=== PATIENT | female | born 1935 | race Caucasian/White ===

== ENCOUNTER 2019-09-19 09:11 | Outpatient (CLI) | payer MEDICARE, SELFPAY ==
--- NOTE | 2019-09-19 09:30 | USCV_ITS ---
Jaylin Clemens Age: 84 Gender: F : 1935 Exam Date: 09/19/2019 09:23 Ordering Phys: Lane Kennedy MD Technologist: Jackie Sharma [place] [facility] [place]: [place] BP: / HR: 43 Rhythm: Sinus Technical Quality: MEASUREMENTS (Male / Female) Normal Values 2D ECHO LV Diastolic Diameter PLAX 2.8 cm 4.2 - 5.9 / 3.9 - 5.3 cm LV Systolic Diameter PLAX 1.7 cm IVS Diastolic Thickness 1.5 cm 0.6 - 1.0 / 0.6 - 0.9 cm IVS Systolic Thickness 1.4 cm LVPW Diastolic Thickness 1.8 cm 0.6 - 1.0 / 0.6 - 0.9 cm LVPW Systolic Thickness 1.4 cm LVOT Diameter 2.0 cm LV Ejection Fraction 2D Teich 72.0 % LV Ejection Fraction MOD 2C 66.1 % LV Ejection Fraction 2C AL 66.4 % LA Diameter 3.5 cm LA Width 3.2 cm LA Height 3.8 cm RA Width 2.8 cm RA Height 3.8 cm Aorta at Sinotubular Diameter 2.6 cm M-MODE LV Diastolic Diameter MM 4.9 cm 4.2 - 5.9 / 3.9 - 5.3 cm LV Systolic Diameter MM 2.9 cm LV Ejection Fraction MM Teich 70.9 % IVS Diastolic Thickness MM 0.9 cm 0.6 - 1.0 / 0.6 - 0.9 cm IVS Systolic Thickness MM 1.3 cm LVPW Diastolic Thickness MM 1.2 cm 0.6 - 1.0 / 0.6 - 0.9 cm LVPW Systolic Thickness MM 1.5 cm RV Diastolic Diameter MM 1.1 cm Aortic Annulus Diameter 2.8 cm LA Ao Ratio MM 1.2 MV E Point Septal Separation 0.1 cm DOPPLER AV Peak Velocity 135.0 cm/s LVOT Peak Velocity 104.0 cm/s AV Area Cont Eq vti 2.5 cm squared AV Area Cont Eq pk 2.5 cm squared MV Area PHT 5.0 cm squared Mitral E to A Ratio 2.8 MV E' Velocity 140.0 cm/s TR Peak Velocity 338.0 cm/s TR Peak Gradient 45.7 mmHg TV Peak E Velocity 105.0 cm/s Right Atrial Pressure 3.0 mmHg Pulmonary Artery Systolic Pressu 48.7 mmHg PV Peak Velocity 72.0 cm/s FINDINGS Left Ventricle Normal left ventricular size and systolic function, EF 66 %. No regional wall motion abnormalities. Right Ventricle Normal right ventricular size and systolic function. Right Atrium Mildly increased right atrial size. Left Atrium Mildly increased left atrial size. Mitral Valve Thickened mitral valve. Moderate mitral annular calcification. Minimal prolapse of the anterior mitral leaflet.moderate mitral valve regurgitation. Aortic Valve Thickened aortic valve. Tricuspid Valve Moderate tricuspid valve regurgitation. Estimated pulmonary artery peak systolic pressure of 49 mmHg Pulmonic Valve Structurally normal pulmonic valve without significant stenosis. There is no pulmonic regurgitation. Pericardium Normal pericardium without effusion. Aorta Normal ascending aorta dimension. CONCLUSIONS Normal left ventricular size and systolic function, EF 66 %. No regional wall motion abnormalities. Mild biatrial enlargement. Thickened mitral valve. Moderate mitral annular calcification. prolapse of the anterior mitral leaflet. Moderate mitral valve regurgitation. Moderate tricuspid valve regurgitation. Estimated pulmonary artery peak systolic pressure of 49 mmHg. There is no pericardial effusion. There are no intracardiac masses. No previous study is available for comparison. Dr Patt Zapata MD FACC (Electronically Signed) Final Date: 19 September 2019 12:51 S
== END 2019-09-19 09:12 | disposition home or self-care (01) ==
PROVIDERS: Family Provider Internal Medicine; PCP Internal Medicine; Visit Provider Internal Medicine
DX: I48.91 Unspecified atrial fibrillation (principal); I08.1 Rheumatic disorders of both mitral and tricuspid valves
CPT/HCPCS: 93306

== ENCOUNTER → 2020-02-27 15:11 | Outpatient (BNVA) | payer MEDICARE, SELFPAY | PROVIDERS: Family Provider Internal Medicine; PCP Internal Medicine; Visit Provider Internal Medicine | DX: I48.91 Unspecified atrial fibrillation (principal); E11.9 Type 2 diabetes mellitus without complications | CPT/HCPCS: 80053; 84443; 85025 ==

== ENCOUNTER 2020-04-11 13:39 | Outpatient (CLI) | payer MEDICARE, SELFPAY ==
--- NOTE | 2020-04-11 13:49 | MM_ITS ---
WS: [id number] BILATERAL SCREENING DIGITAL MAMMOGRAM WITH CAD HISTORY: SCREENING COMPARISON: 09/21/2018, 09/10/2017 Bilateral CC and MLO views submitted. Computer aided detection analyzed. Breast composition: There are scattered areas of fibroglandular density. No suspicious masses, microc alcifications or architectural distortion. There are numerous benign-appearing and stable calcificati ons throughout each breast. No significant change or abnormal calcifications developing. MM/[id number] IMPRESSION: BI-RADS: 2-Benign FOLLOW UP: 1 Year Follow-up
== END 2020-04-11 13:40 | disposition home or self-care (01) ==
LOC: RADSHAW 13:43
PROVIDERS: PCP Internal Medicine; Visit Provider Internal Medicine
DX: Z12.31 Encounter for screening mammogram for malignant neoplasm of breast (principal)
CPT/HCPCS: 77067

== ENCOUNTER 2020-09-07 13:05 | Observation (INO) | payer MEDICARE, SELFPAY ==
[2020-09-07] VITALS (14 sets, daily range): BP systolic 133–164; BP diastolic 58–86; PULSE 70–94; RESP 16–25; TEMP 36.6–37.1; O2SAT 19–100
--- NOTE | 2020-09-07 14:09 | PC.NURSE ---
Direct admit for cardioversion Received pt from Dr. Airta's clinic. Pt is alert, oriented, reports of shortness of breath upon exertion. Cool, mottled skin on feet and hands. Pt denies any pain at this time. Telemetry shows Afib on controlled rate between 80s to 100s. Call light within reach. Oriented pt to staff. Confirmed with Pt that she last took her Xarelto yesterday around noon.
--- NOTE | 2020-09-07 14:55 | ANES.PREANE2 ---
Pre-Anesthetic Assessment Pre-Anesthetic Assessment: Height/Weight: Height 1.65 m Weight 63.503 kg Preop Diagnosis: atrial fibrillation. Proposed Procedure: cardioversion Familial anesthetic complications: none Was Beta Laura taken within 24 hours: N/A (no taken on 1200 09/07/20) Last intake: meal 0630 liquids 0630 Social: Social History: No alcohol and No tobacco Exam: Pre-Anes Outpt Exam: alert, oriented x 3 and clear to auscultation bilaterally Airway: Submandibular: WNL Cervical ROM: WNL MP: 2 Dentition: Partials Additional comments: permenant bridge. 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 Mitral valve regurgitation New onset a-fib Palpitation Recurrent depressive disorder Tricuspid regurgitation Surgical History History of colonoscopy History of hemiarthroplasty of left hip History of hemorrhoidectomy History of hysterectomy History of oophorectomy History of tonsillectomy and adenoidectomy Status post hip hemiarthroplasty Family History Other CAD (coronary artery disease) Diabetes Heart disease Hypertension Denies family history of Chronic kidney disease (CKD) Anesthesia complication Bleeding disorder Family history of premature coronary artery disease Lung disease Cancer Social History Smoking and tobacco status: never smoked Alcohol intake: current Alcohol intake frequency: few times a month Alcohol type: wine Household members: spouse Marital status: History of recent travel: No Data Anesthesia Cardiac Studies: Cardiac Event Monitor 07/06/20
--- NOTE | 2020-09-07 15:15 | PC.NURSE ---
Synchronized cardioversion Pt signed the consent. Time-out checked with Dr. Arita at bedside. Anesthesiologist at bedside. synchronized cardioversion x1. Pt converted to Sinus Rhythm. EKG taken post cardioversion. SR w/occasional PAC's. Pt is awake, alert, oriented. Denies any pain post moderate sedation. VS taken. Received verbal order from Dr. Arita read back to give IVP 20 mg Lasix one time now.
--- NOTE | 2020-09-07 15:29 | ECG_ITS ---
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 Measurements Intervals [place] Rate: 68 P: 71 TX: 185 QRS: 1 QRSD: 84 T: 66 QT: 418 QTc: 446 Interpretive Statements SINUS RHYTHM WITH MARKED SINUS ARRHYTHMIA Compared to ECG 10/11/2016 04:10:31 Sinus bradycardia no longer present Myocardial infarct finding no longer present Electronically Signed On 09-08-2020 19:32:29 INDUSTRIAL TRUCK MECHANIC by Patt Zapata M.D. [id number] f
--- NOTE | 2020-09-07 15:36 | ANE.PACU2 ---
Inpatient post-anesthesia follow up: Airway intact: Yes Vital signs: Temperature Pulse Rate Respiratory Rate Blood Pressure Pulse Oximetry Oxygen Delivery Me thod Room Air Oxygen Flow Rate Fraction of Inspir ed Oxygen Hydration adequate: Yes Nausea and vomiting: No Pain level: 1 Additional Comments: Sedated
[2020-09-07] MEDS: FUROsemide 10 mg/mL SDV 2mL 20 MG IVP (16:02)
--- NOTE | 2020-09-07 16:37 | P.HP_ITS ---
Providers/Chief Complaint Admitting Physician: Wisam Arita MD Primary Care Provider: Lane Kennedy MD Chief Complaint: electro cardio version History of Present Illness Jaylin Clemens is a 85 year old female past medical history significant for difficulty controlled new onset of atrial fibrillation on anticoagulation saw me in the clinic. She was scheduled to undergo DC cardioversion in the near future however she continues to feel weak jittery and short of breath. It is the reason she was brought in today in our clinic. When I saw her in the clinic she appeared to be pale and anemic at the same time her heart was racing and she was in A. fib not tolerating it. She was admitted to the hospital under observation for 24-hour, after explaining risk benefit and alternative for the procedure, she underwent electrical cardioversion with biphasic 120 J shock converted to sinus rhythm under anesthesia administered by anesthesiologist. Patient tolerated procedure well and felt better. CBC was consistent with anemia with hemoglobin of 6.5. Patient admits to black tar-like stool in the last few days. Review of Systems Psych: Denies: sleeping more Medications/Allergies Home Medications Medication Instructions Recorded Confirmed Last Taken Type Fish Oil 1 cap PO QAM 09/07/20 09/07/20 09/07/20 History Garlique 1,000 mg PO DAILY 09/07/20 09/07/20 Unknown History Triple-Stre Glucosamine Chondr See Rx Instructions .ROUTE .COMPLEX 09/07/20 09/07/20 Unknown History acetaminophen [Tylenol Extra 1,000 mg PO BID 09/07/20 09/07/20 Unknown History Strength] calcium 1 tab PO BID 09/07/20 09/07/20 Unknown History dronedarone [Multaq] 400 mg PO BID 09/07/20 09/07/20 09/07/20 05:15 History eplerenone [Inspra] 25 mg PO DAILY@09/07/20 09/07/20 Unknown History felodipine 5 mg PO DAILY 09/07/20 09/07/20 Unknown History levothyroxine 50 mcg PO DAILY@09/07/20 09/07/20 09/07/20 05:15 History lisinopril 10 mg PO DAILY@09/07/20 09/07/20 09/07/20 History rivaroxaban [Xarelto] 20 mg PO DAILY 09/07/20 09/07/20 09/07/20 History simvastatin 10 mg PO DAILY@12 09/07/20 09/07/20 09/07/20 05:15 History venlafaxine 112.5 mg PO DAILY@06 09/07/20 09/07/20 09/07/20 History vit C,R-Rq-vwakn-lutein-zeaxan 1 tab PO BID 09/07/20 09/07/20 Unknown History [PreserVision AREDS-2] Allergies Allergy/AdvReac Type Severity Reaction Status Date / Time nifedipine Allergy ADR-Dizzine Verified 09/07/20 16:39 ss PFSH Acute PFSH: Medical History Essential (primary) hypertension Essential hypertension Hyperlipidemia 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 Mitral valve regurgitation New onset a-fib Palpitation Recurrent depressive disorder Tricuspid regurgitation Surgical History History of colonoscopy History of hemiarthroplasty of left hip History of hemorrhoidectomy History of hysterectomy History of oophorectomy History of tonsillectomy and adenoidectomy Status post hip hemiarthroplasty Family History Other CAD (coronary artery disease) Diabetes Heart disease Hypertension Denies family history of Chronic kidney disease (CKD) Anesthesia complication Bleeding disorder Family history of premature coronary artery disease Lung disease Cancer Social History Smoking and tobacco status: never smoked Alcohol intake: current Alcohol intake frequency: few times a month Alcohol type: wine Household members: spouse Marital status: History of recent travel: No Vitals/I&O/Wt Weight last 48 hrs Weight 140 lb Physical Exam Narrative: EXAM NARRATIVE: GENERAL: Patient is alert, awake and oriented x3. NECK: No jugular vein distension. HEENT: No cyanosis. No icterus. No pallor. HEART: Regular S1 and S2. No murmur, rub or gallop. LUNGS: Clear to auscultate bilaterally. ABDOMEN: Soft, nontender and nondistended. Positive bowel sounds. No guarding, rebound or tenderness. CENTRAL NERVOUS SYSTEM: Grossly nonfocal. EXTREMITIES: Lower extremities without edema bilaterally. A&P Assessment and plan (1) Chronic a-fib: Patient underwent electrical cardioversion. She is in sinus rhythm now continue Multaq 40 mg twice a day. Xarelto has been discontinued due to severe anemia and GI bleed Status: Chronic (2) GI bleed: Admits to melena hemoglobin is 6.5 I will recheck hemoglobin if still 6.5 I will transfuse her with 2 packed red blood cells. Will check occult blood in the stool. I will add Protonix twice a day. As an outpatient we may will ask for endoscopy and colonoscopy. Status: Acute Qualifiers: GI bleed type/associated pathology: unspecified gastrointestinal hemorrhage type Qualified Code(s): K92.2 - Gastrointestinal hemorrhage, unspecified (3) Mitral valve regurgitation: Continue diuretics continue rate control Status: Acute Qualifiers: Cardiac valve disease etiology: nonrheumatic Qualified Code(s): I34.0 - Nonrheumatic mitral (valve) insufficiency (4) Essential hypertension: Well-controlled continue medicine Status: Acute Attestations Medical Necessity Statement*: Patient require continuation hospitalization for above defined care. Coding Level of Care Code New Pt Acute Managed Care Liaison for g Fwd Patient Type New History Comprehensive Exam Comprehensive Medical Decision Making Moderate Complexity Diagnoses Chronic a-fib I48.20 GI bleed K92.2 GI bleed type/associated pathology: unspecified gastrointestinal hemorrhage type Mitral valve regurgitation I34.0 Cardiac valve disease etiology: nonrheumatic Essential hypertension I10
--- NOTE | 2020-09-07 16:43 | PC.PHAR ---
pt states her metoprolol tartrate 25mg was used prn and dced a few days ago- rx filled on 08/15/20 90d/s multaq 400mg daily pt states was increased to 400mg bid a week ago-pt states she takes tylenol 1000mg bid everyday not just prn
[2020-09-07 17:19] LABS: Hematocrit 18.6 % (37.0-47.0); Hemoglobin 5.4 g/dL (11.5-15.3)
--- NOTE | 2020-09-07 17:43 | PC.NURSE ---
medication Called James to bring pt's Multaq medicine from home since we do not carry it. Med will be a non-formulary.
[2020-09-07] MEDS: acetaminophen 325 mg Tablet 650 MG PO (18:25)
[2020-09-07] MEDS: pantoprazole DR 40 mg Tablet PO (18:25)
[2020-09-07] MEDS: diphenhydrAMINE 25 mg Capsule PO (18:26)
[2020-09-07] MEDS: sodium chloride 0.9% 100 mL Bag 50 ML IV (18:26)
--- NOTE | 2020-09-07 18:48 | PC.NURSE ---
Blood transfusion started Informed consent signed for blood transfusion. Pre-medicated with tylenol and benadryl as ordered by physician. Verified with 2 nurses at bedside. Monitored pt at bedside for 15 mins during blood transfusion. No reaction noted. VS within normal.
--- NOTE | 2020-09-07 19:38 | PC.NURSE ---
Received report from YULISSA Al. Patient resting in bed. Patient has first of 2 units of PRBCs running at this time. Patient denies any symptoms of blood reaction presently. No distress observed. Assessment completed as documented.
--- NOTE | 2020-09-07 21:47 | PC.NURSE ---
Second unit PRBCs started at 2144. Remaining with patient. Patient denies any discomforts No s/s of reaction at this time.
[2020-09-07] MEDS: sodium chloride 0.9% (100 ml) 100 ML 10 ML (22:21)
[2020-09-08] VITALS (13 sets, daily range): BP systolic 131–168; BP diastolic 67–86; PULSE 69–92; RESP 12–23; TEMP 36.2–37.3; O2SAT 97–99
[2020-09-08] MEDS: lisinopril 10 mg Tablet PO (06:11)
[2020-09-08] MEDS: venlafaxine ER (24HR) 37.5 mg Capsule 112.5 MG PO (06:11)
[2020-09-08] MEDS: levothyroxine 50 mcg Tablet PO (06:11)
--- NOTE | 2020-09-08 06:13 | PC.NURSE ---
0500 medications few minutes late to [facility] care. Assisted patient up to bathroom at this time. Patient reports feeling well this morning.
--- NOTE | 2020-09-08 07:11 | PC.NURSE ---
patient resting in bed at this time. Visitor at bedside. assessment performed. patient denied any needs at this time. call light within reach.
--- NOTE | 2020-09-08 07:52 | PC.NURSE ---
patient sitting up in bed eating breakfast at this time. patient denies any needs at this time. call light within reach.
[2020-09-08 07:57] LABS: Basophils % 0.3 %; Eosinophils # 0.3 10^3/uL (0.0-0.8); Eosinophils % 4.4 %; Hematocrit 23.6 % (37.0-47.0); Lymphocytes # 1.7 10^3/uL (0.8-4.8); Lymphocytes % 22.1 %; Mean Corpuscular Volume 78.9 fL (81-99); Mean Platelet Volume 9.7 fL (7.4-10.4); Monocytes # 0.8 10^3/uL (0.2-0.9); Monocytes % 10.1 %; Neutrophils # 4.83 10^3/uL (1.8-7.7); Nucleated Red Blood Cells % 0 %; Platelet Count 316 10^3/cmm (130-400); Red Blood Count 2.99 10^6/uL (4.1-5.3); Red Cell Distribution Width 16.2 % (12.1-15.1); White Blood Count 7.7 10^3/uL (4.0-10.0)
[2020-09-08 08:10] LABS: Hemoglobin 7.5 g/dL (11.5-15.3); Mean Corpuscular HGB Conc 31.8 g/dL (30.0-36.0); Mean Corpuscular Hemoglobin 25.1 pg (28.0-34.0)
[2020-09-08] MEDS: pantoprazole DR 40 mg Tablet PO (08:29)
[2020-09-08 08:45] LABS: Anion Gap 13.4 (5-19); Blood Urea Nitrogen 25 mg/dL (8-23); Calcium 8.9 mg/dL (8.5-10.5); Carbon Dioxide 22 mmol/L (22-29); Chloride 104 mmol/L (98-107); Glucose 79 mg/dL (65-115); Osmolality Calculated 283 mOsm/kg (285-295); Potassium 4.4 mmol/L (3.5-5.1); Sodium 135 mmol/L (136-145)
[2020-09-08 11:32] LABS: Ferritin 11 ng/mL (15-150)
[2020-09-08] MEDS: diphenhydrAMINE 50 mg Capsule PO (11:33)
[2020-09-08] MEDS: acetaminophen 325 mg Tablet 650 MG PO (11:33)
--- NOTE | 2020-09-08 11:40 | PC.NURSE ---
Dr. Arita gave verbal order to pre-medicate patient before blood transfusion. orders put in and medications administered.
--- NOTE | 2020-09-08 12:27 | PC.CHAP ---
Pastoral Care Encounter/Spiritual Assessment Type of Contact [] Declined director agricultural services visit [] Patient/Family/Request visit [] Outpatient visit [] Follow-up visit [] Physician referral [] Code/Alert [XX] Routine visit [] Staff referral [] Actively dying [] Patient sleeping [] Family support [] [] Out of room [] Palliative care [] [] Receiving care in room [] Pre-surgical visit [] Trauma [] Long length of stay [] ICU visit [] Other: Relational/Emotional Strength [XX] Patient feels connected with others/family/visitors/staff [] Distress [] Loneliness/isolation [] Abandonment Spirituality of Patient [XX] Person of Meghana [XX] Attends Mormon of their Meghana [XX] Believes in Prayer [] Reads Bible or Islam materials [] There are Spiritual issues to be addressed Decal Applier Interventions [XX] Prayer [XX] Active listening [XX] Non-anxious presence [] Spiritual/emotional support [] Crisis/trauma care [] Spiritual counseling [] Bereavement support [] Provided bereavement packet [] Provided Bible/devotional materials [] Provided toy/stuffed animal, coloring book to patient or family member [] Provided Communion [] Anointing/[place] [] Salvation [XX] Completed spiritual assessment [] Other: Impact on Illness or Injury [] Angry [] Fearful [] Anxious [] Often cries [] Exhaustion [] Unable to work [] Unable to attend methodist [] Unable to walk/stand [] Unable to read [] Unable to drive [] Unable to eat/drink [] Unable to sleep [] Unable to be with family [] Patient intubated [] Other: Summary: Pt in good spirits and in peace provided by the UTILICASE. was present. Adult children are involved, as well. Brief visit focused on her health status. In addition to prayer for her health and family, she asked director agricultural services to include prayer for the country. Joined with her and her in prayer. Time spent with patient: 10 mins
--- NOTE | 2020-09-08 13:19 | PC.NURSE ---
red blood cell transfusion started. vitals documented. patient educated on reaction symptoms and to notify nurse of any of these. patient verbalized an understanding.
--- NOTE | 2020-09-08 15:28 | P.DS_ITS ---
Discharge Providers Date of Admission: 09/07/20 13:05 Date of Discharge: September 08, 2020 Attending Provider at Admission: Wisam Arita MD Attending Provider at Discharge: Wisam Arita MD Primary Care Provider: Lane Kennedy MD Diagnoses at Discharge Discharge Diagnosis (1) Chronic a-fib: Status: Resolved Permanent problem details: Paroxysmal. Symptomatic in afib. Feels well in SR. Symptoms despite good rate control. (2) GI bleed: Status: Resolved Qualifiers: GI bleed type/associated pathology: unspecified gastrointestinal hemorrhage type Qualified Code(s): K92.2 - Gastrointestinal hemorrhage, unspecified (3) Mitral valve regurgitation: Status: Acute Qualifiers: Cardiac valve disease etiology: nonrheumatic Qualified Code(s): I34.0 - Nonrheumatic mitral (valve) insufficiency (4) Essential hypertension: Status: Acute Reason for Visit Reason for Visit: electro cardio version Hospital Course Hospital Course 85-year-old female was admitted with GI bleed atrial fibrillation with rapid ventricle response and critically low hemoglobin underwent electrical cardioversion yesterday. She received 3 units of packed red blood cells. Black tarry stool improved representing cessation of the melena. She remained stable vital owens. She was started on Protonix. We will be discharging her today since she is in sinus rhythm and hemoglobin is in optimal range of >8.0. I will refer her back to Dr. Kennedy who is her primary care physician for endoscopic/colonoscope. We will see her back in cardiology clinic in 7 days at that time we will check CBC BMP and EKG. Physical Exam Narrative: EXAM NARRATIVE: GENERAL: Patient is alert, awake and oriented x3. NECK: No jugular vein distension. HEENT: No cyanosis. No icterus. No pallor. HEART: Regular S1 and S2. No murmur, rub or gallop. LUNGS: Clear to auscultate bilaterally. ABDOMEN: Soft, nontender and nondistended. Positive bowel sounds. No guarding, rebound or tenderness. CENTRAL NERVOUS SYSTEM: Grossly nonfocal. EXTREMITIES: Lower extremities without edema bilaterally. Discharge Data Data Completed and Pending: Pending at discharge Category Date Time Status Complete Blood Co unt w/Auto Routine Lab 09/08/20 11:01 Ordered Immunochemical Fe gerson OCB Routine Lab 09/07/20 16:48 Uncollected Leukocyte Reduced RBC Routine Lab 09/07/20 16:48 Results Type and Screen R outine Lab 09/07/20 16:48 Results Labs from last 24 hours 09/08/20 09/08/20 09/08/20 07:34 07:12 07:12 WBC 7.7 RBC 2.99 L Hgb 7.5 L D Hct 23.6 L MCV 78.9 L MCH 25.1 L D MCHC 31.8 D RDW 16.2 H Plt Count 316 MPV 9.7 Neut % (Auto) 63.0 Lymph % (Auto) 22.1 [place] % (Auto) 10.1 Eos % (Auto) 4.4 Baso % (Auto) 0.3 Neut # (Auto) 4.83 Lymph # (Auto) 1.7 [place] # (Auto) 0.8 Eos # (Auto) 0.3 Baso # (Auto) 0.0 Nucleated RBC % (a uto) 0 Nucleated RBCs # 0.0 Sodium 135 L Potassium 4.4 Chloride 104 Carbon Dioxide 22 Anion Gap 13.4 BUN 25 H Creatinine 1.0 H GFR Calculation Not Reportable Glucose 79 Calculated Osmolal ity 283 L Calcium 8.9 Ferritin 11 L Blood Type Rho(D) Type Antibody Screen Crossmatch 09/07/20 09/07/20 16:48 16:48 WBC RBC Hgb 5.4 L* Hct 18.6 L* MCV MCH MCHC RDW Plt Count MPV Neut % (Auto) Lymph % (Auto) [place] % (Auto) Eos % (Auto) Baso % (Auto) Neut # (Auto) Lymph # (Auto) [place] # (Auto) Eos # (Auto) Baso # (Auto) Nucleated RBC % (a uto) Nucleated RBCs # Sodium Potassium Chloride Carbon Dioxide Anion Gap BUN Creatinine GFR Calculation Glucose Calculated Osmolal ity Calcium Ferritin Blood Type A Negative Rho(D) Type Negative Antibody Screen Negative Crossmatch See Detail Vitals: Last Vital Signs Temp 98.3 F 09/08/20 14:41 Pulse 75 09/08/20 14:41 Resp 21 H 09/08/20 14:41 BP 131/73 09/08/20 14:41 Pulse Ox 98 09/08/20 14:41 Discharge Plan Discharge Patient Disposition: Home Condition: Stable Prescriptions: New pantoprazole 40 mg Tablet,Delayed Release (Dr/Ec) 40 mg PO BID Qty: 60 RF: 1 Continued venlafaxine 37.5 mg capsule,extended release 24hr 112.5 mg PO DAILY@06 RF: 0 simvastatin 10 mg tablet 10 mg PO DAILY@12 RF: 0 Multaq 400 mg tablet 400 mg PO BID RF: 0 levothyroxine 50 mcg tablet 50 mcg PO DAILY@05 RF: 0 felodipine 5 mg tablet extended release 24 hr 5 mg PO DAILY RF: 0 Inspra 25 mg tablet 25 mg PO DAILY@12 RF: 0 PreserVision AREDS-2 [id number] Capsule 1 tab PO BID RF: 0 Tylenol Extra Strength 500 mg Tablet 1,000 mg PO BID RF: 0 Garlique 1,000 mg PO DAILY RF: 0 Triple-Stre Glucosamine Chondr See Rx Instructions .ROUTE .COMPLEX RF: 0 calcium 1 tab PO BID RF: 0 Changed lisinopril 10 mg tablet 15 mg PO DAILY@05 Qty: 30 RF: 3 Discontinued Xarelto 20 mg tablet 20 mg PO DAILY RF: 0 Fish Oil 1 cap PO QAM RF: 0 Discharge Orders: Discharge Order (Routine); Ordered 09/08/20 Ordered By: Wisam Arita Referrals: Wisam Arita MD [Physician] - 1 week ([facility] will be calling you to schedule a cardiology followup to be seen by Dr. Arita in approx. 1 week and have CBC &BMP Bloodwork done. If you do not hear from them by Thursday afternoon, Please give them a call. Thank You) Discharge Diet: Cardiac and Low Salt Discharge Activity: Increase activity as tolerated Patient Instructions: Anemia, Pantoprazole (By mouth), GI Bleeding Activity Restrictions/Additional Instructions: Follow-up with Dr. 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
[2020-09-08 17:10] LABS: Basophils % 0.2 %; Eosinophils # 0.5 10^3/uL (0.0-0.8); Eosinophils % 5.4 %; Hematocrit 27.3 % (37.0-47.0); Hemoglobin 8.6 g/dL (11.5-15.3); Lymphocytes # 1.8 10^3/uL (0.8-4.8); Lymphocytes % 20.8 %; Mean Corpuscular HGB Conc 31.5 g/dL (30.0-36.0); Mean Corpuscular Hemoglobin 25.6 pg (28.0-34.0); Mean Corpuscular Volume 81.3 fL (81-99); Mean Platelet Volume 9.7 fL (7.4-10.4); Monocytes % 11.4 %; Neutrophils # 5.39 10^3/uL (1.8-7.7); Neutrophils % 61.9 %; Nucleated Red Blood Cells % 0 %; Platelet Count 315 10^3/cmm (130-400); Red Blood Count 3.36 10^6/uL (4.1-5.3); Red Cell Distribution Width 16.1 % (12.1-15.1); White Blood Count 8.7 10^3/uL (4.0-10.0)
--- NOTE | 2020-09-22 18:25 | P.PCN_ITS ---
Procedure Note: Date of procedure: 09/07/20 Pre-procedure diagnosis: Atrial fibrillation with rapid ventricle response Other Information: After carefully explaining all risk and benefit and confirming that patient was taking anticoagulation apixaban for the last 6 to 8 weeks regularly we decided to proceed with electrical cardioversion. Patient was consented by anesthesia as well. Patient was explained by myself the risk for stroke arrhythmia including ventricular tachycardia ventricular fibrillation. Patient was given IV propofol by anesthesia colleagues. After confirming deep sedation biphasic defibrillator anterior and posterior cardioversion pads were attached to the patient. 120 J sync defibrillation was delivered through biphasic defibrillator. Patient converted into sinus rhythm. EKG was performed which also confirmed presence of sinus rhythm. Procedure was termed successful. Patient tolerated procedure well without any complication. 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
== END 2020-09-08 17:00 | disposition home or self-care (01) ==
PROVIDERS: Admitting Provider Internal Medicine Cardiovascular Disease; PCP Internal Medicine; Visit Provider Internal Medicine Cardiovascular Disease
DX: I48.20 Chronic atrial fibrillation, unspecified (principal); K92.2 Gastrointestinal hemorrhage, unspecified; I34.0 Nonrheumatic mitral (valve) insufficiency; I10 Essential (primary) hypertension; E78.5 Hyperlipidemia, unspecified; E03.9 Hypothyroidism, unspecified; Z82.49 Family history of ischemic heart disease and other diseases of the circulatory system; Z83.3 Family history of diabetes mellitus
CPT/HCPCS: 36415; 36430; 80048; 82274; 82728; 85014; 85018; 85025; 86850; 86900; 86920; 93005; G0378; G0379; J1940; P9016; Q0163

== ENCOUNTER → 2020-09-13 09:14 | Outpatient (BNVA) | payer MEDICARE, SELFPAY | PROVIDERS: PCP Internal Medicine; Visit Provider Internal Medicine | DX: D50.0 Iron deficiency anemia secondary to blood loss (chronic) (principal); E78.00 Pure hypercholesterolemia, unspecified | CPT/HCPCS: 87635 ==

== ENCOUNTER 2020-09-17 07:55 | Day surgery (SDC) | payer MEDICARE, SELFPAY ==
[2020-09-17 08:49] VITALS: BP 205/83; PULSE 75; RESP 18; TEMP 36.5; O2SAT 100
--- NOTE | 2020-09-17 08:57 | W.PM.OPSFHP ---
Same Day Surgery H&P Indication for Procedure/HPI DATE OF PROCEDURE: September 17, 2020 CHIEF COMPLAINT/INDICATIONFOR SURGICAL PROCEDURE: Anemia due to GI blood loss PREOP DIAGNOSIS: DBL PLANNED PROCEDRUE: Operation Date: 09/17/20 09:15 Proposed Procedures p EGD 27728 12708 K92.2 D64.9(Not Applicable) - Lane Kennedy MD s Colonoscopy(Not Applicable) - Lane Kennedy MD Medications/Allergies* Home Medications Medication Instructions Recorded Confirmed Type Garlique 1,000 mg PO DAILY 09/07/20 09/17/20 History Multaq 400 mg PO BID 09/07/20 09/17/20 History PreserVision AREDS-2 1 tab PO BID 09/07/20 09/17/20 History Triple-Stre Glucosamine Chondr See Rx Instructions .ROUTE .COMPLEX 09/07/20 09/17/20 History acetaminophen [Tylenol Extra 1,000 mg PO BID 09/07/20 09/17/20 History Strength] calcium 1 tab PO BID 09/07/20 09/17/20 History eplerenone [Inspra] 25 mg PO DAILY@12 09/07/20 09/17/20 History felodipine 5 mg PO DAILY 09/07/20 09/17/20 History levothyroxine 50 mcg PO DAILY@05 09/07/20 09/17/20 History simvastatin 10 mg PO DAILY@12 09/07/20 09/17/20 History venlafaxine 112.5 mg PO DAILY@06 09/07/20 09/17/20 History Allergies/Adverse Reactions Allergy/AdvReac Type Severity Reaction Status Date / Time nifedipine Allergy ADR-Dizzine Verified 09/17/20 08:44 ss Pertinent History/Comorbid Conditions* Medical History (Updated 09/14/20 @ 00:00 by ) Essential hypertension Hyperlipidemia 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 Mitral valve regurgitation New onset a-fib Palpitation Recurrent depressive disorder Tricuspid regurgitation Surgical History (Updated 11/17/19 @ 10:[address] MD) History of colonoscopy History of hemiarthroplasty of left hip History of hemorrhoidectomy History of hysterectomy History of oophorectomy History of tonsillectomy and adenoidectomy Status post hip hemiarthroplasty Family History (Updated 07/04/20 @ 16:16 by Sandy Pryor RN) Diabetes CAD (coronary artery disease) Heart disease Hypertension Denies family history of Chronic kidney disease (CKD) Anesthesia complication Bleeding disorder Family history of premature coronary artery disease Lung disease Cancer Social History Smoking and tobacco status: never smoked Alcohol intake: current Alcohol intake frequency: few times a month Alcohol type: wine Household members: spouse Marital status: History of recent travel: No Pertinent Exam Findings alert, oriented x 3, clear to auscultation bilaterally, regular rate & rhythm, operative site marked and procedure specific exam findings Recommendations Surgery/Procedure today Coding Level of Care Code Acute 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
[2020-09-17] MEDS: sodium chloride 0.9% 1,000 ML 30 ML IV (09:00)
[2020-09-17 09:05] VITALS: BP 190/105
--- NOTE | 2020-09-17 09:25 | ANES.PREANE2 ---
Pre-Anesthetic Assessment Pre-Anesthetic Assessment: Height/Weight: Height 1.65 m Weight 63.503 kg Temp Pulse Resp BP Pulse Ox 97.7 F 75 18 205/83 100 09/17/20 08:49 09/17/20 08:49 09/17/20 08:49 09/17/20 08:49 09/17/20 08:49 Preop Diagnosis: DBL Proposed Procedure: Operation Date: 09/17/20 09:15 Proposed Procedures p EGD [id number] K92.2 D64.9(Not Applicable) - Lane Kennedy MD s Colonoscopy(Not Applicable) - Lane Kennedy MD Was Beta Laura taken within 24 hours: N/A Last intake: Intake Last Liquid Date 09/16/20 Last Solid Date 09/15/20 Social: Social History: No alcohol and No tobacco Exam: Pre-Anes Outpt Exam: alert, oriented x 3, clear to auscultation bilaterally and regular rate & rhythm Airway: Submandibular: WNL Cervical ROM: WNL MP: 2 Dentition: Full CV/HEM: CV/HEM: Anemia, HTN and Murmur GI: GI: GERD Metabolic: Metabolic: Thyroid Anesthetic Plan: ASA status: 3 Anesthesia: MAC Risk of > 500 ml blood loss (7ml/kg in children): No Meds/Allergies Current Medications: Current Medications Generic Name Dose Route Start Last Admin Trade Name Freq PRN Reason Stop Dose Admin Sodium Chloride 1,000 mls @ 30 ml s/hr 09/17/20 08:45 09/17/20 09:00 Sodium Chloride 0.9% IV 30 mls/hr .Q24H ERIKA Administration PFSH Anesthesia PFSH: Medical History Essential (primary) hypertension Essential hypertension Hyperlipidemia 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 Mitral valve regurgitation New onset a-fib Palpitation Recurrent depressive disorder Tricuspid regurgitation Surgical History History of colonoscopy History of hemiarthroplasty of left hip History of hemorrhoidectomy History of hysterectomy History of oophorectomy History of tonsillectomy and adenoidectomy Status post hip hemiarthroplasty Family History Other CAD (coronary artery disease) Diabetes Heart disease Hypertension Denies family history of Chronic kidney disease (CKD) Anesthesia complication Bleeding disorder Family history of premature coronary artery disease Lung disease Cancer Social History Smoking and tobacco status: never smoked Alcohol intake: current Alcohol intake frequency: few times a month Alcohol type: wine Household members: spouse Marital status: History of recent travel: No Data Anesthesia Cardiac Studies: Cardiac Event Monitor 07/06/20
--- NOTE | 2020-09-17 09:32 | PC.NURSE ---
Anesthesia notified of high BP, no new orders at this time.
[2020-09-17 10:04] VITALS: BP 181/95; PULSE 68; RESP 16; TEMP 36.6; O2SAT 96
--- NOTE | 2020-09-17 10:08 | ANE.PACU2 ---
Inpatient post-anesthesia follow up: Airway intact: Yes Vital signs: Temperature 97.9 F Pulse Rate 68 Respiratory Rate 16 Blood Pressure 181/95 Pulse Oximetry 96 Oxygen Delivery Me thod Room Air Oxygen Flow Rate Fraction of Inspir ed Oxygen Hydration adequate: Yes Nausea and vomiting: No Pain level: 1 Mental status: Baseline
[2020-09-17 10:17] VITALS: BP 190/88; PULSE 69; RESP 18; O2SAT 100
--- NOTE | 2020-09-17 10:26 | PC.NURSE ---
DR. GARAY NOTIFIED. PT INSTRUCTED TO GO HOME AND TAKE BP MED. PT DENIES ANY SYMPTOMS.
--- NOTE | 2020-09-17 11:59 | ANE.PACU2 ---
Inpatient post-anesthesia follow up: Airway intact: Yes Vital signs: Temperature 97.9 F Pulse Rate 69 Respiratory Rate 18 Blood Pressure 190/88 Pulse Oximetry 100 Oxygen Delivery Me thod Room Air Oxygen Flow Rate Fraction of Inspir ed Oxygen Hydration adequate: Yes Nausea and vomiting: No Pain level: 1 Mental status: Baseline Additional Comments: Hypertension
== END 2020-09-17 10:33 | disposition home or self-care (01) ==
PROVIDERS: PCP Internal Medicine; Visit Provider Internal Medicine
PROC: 0DJ08ZZ Inspection of Upper Intestinal Tract, Via Natural or Artificial Opening Endoscopic (ICD-10-PCS; CPT 43235; principal; 2020-09-17 09:15)
PROC: 0DJD8ZZ Inspection of Lower Intestinal Tract, Via Natural or Artificial Opening Endoscopic (ICD-10-PCS; CPT 45378; 2020-09-17 09:15)
DX: D64.9 Anemia, unspecified (principal); K57.30 Diverticulosis of large intestine without perforation or abscess without bleeding; I10 Essential (primary) hypertension; K21.9 Gastro-esophageal reflux disease without esophagitis; E78.5 Hyperlipidemia, unspecified; E03.9 Hypothyroidism, unspecified
CPT/HCPCS: 43235; 45378; J2704; J7030

== ENCOUNTER → 2020-09-26 10:42 | Outpatient (BNVA) | payer MEDICARE, SELFPAY | PROVIDERS: PCP Internal Medicine; Visit Provider Internal Medicine | DX: D50.0 Iron deficiency anemia secondary to blood loss (chronic) (principal); I10 Essential (primary) hypertension; E78.00 Pure hypercholesterolemia, unspecified; E03.8 Other specified hypothyroidism; E06.3 Autoimmune thyroiditis | CPT/HCPCS: 85025 ==

== ENCOUNTER → 2020-11-01 15:21 | Outpatient (BNVA) | payer MEDICARE, SELFPAY | PROVIDERS: PCP Internal Medicine; Visit Provider Internal Medicine | DX: D50.0 Iron deficiency anemia secondary to blood loss (chronic) (principal) | CPT/HCPCS: 83550; 85025 ==

== ENCOUNTER → 2020-11-07 09:14 | Outpatient (BNVA) | payer MEDICARE, SELFPAY | PROVIDERS: PCP Internal Medicine; Visit Provider Internal Medicine | DX: D50.0 Iron deficiency anemia secondary to blood loss (chronic) (principal) | CPT/HCPCS: 82270 ==

== ENCOUNTER → 2020-11-08 13:01 | Day surgery (SDC) | payer MEDICARE, SELFPAY ==
[2020-11-08] MEDS: ferric carboxy (IVPB) 750 MG in sodium chloride 0.9% (100 ml) 100 ML 300 MG IV (13:20)
[2020-11-08 13:25] VITALS: BP 180/77; PULSE 71; RESP 18; TEMP 36.3; O2SAT 100; BMI 22.4
== END ==
PROVIDERS: PCP Internal Medicine; Visit Provider Internal Medicine
DX: D50.9 Iron deficiency anemia, unspecified (principal); K90.9 Intestinal malabsorption, unspecified
CPT/HCPCS: 96365; J1439

== ENCOUNTER → 2020-11-15 12:56 | Day surgery (SDC) | payer MEDICARE, SELFPAY ==
[2020-11-15 13:25] VITALS: BP 190/92; PULSE 90; RESP 18; TEMP 36.7; O2SAT 99; BMI 21.9
[2020-11-15] MEDS: ferric carboxy (IVPB) 750 MG in sodium chloride 0.9% (100 ml) 100 ML 345 MG IV (13:25)
== END ==
PROVIDERS: PCP Internal Medicine; Visit Provider Internal Medicine
DX: D50.9 Iron deficiency anemia, unspecified (principal); K90.9 Intestinal malabsorption, unspecified
CPT/HCPCS: 96365; J1439

== ENCOUNTER → 2020-11-29 09:48 | Outpatient (BNVA) | payer MEDICARE, SELFPAY | PROVIDERS: PCP Internal Medicine; Visit Provider Internal Medicine | DX: D50.0 Iron deficiency anemia secondary to blood loss (chronic) (principal); K90.9 Intestinal malabsorption, unspecified | CPT/HCPCS: 83550; 85025 ==

== ENCOUNTER → 2020-12-13 10:46 | Outpatient (BNVA) | payer MEDICARE, SELFPAY | PROVIDERS: PCP Internal Medicine; Visit Provider Internal Medicine | DX: K90.9 Intestinal malabsorption, unspecified (principal); D50.0 Iron deficiency anemia secondary to blood loss (chronic) | CPT/HCPCS: 85025 ==

== ENCOUNTER 2021-04-18 13:42 | Outpatient (CLI) | payer MEDICARE, SELFPAY ==
--- NOTE | 2021-04-18 14:07 | MM_ITS ---
WS: [id number] BILATERAL DIGITAL SCREENING MAMMOGRAPHY WITH CAD CLINICAL INFORMATION: SCREENING HISTORY: Screening mammogram. No current complaints. COMPARISON: April 11, 2020 TECHNIQUE: Bilateral CC and MLO views. FINDINGS: Scattered fibroglandular densities bilaterally. No suspicious focal mass, asymmetry, calcifications, or architectural distortion. No evidence of malignancy. Punctate and lucent centered calcifications. Stable diffuse parenchymal calcifications. Vascular calcification. MM/[place] [id number] IMPRESSION: BI-RADS: 2-Benign FOLLOW UP: 1 Year Follow-up Recommend return to annual screening mammography.
== END 2021-04-18 13:43 | disposition home or self-care (01) ==
PROVIDERS: PCP Internal Medicine; Visit Provider Internal Medicine
DX: Z12.31 Encounter for screening mammogram for malignant neoplasm of breast (principal)
CPT/HCPCS: 77067

== ENCOUNTER 2021-08-13 08:24 | Outpatient (CLI) | payer MEDICARE, SELFPAY ==
--- NOTE | 2021-08-13 08:45 | US_ITS ---
WS: [id number] ULTRASOUND BREAST RIGHT TECHNIQUE: Ultrasound right breast focused area of concern. CLINICAL INFORMATION: Painful right breast COMPARISON: Ultrasound and mammogram April 18, 2021 FINDINGS: Ultrasound right breast in the area of patient concern. Ultrasound at the 6-12 o'clock position right breast. Normal underlying breast parenchymal tissue. No cystic or solid lesions. No suspicious abnor malities. No lesions to target for biopsy. US/US breast RT complete [id number] IMPRESSION: Normal right breast ultrasound in the area of patient concern. No suspicious ab normalities. RECOMMEND RETURN TO ANNUAL SCREENING MAMMOGRAPHY.
== END 2021-08-13 08:25 | disposition home or self-care (01) ==
LOC: RAD 08:29
PROVIDERS: PCP Internal Medicine; Visit Provider Internal Medicine
DX: N64.4 Mastodynia (principal)
CPT/HCPCS: 76641

== ENCOUNTER → 2021-11-12 13:58 | Outpatient (BNVA) | payer MEDICARE, SELFPAY | PROVIDERS: PCP Internal Medicine; Visit Provider Internal Medicine | DX: K90.9 Intestinal malabsorption, unspecified (principal); E78.00 Pure hypercholesterolemia, unspecified; N39.3 Stress incontinence (female) (male); I48.20 Chronic atrial fibrillation, unspecified; I10 Essential (primary) hypertension | CPT/HCPCS: 80053; 80061; 83550; 84443 ==

== ENCOUNTER → 2021-12-16 15:43 | Outpatient (BNVA) | payer MEDICARE, SELFPAY | PROVIDERS: PCP Internal Medicine; Visit Provider Internal Medicine Cardiovascular Disease | DX: I48.20 Chronic atrial fibrillation, unspecified (principal); I10 Essential (primary) hypertension; I34.0 Nonrheumatic mitral (valve) insufficiency; I36.1 Nonrheumatic tricuspid (valve) insufficiency; E78.00 Pure hypercholesterolemia, unspecified; Z87.891 Personal history of nicotine dependence; Z79.01 Long term (current) use of anticoagulants | CPT/HCPCS: 93005; 99214 ==

== ENCOUNTER → 2021-12-26 12:22 | Day surgery (SDC) | payer MEDICARE, SELFPAY ==
[2021-12-26 12:32] VITALS: BP 175/100; PULSE 92; RESP 18; TEMP 36.9; O2SAT 97
[2021-12-26] MEDS: ferric carboxy (IVPB) 750 MG in sodium chloride 0.9% (100 ml) 100 ML 345 MG IV (12:46)
== END ==
PROVIDERS: PCP Internal Medicine; Visit Provider Internal Medicine
DX: K90.9 Intestinal malabsorption, unspecified (principal)
CPT/HCPCS: 96365; J1439

== ENCOUNTER → 2022-01-02 12:20 | Day surgery (SDC) | payer MEDICARE, SELFPAY ==
[2022-01-02] MEDS: ferric carboxy (IVPB) 750 MG in sodium chloride 0.9% (100 ml) 100 ML 345 MG IV (12:27)
[2022-01-02 12:33] VITALS: BP 141/95; PULSE 70; RESP 18; TEMP 36.6; O2SAT 97
== END ==
PROVIDERS: PCP Internal Medicine; Visit Provider Internal Medicine
DX: K90.9 Intestinal malabsorption, unspecified (principal)
CPT/HCPCS: 80053; 84439; 84443; 84481; 93005; 96365; J1439

== ENCOUNTER → 2022-01-20 12:26 | Outpatient (BNVA) | payer MEDICARE, SELFPAY | PROVIDERS: PCP Internal Medicine; Visit Provider Internal Medicine Cardiovascular Disease | DX: R00.0 Tachycardia, unspecified (principal); I48.92 Unspecified atrial flutter; I25.2 Old myocardial infarction; R94.31 Abnormal electrocardiogram [ECG] [EKG]; I48.20 Chronic atrial fibrillation, unspecified | CPT/HCPCS: 93005 ==

== ENCOUNTER → 2022-01-23 15:26 | Outpatient (BNVA) | payer MEDICARE, SELFPAY | PROVIDERS: PCP Internal Medicine; Visit Provider Internal Medicine Cardiovascular Disease | DX: R00.1 Bradycardia, unspecified (principal); R94.31 Abnormal electrocardiogram [ECG] [EKG]; I25.2 Old myocardial infarction; I48.20 Chronic atrial fibrillation, unspecified | CPT/HCPCS: 93005 ==

== ENCOUNTER → 2022-01-29 08:11 | Outpatient (BNVA) | payer MEDICARE, SELFPAY | PROVIDERS: PCP Internal Medicine; Referring Provider Dermatology; Visit Provider Podiatrist Foot & Ankle Surgery | DX: Q82.8 Other specified congenital malformations of skin (principal); M79.671 Pain in right foot; M79.672 Pain in left foot | CPT/HCPCS: 17110; 99203 ==

== ENCOUNTER 2022-03-25 06:45 | Outpatient (CLI) | payer MEDICARE, SELFPAY ==
--- NOTE | 2022-03-25 07:15 | USCV_ITS ---
Jaylin Clemens Age: 86 Gender: F : 1935 Exam Date: 03/25/2022 07:04 Ordering Phys: Jenny Gutiérrez MD ([email or web address]) Technologist: Exam [place] [facility] [place]ication: MURMUR BP: 130 / 75 HR: 90 Rhythm: Sinus Technical Quality: Adequate MEASUREMENTS (Male / Female) Normal Values 2D ECHO LVOT Diameter 2.0 cm LV Ejection Fraction MOD 2C 67.3 % LV Ejection Fraction 2C AL 68.8 % LA Diameter 3.6 cm Aorta at Sinotubular Diameter 1.9 cm IVC Diameter 1.0 cm M-MODE LV Diastolic Diameter MM 3.8 cm 4.2 - 5.9 / 3.9 - 5.3 cm LV Systolic Diameter MM 2.9 cm LV Ejection Fraction MM Teich 50.2 % IVS Diastolic Thickness MM 1.1 cm 0.6 - 1.0 / 0.6 - 0.9 cm IVS Systolic Thickness MM 1.3 cm LVPW Diastolic Thickness MM 1.0 cm 0.6 - 1.0 / 0.6 - 0.9 cm LVPW Systolic Thickness MM 1.4 cm RV Diastolic Diameter MM 0.8 cm Aortic Annulus Diameter 2.8 cm LA Ao Ratio MM 1.2 MV E Point Septal Separation 1.3 cm DOPPLER AV Peak Velocity 127.0 cm/s LVOT Peak Velocity 86.0 cm/s AV Area Cont Eq vti 2.3 cm squared AV Area Cont Eq pk 2.1 cm squared MV Area PHT 5.0 cm squared Mitral E to A Ratio 4.0 MV E' Velocity 68.5 cm/s Mitral E to MV E' Ratio 8.0 Mitral E to LV E' Lateral Ratio 8.3 Mitral E to LV E' Septal Ratio 7.8 TR Peak Velocity 333.0 cm/s TR Peak Gradient 44.4 mmHg TV Peak E Velocity 88.0 cm/s Right Atrial Pressure 3.0 mmHg Pulmonary Artery Systolic Pressu 47.4 mmHg PV Peak Velocity 89.0 cm/s FINDINGS Left Ventricle Normal left ventricular size, systolic function and wall thickness, with no regional wall motion abnormalities. Left ventricular ejection fraction is estimated at 65-70 %. Right Ventricle Normal right ventricular size and systolic function. RVSP could not be calculated due to incomplete tricuspid regurgitation velocity profile. Right Atrium Normal right atrial size. Right atrial pressure at 8 mmHg. Left Atrium Mildly increased left atrial size. Mitral Valve Moderate mitral annular calcification. No mitral valve stenosis. Mild mitral valve regurgitation. Aortic Valve Mildly thickened and calcified probably trileaflet aortic valve. No aortic stenosis. No aortic valve regurgitation. Tricuspid Valve Structurally normal tricuspid valve. Trace tricuspid valve regurgitation. Pulmonic Valve Pulmonic valve not well visualized. No pulmonary valve stenosis. Pericardium No pericardial effusion. Aorta Normal size aortic root and proximal ascending aorta. IVC Normal sized inferior vena cava with less than 50% respiratory variation. CONCLUSIONS 1. Normal left ventricular size, systolic function and wall thickness, with no regional wall motion abnormalities. Left ventricular ejection fraction is estimated at 65-70 %. 2. Normal right ventricular size and systolic function. 3. Mild mitral valve regurgitation. 4. Mildly thickened and calcified aortic valve without stenosis or regurgitation. 5. When compared to previous echocardiogram dated 08/28/2019, tricuspid valve regurgitation seems to be trace now. Jenny Gutiérrez MD (Electronically Signed) Final Date: 27 March 2022 18:24 S
== END 2022-03-25 06:46 | disposition home or self-care (01) ==
LOC: RAD 06:46
PROVIDERS: PCP Internal Medicine; Visit Provider Internal Medicine Cardiovascular Disease
DX: I48.91 Unspecified atrial fibrillation (principal); R01.1 Cardiac murmur, unspecified; I08.0 Rheumatic disorders of both mitral and aortic valves
CPT/HCPCS: 93306

== ENCOUNTER → 2022-04-16 08:01 | Outpatient (BNVA) | payer MEDICARE, SELFPAY | PROVIDERS: PCP Internal Medicine; Visit Provider Podiatrist Foot & Ankle Surgery | DX: Q82.8 Other specified congenital malformations of skin (principal); I73.00 Raynaud's syndrome without gangrene | CPT/HCPCS: 17110 ==

== ENCOUNTER → 2022-04-16 14:31 | Outpatient (BNVA) | payer MEDICARE, SELFPAY | PROVIDERS: PCP Internal Medicine; Visit Provider Internal Medicine Cardiovascular Disease | DX: I48.20 Chronic atrial fibrillation, unspecified (principal); Z79.01 Long term (current) use of anticoagulants; I10 Essential (primary) hypertension; I34.0 Nonrheumatic mitral (valve) insufficiency; I36.1 Nonrheumatic tricuspid (valve) insufficiency; E78.00 Pure hypercholesterolemia, unspecified; Z87.891 Personal history of nicotine dependence | CPT/HCPCS: 99214 ==

== ENCOUNTER 2022-04-21 14:18 | Outpatient (CLI) | payer MEDICARE, SELFPAY ==
[2022-04-21 14:46] LABS: Basophils % 0.4 %; Eosinophils # 0.1 10^3/uL (0.0-0.8); Hematocrit 32.1 % (37.0-47.0); Lymphocytes # 2.3 10^3/uL (0.8-4.8); Lymphocytes % 32.1 %; Mean Corpuscular HGB Conc 31.2 g/dL (30.0-36.0); Mean Corpuscular Hemoglobin 31.4 pg (28.0-34.0); Mean Corpuscular Volume 100.9 fl (81-99); Mean Platelet Volume 9.8 fL (7.4-10.4); Monocytes # 0.6 10^3/uL (0.2-0.9); Monocytes % 7.8 %; Neutrophils # 4.11 10^3/uL (1.8-7.7); Neutrophils % 57.3 %; Nucleated Red Blood Cells % 0 %; Platelet Count 260 10^3/cmm (130-400); Red Blood Count 3.18 10^6/uL (4.1-5.3); Red Cell Distribution Width 13.1 % (12.1-15.1); White Blood Count 7.2 10^3/uL (4.0-10.0)
[2022-04-21 14:58] LABS: Erythrocyte Sedimentation Rate 4 mm/hr (0-15)
[2022-04-21 15:17] LABS: Alanine Aminotransferase 17 U/L (0-33); Albumin Level 4.6 g/dL (3.5-5.2); Alkaline Phosphatase 105 U/L (35-105); Anion Gap 14.4 (5-19); Aspartate Amino Transferase 24 U/L (0-32); Blood Urea Nitrogen 31 mg/dL (8-23); Calcium 9.7 mg/dL (8.5-10.5); Carbon Dioxide 25 mmol/L (22-29); Chloride 103 mmol/L (98-107); Globulin 2.4 g/dL (1.3-4.6); Glucose 125 mg/dL (65-115); Iron 58 ug/dL (37-145); Osmolality Calculated 294 mOsm/kg (285-295); Percent Saturation 24.4 % (20-50); Potassium 4.4 mmol/L (3.5-5.1); Sodium 138 mmol/L (136-145); Thyroid Stimulating Hormone 10.75 uIU/mL (0.27-4.20); Total Bilirubin 0.2 mg/dL (0.15-1.2); Total Iron Binding Capacity 237 mcg/dl; Unsaturated Iron Binding 179 ug/dL (112-347)
== END 2022-04-21 14:19 | disposition home or self-care (01) ==
PROVIDERS: PCP Internal Medicine; Visit Provider Internal Medicine
DX: R53.83 Other fatigue (principal)
CPT/HCPCS: 36415; 80053; 83540; 83550; 84443; 85025; 85651

== ENCOUNTER 2022-04-29 15:58 | Observation (INO) | payer MEDICARE, SELFPAY ==
[2022-04-29 16:00] VITALS: BP 192/66; PULSE 62; RESP 16; TEMP 36.8; O2SAT 96
--- NOTE | 2022-04-29 16:06 | ECG_ITS ---
[facility] Test Date: 2022-04-29 Pat Name: Jaylin Clemens Department: Room: Gender: Female Court Orderly: : 1935 Requested By: Denilson Swain Order Number: [id number] Rebeka MD: Jenny Gutiérrez M.D. Measurements Intervals [place] Rate: 62 P: 56 NH: 168 QRS: 5 QRSD: 80 T: 82 QT: 400 QTc: 409 Interpretive Statements SINUS RHYTHM WITH MARKED SINUS ARRHYTHMIA SEPTAL MYOCARDIAL INFARCTION , PROBABLY OLD [40+ ms Q WAVE IN V1/V2] Compared to ECG 09/07/2020 15:21:49 Myocardial infarct finding now present Electronically Signed On 04-29-2022 20:28:10 CDT by Jenny Gutiérrez M.D. [id number] f
[2022-04-29 16:35] LABS: Basophils % 0.6 %; Eosinophils # 0.2 10^3/uL (0.0-0.8); Eosinophils % 3.2 %; Hematocrit 27.7 % (37.0-47.0); Hemoglobin 8.6 g/dL (11.5-15.3); Lymphocytes # 2.2 10^3/uL (0.8-4.8); Lymphocytes % 32.5 %; Mean Corpuscular Hemoglobin 32.1 pg (28.0-34.0); Mean Corpuscular Volume 103.4 fl (81-99); Mean Platelet Volume 9.5 fL (7.4-10.4); Monocytes # 0.5 10^3/uL (0.2-0.9); Monocytes % 7.5 %; Neutrophils # 3.87 10^3/uL (1.8-7.7); Neutrophils % 56.1 %; Nucleated Red Blood Cells % 0 %; Platelet Count 237 10^3/cmm (130-400); Red Blood Count 2.68 10^6/uL (4.1-5.3); Red Cell Distribution Width 13.6 % (12.1-15.1); White Blood Count 6.9 10^3/uL (4.0-10.0)
[2022-04-29 17:06] LABS: INR 0.99 (0.8-1.2)
[2022-04-29 17:07] LABS: Partial Thromboplastin Time 31.4 SECONDS (23.9-36.7)
[2022-04-29 17:13] VITALS: BP 189/77; BP 189/79; BP 196/72; PULSE 61; PULSE 64
[2022-04-29 17:44] LABS: Alanine Aminotransferase 14 U/L (0-33); Albumin Level 3.8 g/dL (3.5-5.2); Alkaline Phosphatase 87 U/L (35-105); Anion Gap 12.8 (5-19); Aspartate Amino Transferase 19 U/L (0-32); Blood Urea Nitrogen 24 mg/dL (8-23); Calcium 9.3 mg/dL (8.5-10.5); Carbon Dioxide 26 mmol/L (22-29); Chloride 105 mmol/L (98-107); Globulin 2.4 g/dL (1.3-4.6); Glucose 95 mg/dL (65-115); Osmolality Calculated 292 mOsm/kg (285-295); Potassium 4.8 mmol/L (3.5-5.1); Sodium 139 mmol/L (136-145); Total Bilirubin 0.2 mg/dL (0.15-1.2); Total Protein 6.2 g/dL (6.6-8.7)
--- NOTE | 2022-04-29 17:50 | W.ED.DIZZY ---
HPI - Dizziness General: Chief Complaint: Dizziness Stated Complaint: dizzy Time Seen by Provider: 04/29/22 17:45 Source: patient Mode of arrival: ambulatory Limitations: no limitations History of Present Illness: HPI Narrative: 86-year-old female has had a history of GI bleeds in the past she states that today she has had some dizziness when she stands and is felt lightheaded she states over the last 2 to 3 days she has been having dark tarry stools. She states she was on Eliquis her PCP stopped it 4 days ago. She denies any pain denies any vomiting denies any worsening proving factors. Associated symptoms: Denies chest pain, chills or headache(s) Review of Systems Const: Denies: fever(s), chills, body aches or change in appetite Eyes: Denies: blurry vision or eye discomfort ENMT: Denies: throat pain or dental pain Card: Denies: chest pain Resp: Denies: dyspnea GI: Reports: melena : Denies: dysuria Musc: Denies: neck pain or back pain Skin/Breast: Denies: rash Neuro: Denies: headache(s) Psych: Denies: depression Kam/Lymph: Denies: easy bruising All/Imm: Denies: urticaria PFSH ED PFSH: Medical History Atrial fibrillation, chronic Chronic nasal congestion Essential hypertension Hyperlipidemia 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 Mitral valve regurgitation New onset a-fib Palpitation Recurrent depressive disorder Tricuspid regurgitation Surgical History History of colonoscopy History of hemiarthroplasty of left hip History of hemorrhoidectomy History of hysterectomy History of oophorectomy History of tonsillectomy and adenoidectomy Status post hip hemiarthroplasty Family History Other CAD (coronary artery disease) Diabetes Heart disease Hypertension Social History Smoking and tobacco status: never smoked Alcohol intake: current Alcohol intake frequency: few times a month Alcohol type: wine Household members: spouse Marital status: History of recent travel: No Physical Exam Const: COMMON NORMALS: no acute distress, patient oriented x3 and healthy appearing HENMT: COMMON NORMALS: normocephalic and atraumatic HEAD & SCALP: normocephalic and atraumatic Eye: COMMON NORMALS: Equal, round and reactive pupils present and EOMs intact bilaterally PUPIL: Yes Equal, round and reactive pupils present Neck/C-Spine: COMMON NORMALS: full ROM and supple Chest: COMMONS NORMALS: normal inspection of the chest and normal palpation of entire chest wall Resp: COMMON NORMALS: normal respiratory effort, No retractions, No use of accessory muscles and clear to auscultation bilaterally AUSCULTATION: clear to auscultation bilaterally Cardio: COMMON NORMALS: regular rate, regular rhythm and No murmurs present (Cardio) RATE: regular rate RHYTHM: regular rhythm GI: COMMON NORMALS: Normal to inspection, nondistended, normoactive bowel sounds present, Soft to palpation, non-tender and no masses PALPATION: Yes Soft to palpation : OTHER: hemoccult positive stool Extremity: COMMON NORMALS: normal to inspection and full ROM Neuro: COMMON NORMALS: patient oriented x3, moves all extremities and no focal motor deficits Psych: COMMON NORMALS: mental status grossly normal, Normal thought process present and cooperative THOUGHT PROCESS: Normal thought process present Skin: COMMON NORMALS: no rashes or lesions noted and no wounds GENERAL SKIN EXAM: no rashes or lesions noted Course Vital Signs: Vital signs: Vital Signs Temperature 98.2 F 04/29/22 16:00 Pulse Rate 61 04/29/22 17:13 Respiratory Rate 16 04/29/22 16:00 Blood Pressure 189/77 04/29/22 17:13 Pulse Oximetry 96 04/29/22 16:00 Oxygen Delivery Me thod 04/29/22 16:00 MDM - Dizziness Medical Decision Making Patient presents here with likely upper GI bleed has slight drop in her hemoglobin her Hemoccult here was positive did start her on Protonix spoke to hospitalist along with Dr. Kennedy and will admit. Lab Data : 04/29/22 16:28 04/29/22 16:28 Laboratory Results WBC 6.9 10^3/uL (4.0-10.0) 04/29/22 16:28 RBC 2.68 10^6/uL (4.1-5.3) L 04/29/22 16:28 Hgb 8.6 g/dL (11.5-15.3) L 04/29/22: Hct 27.7 % (37.0-47.0) L 04/29/22: MCV 103.4 fl (81-99) H 04/29/22: MCH 32.1 pg (28.0-34.0) 04/29/22: MCHC 31.0 g/dL (30.0-36.0) 04/29/22: RDW 13.6 % (12.1-15.1) 04/29/22: Plt Count 237 10^3/cmm (130-400) 04/29/22: MPV 9.5 fL (7.4-10.4) 04/29/22 Neut % (Auto) 56.1 % 04/29/22 Lymph % (Auto) 32.5 % 04/29/22 [place] % (Auto) 7.5 % 04/29/22: Eos % (Auto) 3.2 % 04/29/22 Baso % (Auto) 0.6 % 04/29/22 Neut # (Auto) 3.87 10^3/uL (1.8-7.7) 04/29/22 Lymph # (Auto) 2.2 10^3/uL (0.8-4.8) 04/29/22: [place] # (Auto) 0.5 10^3/uL (0.2-0.9) 04/29/22 Eos # (Auto) 0.2 10^3/uL (0.0-0.8) 04/29/22 Baso # (Auto) 0.0 10^3/uL (0.0-0.1) 04/29/22 Nucleated RBC % (auto) 0 % 04/29/22 Nucleated RBCs # 0.0 /100WBC 04/29/22 PT 13.40 SECONDS (12.1-14.9) 04/29/22: INR 0.99 (0.8-1.2) 04/29/22: APTT 31.4 SECONDS (23.9-36.7) 04/29/22 16:28 Sodium 139 mmol/L (136-145) 04/29/22 16:28 Potassium 4.8 mmol/L (3.5-5.1) 04/29/22 16:28 Chloride 105 mmol/L (98-107) 04/29/22 16:28 Carbon Dioxide 26 mmol/L (22-29) 04/29/22 16:28 Anion Gap 12.8 (5-19) 04/29/22 16:28 BUN 24 mg/dL (8-23) H 04/29/22 16:28 Creatinine 1.0 mg/dL (0.5-0.9) H 04/29/22 16:28 GFR Calculation Not Reportable 04/29/22 16:28 Glucose 95 mg/dL (65-115) 04/29/22 16:28 Calculated Osmolality 292 mOsm/kg (285-295) 04/29/22 16:28 Calcium 9.3 mg/dL (8.5-10.5) 04/29/22 16:28 Total Bilirubin 0.2 mg/dL (0.15-1.2) 04/29/22 16:28 AST 19 U/L (0-32) 04/29/22 16:28 ALT 14 U/L (0-33) 04/29/22 16:28 Alkaline Phosphatase 87 U/L (35-105) 04/29/22 16:28 Total Protein 6.2 g/dL (6.6-8.7) L 04/29/22 16:28 Albumin 3.8 g/dL (3.5-5.2) 04/29/22 16:28 Globulin 2.4 g/dL (1.3-4.6) 04/29/22 16:28 Discharge Plan Discharge Patient Disposition: Admitted As Inpatient Admit Provider: Edil Cornejo Clinical Impression: GI bleed Condition: Stable Coding Level of Care Code ED 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
[2022-04-29] MEDS: pantoprazole 40 mg SDV IVP ×2 (18:00→20:02)
--- NOTE | 2022-04-29 18:25 | XRR_ITS ---
PROCEDURE INFORMATION: Exam: XR Chest Exam date and time: 04/29/2022 6:31 PM Age: 86 years old Clinical indication: Condition or disease; Other: Dizziness; Additional info: Lightheadedness TECHNIQUE: Imaging protocol: Radiologic exam of the chest. Views: 1 view. COMPARISON: CR XR chest 1V [id number] 10/11/2016 4:33 AM FINDINGS: Lungs: Unremarkable. No consolidation. Pleural spaces: Unremarkable. No pleural effusion. No pneumothorax. Heart/Mediastinum: Unremarkable. No cardiomegaly. Bones/joints: Unremarkable. XR/XR chest 1V portable [id number] IMPRESSION: No acute findings.
--- NOTE | 2022-04-29 18:25 | ECG_ITS ---
[facility] Test Date: 2022-04-29 Pat Name: Jaylin Clemens Department: Room: 279 Gender: Female Insole Buffer: : 1935 Requested By: Edil Cornejo Order Number: [id number] Rebeka MD: Patt Zapata M.D. Measurements Intervals [place] Rate: 68 P: 80 SD: 207 QRS: 9 QRSD: 88 T: 68 QT: 386 QTc: 412 Interpretive Statements SINUS RHYTHM NONSPECIFIC T-WAVE ABNORMALITY Compared to ECG 04/29/2022 16:06:22 T-wave abnormality now present Sinus arrhythmia no longer present Myocardial infarct finding no longer present Electronically Signed On 04-30-2022 20:53:27 CDT by Patt Zapata M.D. [id number]
--- NOTE | 2022-04-29 18:26 | PM.HP ---
Providers/Chief Complaint Primary Care Provider: Lane Kennedy MD Chief Complaint: dizzy History of Present Illness Jaylin Clemens is a 86 year old female with a past medical history of hypothyroidism, hyperlipidemia, atrial fibrillation recently on Eliquis stopped due to concerns for black stools and anemia. Who presents [facility] due to lightheadedness and dizziness, and concerns for dark tarry stools. Patient tells me that she has had a history of GI bleed in the past, requiring 2 units PRBC, she had a EGD at that time without any significant findings. This is roughly 2 years ago when she was diagnosed with atrial fibrillation. She tells me that recently she has been feeling lightheaded and dizzy, and she saw Dr. Kennedy they checked her hemoglobin was 10, and as she was complaining of dark tarry stools, her Eliquis was stopped. She has not taken it in a few days, but continues to feel lightheaded and dizzy today her hemoglobin is 8 thus hospitalist was called for admission. Hemoccult was positive for stool in the emergency room. She denies bloody vomit, denies any liver abnormalities or any liver issues, denies any history of NSAID use, denies a history of H. pylori, denies a history of polyps Review of Systems Const: Denies: fever(s) Card: Denies: chest pain Resp: Denies: dyspnea GI: Denies: abdominal pain Neuro: Reports: dizziness; Denies: headache(s) Medications/Allergies Home Medications Medication Instructions Recorded Confirmed Last Taken Type acetaminophen 500 mg tablet 1,000 mg PO BID 09/07/20 04/21/22 01/02/22 History (Tylenol Extra Strength) vit C 250 mg-vit E 90 mg-zinc 40 1 tab PO BID 09/07/20 04/21/22 01/02/22 History mg-copper 1 [id number] capsule (PreserVision AREDS-2) calcium 1 tab PO DAILY 02/19/21 04/21/22 01/02/22 History apixaban 2.5 mg tablet (Eliquis) 2.5 mg PO BID #180 tabs 08/22/21 04/21/22 01/02/22 Rx simvastatin 10 mg tablet 10 mg PO DAILY #90 tabs 08/22/21 04/21/22 01/02/22 Rx nitroglycerin 0.4 mg sublingual 0.4 mg sublingual Q5M PRN chest 08/28/21 04/21/22 01/02/22 Rx tablet (Nitrostat) pain #25 tabs lisinopril 40 mg tablet 40 mg PO DAILY #90 tabs 11/12/21 04/21/22 01/02/22 Rx tolterodine 4 mg capsule,extended 4 mg PO Q24H #90 caps 12/11/21 04/21/22 01/02/22 Rx release 24 hr (Detrol LA) amiodarone 200 mg tablet 200 mg PO DAILY #138 tabs 12/31/21 04/21/22 01/02/22 Rx diltiazem HCl 180 mg capsule,24 180 mg PO DAILY #90 caps 01/07/22 04/21/22 Unknown Rx hr,extended release venlafaxine 37.5 mg See Rx Instructions .Route 02/10/22 04/21/22 Unknown Rx capsule,extended release 24 hr .COMPLEX #270 caps eplerenone 25 mg tablet (Inspra) 25 mg PO DAILY@12 #30 tabs 03/05/22 04/21/22 Unknown Rx pantoprazole 40 mg tablet,delayed 40 mg PO BID #60 tabs 04/01/22 04/21/22 Unknown Rx release fluticasone propionate 50 1 spray intranasal BID PRN 04/16/22 04/21/22 Unknown History mcg/actuation nasal spray,suspension levothyroxine 88 mcg tablet 88 mcg PO DAILY #90 tabs 04/21/22 04/21/22 Unknown Rx Allergies Allergy/AdvReac Type Severity Reaction Status Date / Time nifedipine Allergy ADR-Dizzine Verified 04/21/22 13:11 ss PFSH Acute PFSH: Medical History Atrial fibrillation, chronic Chronic nasal congestion Essential hypertension Hyperlipidemia 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 Mitral valve regurgitation New onset a-fib Palpitation Recurrent depressive disorder Tricuspid regurgitation Surgical History History of colonoscopy History of hemiarthroplasty of left hip History of hemorrhoidectomy History of hysterectomy History of oophorectomy History of tonsillectomy and adenoidectomy Status post hip hemiarthroplasty Family History Other CAD (coronary artery disease) Diabetes Heart disease Hypertension Social History Smoking and tobacco status: never smoked Alcohol intake: current Alcohol intake frequency: few times a month Alcohol type: wine Household members: spouse Marital status: History of recent travel: No Vitals/I&O/Wt Last Vital Signs Temp 98.2 F 04/29/22 16:00 Pulse 61 04/29/22 17:13 Resp 16 04/29/22 16:00 BP 189/77 04/29/22 17:13 Pulse Ox 96 04/29/22 16:00 O2 Del Method 04/29/22 16:00 Weight last 48 hrs Weight 58.967 kg Physical Exam Const: COMMON NORMALS: no acute distress and patient oriented x3 HENMT: COMMON NORMALS: normocephalic HEAD & SCALP: normocephalic Neck/C-Spine: COMMON NORMALS: no JVD Resp: COMMON NORMALS: normal respiratory effort, No retractions, No use of accessory muscles and clear to auscultation bilaterally AUSCULTATION: clear to auscultation bilaterally Cardio: COMMON NORMALS: no JVD, regular rate, regular rhythm, S1 normal heart sound present and S2 normal heart sound present RATE: regular rate RHYTHM: abnormal rhythm irregularly irregular HEART SOUNDS: S1 normal heart sound present and S2 normal heart sound present GI: COMMON NORMALS: Normal to inspection, nondistended, normoactive bowel sounds present, Soft to palpation, non-tender, No hepatosplenomegaly present, no masses and no bruits PALPATION: Yes Soft to palpation and Yes No hepatosplenomegaly present Extremity: COMMON NORMALS: capillary refill normal, no clubbing, cyanosis or edema, no calf tenderness and no pedal edema Neuro: COMMON NORMALS: patient oriented x3 Psych: COMMON NORMALS: mental status grossly normal Data : 04/29/22 16:28 04/29/22 16:28 A&P Assessment and plan (1) GI bleed: Plan GI bleed, likely slow GI bleed, likely upper GI bleed -Monitor hemodynamics closely -Monitor for bloody or black stools -Can move to [facility] bed with telemetry, as hemodynamics are stable, hemoglobin 8.6, no active bleeding -Protonix, Carafate -Gentle IV hydration -Clear liquids for now, n.p.o. midnight for EGD tomorrow morning by Dr. Kennedy -Avoid NSAIDs, -Continue to hold Eliquis, discussed risk and benefits to boisterously all questions answered agreed to proceed -Full code -SCDs for DVT prophylaxis For atrial fibrillation, currently in A. fib, rates well controlled, continue home medication Is a bit hypertensive, monitor blood pressures for now avoid over aggressive management with blood pressure due to concerns for volume depletion with GI bleed Attestations Medical Necessity Statement*: Patient requires hospitalization, inpatient, greater than 2 midnights, for GI bleed Coding Level of Care Code Acute Patient Relations Manager for [facility] Diagnoses GI bleed K92.2
--- NOTE | 2022-04-29 18:56 | PC.NURSE ---
report called to YULISSA Bob on Med Surg
--- NOTE | 2022-04-29 18:57 | PC.NURSE ---
Report given to YULISSA Barnhart
[2022-04-29 19:04] LABS: Troponin(5th) Baseline 19 ng/L (0-10)
[2022-04-29 19:07] LABS: Ferritin 364 ng/mL (15-150); Iron 46 ug/dL (37-145); Percent Saturation 20.3 % (20-50); Total Iron Binding Capacity 226 mcg/dl; Unsaturated Iron Binding 180 ug/dL (112-347)
[2022-04-29 19:14] VITALS: BP 190/80; PULSE 65; RESP 18; TEMP 36.2; O2SAT 98
[2022-04-29 19:15] LABS: Add Urine Microscopic? NO; Charge for UA Resulting for Rev
[2022-04-29 19:23] LABS: Vitamin B12 355 pg/mL (232-1245)
[2022-04-29 19:24] LABS: Folate Level 8.7 ng/mL (4.8-37.3)
[2022-04-29 19:32] LABS: Bilirubin Urine Neg (Negative); Blood Urine Neg (Negative); Glucose Urine UA Norm (Normal); Ketones Urine Negative (Negative); Leukocyte Esterase Urine Negative (Negative); Nitrate Urine Negative (Negative); Protein Urine Neg (Negative); Urine Appearance Clear (CLEAR); Urine Color Yellow (Yellow); Urobilinogen Urine Norm (Negative); pH Urine 6 (5-7)
[2022-04-29] MEDS: sodium chloride 0.9% 1,000 ML 75 ML IV (19:57)
[2022-04-29 20:00] VITALS: BP 190/80; PULSE 65; RESP 18; TEMP 36.2; O2SAT 98
[2022-04-29] MEDS: sucralfate 1 gm Tablet PO (20:01)
[2022-04-29 20:03] VITALS: O2SAT 96
[2022-04-29 20:24] LABS: Lipase 46 U/L (13-60)
[2022-04-29 21:26] LABS: Basophils % 0.3 %; Eosinophils # 0.2 10^3/uL (0.0-0.8); Eosinophils % 2.8 %; Hemoglobin 7.8 g/dL (11.5-15.3); Lymphocytes # 1.8 10^3/uL (0.8-4.8); Lymphocytes % 27.3 %; Mean Corpuscular HGB Conc 31.2 g/dL (30.0-36.0); Mean Corpuscular Volume 102.5 fl (81-99); Mean Platelet Volume 9.5 fL (7.4-10.4); Monocytes # 0.6 10^3/uL (0.2-0.9); Monocytes % 8.5 %; Neutrophils # 3.91 10^3/uL (1.8-7.7); Neutrophils % 60.8 %; Nucleated Red Blood Cells % 0 %; Platelet Count 206 10^3/cmm (130-400); Red Blood Count 2.44 10^6/uL (4.1-5.3); Red Cell Distribution Width 13.5 % (12.1-15.1); White Blood Count 6.4 10^3/uL (4.0-10.0)
[2022-04-29 21:42] LABS: Lactic Sepsis W/Reflex 1.1 mmol/L (0.5-2.2)
[2022-04-29 21:44] LABS: Troponin 5 2HR 17.99 ng/L (0-10)
[2022-04-29 21:51] LABS: Troponin 5 2HR Delta -1.01 ABS# (0-10)
[2022-04-29 22:00] VITALS: PULSE 60
[2022-04-30] VITALS (9 sets, daily range): BP systolic 157–193; BP diastolic 69–84; PULSE 57–96; RESP 16–22; TEMP 36.2–36.8; O2SAT 93–100
[2022-04-30 03:00] LABS: Basophils % 0.3 %; Eosinophils # 0.2 10^3/uL (0.0-0.8); Eosinophils % 3.3 %; Hemoglobin 7.9 g/dL (11.5-15.3); Lymphocytes # 1.6 10^3/uL (0.8-4.8); Lymphocytes % 23.4 %; Mean Corpuscular HGB Conc 30.4 g/dL (30.0-36.0); Mean Corpuscular Hemoglobin 31.3 pg (28.0-34.0); Mean Corpuscular Volume 103.2 fl (81-99); Mean Platelet Volume 9.7 fL (7.4-10.4); Monocytes # 0.6 10^3/uL (0.2-0.9); Monocytes % 8.4 %; Neutrophils # 4.43 10^3/uL (1.8-7.7); Neutrophils % 64.3 %; Nucleated Red Blood Cells % 0 %; Platelet Count 217 10^3/cmm (130-400); Red Blood Count 2.52 10^6/uL (4.1-5.3); Red Cell Distribution Width 13.5 % (12.1-15.1); White Blood Count 6.9 10^3/uL (4.0-10.0)
--- NOTE | 2022-04-30 03:01 | ECG_ITS ---
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 Measurements Intervals [place] Rate: 62 P: 67 OK: 178 QRS: 72 QRSD: 98 T: 68 QT: 428 QTc: 437 Interpretive Statements SINUS RHYTHM Nonspecific T wave changes SEPTAL MYOCARDIAL INFARCTION , OF INDETERMINATE AGE [40+ ms Q WAVE IN V1/V2] Compared to ECG 04/29/2022 20:38:43 Myocardial infarct finding now present T-wave abnormality no longer present Electronically Signed On 04-30-2022 20:58:05 CDT by Patt Zapata M.D. [id number]
[2022-04-30 03:17] LABS: Troponin 5 6HR 19.59 ng/L (0-10)
[2022-04-30 03:18] LABS: Anion Gap 13.2 (5-19); Blood Urea Nitrogen 21 mg/dL (8-23); Calcium 8.9 mg/dL (8.5-10.5); Carbon Dioxide 26 mmol/L (22-29); Chloride 104 mmol/L (98-107); Glucose 86 mg/dL (65-115); Magnesium 2.1 mg/dL (1.7-2.3); Osmolality Calculated 290 mOsm/kg (285-295); Phosphorus 3.2 mg/dL (2.5-4.5); Potassium 4.2 mmol/L (3.5-5.1); Sodium 139 mmol/L (136-145)
[2022-04-30 03:26] LABS: Troponin 5 6HR Delta 0.59 ng/L (0-12)
[2022-04-30] MEDS: venlafaxine ER (24HR) 37.5 mg Capsule 112.5 MG PO (05:46)
[2022-04-30] MEDS: pantoprazole 40 mg SDV IVP (06:17)
[2022-04-30] MEDS: dilTIAZem ER (24HR) 180 mg Capsule PO (09:42)
[2022-04-30] MEDS: lisinopril 20 mg Tablet 40 MG PO (09:42)
[2022-04-30] MEDS: sucralfate 1 gm Tablet PO (09:43)
[2022-04-30] MEDS: amiodarone 200 mg Tablet PO (09:43)
[2022-04-30] MEDS: levothyroxine 88 mcg Tablet PO (09:43)
--- NOTE | 2022-04-30 09:48 | PC.CHAP ---
Pastoral Care Encounter/Spiritual Assessment Type of Contact [] Declined visual supervisor visit [] Patient/Family/Request visit [] Outpatient visit [] Follow-up visit [] Physician referral [] Code/Alert [x] Routine visit [] Staff referral [] Actively dying [] Patient sleeping [] Family support [] [] Out of room [] Palliative care [] [x] Receiving care in room [] Pre-surgical visit [] Trauma [] Long length of stay [] ICU visit [] Other: Relational/Emotional Strength [] Patient feels connected with others/family/visitors/staff [] Distress [] Loneliness/isolation [] Abandonment Spirituality of Patient [] Person of Meghana [] Attends Mormonism of their Meghana [] Believes in Prayer [] Reads Bible or Voodoo materials [] There are Spiritual issues to be addressed Triage Rn Interventions [] Prayer [] Active listening [] Non-anxious presence [] Spiritual/emotional support [] Crisis/trauma care [] Spiritual counseling [] Bereavement support [] Provided bereavement packet [] Provided Bible/devotional materials [] Provided toy/stuffed animal, coloring book to patient or family member [] Provided Communion [] Anointing/Ward [] Salvation [] Completed spiritual assessment [] Other: Impact on Illness or Injury [] Angry [] Fearful [] Anxious [] Often cries [] Exhaustion [] Unable to work [] Unable to attend sikhism [] Unable to walk/stand [] Unable to read [] Unable to drive [] Unable to eat/drink [] Unable to sleep [] Unable to be with family [] Patient intubated [] Other: Summary Time spent with patient
[2022-04-30 11:00] LABS: Basophils % 0.3 %; Eosinophils # 0.1 10^3/uL (0.0-0.8); Eosinophils % 2.3 %; Hematocrit 26.2 % (37.0-47.0); Hemoglobin 8.2 g/dL (11.5-15.3); Lymphocytes # 1.4 10^3/uL (0.8-4.8); Lymphocytes % 22.3 %; Mean Corpuscular HGB Conc 31.3 g/dL (30.0-36.0); Mean Corpuscular Hemoglobin 31.8 pg (28.0-34.0); Mean Corpuscular Volume 101.6 fl (81-99); Mean Platelet Volume 9.4 fL (7.4-10.4); Monocytes # 0.5 10^3/uL (0.2-0.9); Monocytes % 7.8 %; Neutrophils # 4.12 10^3/uL (1.8-7.7); Neutrophils % 67.1 %; Nucleated Red Blood Cells % 0 %; Platelet Count 214 10^3/cmm (130-400); Red Blood Count 2.58 10^6/uL (4.1-5.3); Red Cell Distribution Width 13.6 % (12.1-15.1); White Blood Count 6.1 10^3/uL (4.0-10.0)
--- NOTE | 2022-04-30 12:09 | P.HP_ITS ---
Same Day Surgery H&P Indication for Procedure/HPI DATE OF PROCEDURE: April 30, 2022 CHIEF COMPLAINT/INDICATIONFOR SURGICAL PROCEDURE: UGI bleed PREOP DIAGNOSIS: DBL PLANNED PROCEDURE: Operation Date: 04/30/22 12:00 Proposed Procedures p EGD(Not Applicable) - Lane Kennedy MD Medications/Allergies* Home Medications Medication Instructions Recorded Confirmed Type acetaminophen 500 mg tablet 1,000 mg PO BID 09/07/20 04/29/22 History (Tylenol Extra Strength) vit C 250 mg-vit E 90 mg-zinc 40 1 tab PO BID 09/07/20 04/29/22 History mg-copper 1 [id number] capsule (PreserVision AREDS-2) fluticasone propionate 50 1 spray intranasal BID PRN Nasal 04/16/22 04/29/22 History mcg/actuation nasal Congestion spray,suspension calcium carbonate 500 mg calcium 500 mg PO DAILY 04/29/22 04/29/22 History (1,250 mg) tablet eplerenone 25 mg tablet (Inspra) 25 mg PO QPM 04/29/22 04/29/22 History tolterodine 4 mg capsule,extended 4 mg PO QPM 04/29/22 04/29/22 History release 24 hr (Detrol LA) Allergies/Adverse Reactions Allergy/AdvReac Type Severity Reaction Status Date / Time nifedipine Allergy ADR-Dizzine Verified 04/21/22 13:11 ss Current Medications: Generic Name Dose Route Start Last Admin Trade Name Freq PRN Reason Stop Dose Admin Amiodarone HCl 200 mg 04/30/22 09:00 04/30/22 09:43 Amiodarone 200 Mg Tablet PO 200 mg DAILY ERIKA Administration Atorvastatin Calcium 20 mg 04/30/22 09:00 04/30/22 10:39 Atorvastatin 40 Mg Tablet PO Not Given DAILY ERIKA Diltiazem HCl 180 mg 04/30/22 09:00 04/30/22 09:42 Diltiazem Er (24hr) 180 Mg Capsule PO 180 mg DAILY ERIKA Administration Sodium Chloride 1,000 mls @ 75 mls/hr 04/29/22 19:14 04/29/22 19:57 Sodium Chloride 0.9% IV 75 mls/hr .[id number] ERIKA Administration Levothyroxine Sodium 88 mcg 04/30/22 09:00 04/30/22 09:43 Levothyroxine 88 Mcg Tablet PO 88 mcg DAILY ERIKA Administration Lisinopril 40 mg 04/30/22 09:00 04/30/22 09:42 Lisinopril 20 Mg Tablet PO 40 mg DAILY ERIKA Administration Pantoprazole Sodium 40 mg 04/29/22 19:14 04/30/22 06:17 Pantoprazole 40 Mg Sdv IVP 40 mg Q12H ERIKA Administration Sucralfate 1 gm 04/29/22 20:00 04/30/22 09:43 Sucralfate 1 Gm Tablet PO 1 gm Q12H ERIKA Administration Venlafaxine HCl 112.5 mg 04/30/22 06:00 04/30/22 05:46 Venlafaxine Er (24hr) 37.5 Mg Capsule PO 112.5 mg QAM ERIKA Administration Pertinent History/Comorbid Conditions* Medical History (Updated 04/29/22 @ 18:46 by Naila Lowery MD) Atrial fibrillation, chronic Chronic nasal congestion Essential hypertension Hyperlipidemia 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 Mitral valve regurgitation New onset a-fib Palpitation Recurrent depressive disorder Tricuspid regurgitation Surgical History (Updated 11/17/19 @ 10:[address] MD) History of colonoscopy History of hemiarthroplasty of left hip History of hemorrhoidectomy History of hysterectomy History of oophorectomy History of tonsillectomy and adenoidectomy Status post hip hemiarthroplasty Family History (Updated 07/04/20 @ 16:15 by Sandy Pryor RN) Diabetes CAD (coronary artery disease) Heart disease Hypertension Social History Smoking and tobacco status: never smoked Alcohol intake: current Alcohol intake frequency: few times a month Alcohol type: wine Household members: spouse Marital status: History of recent travel: No Pertinent Exam Findings alert, oriented x 3, clear to auscultation bilaterally, regular rate & rhythm, operative site marked and procedure specific exam findings Recommendations Surgery/Procedure today Coding Level of Care Code Acute Business Systems Consultant for [facility]
--- NOTE | 2022-04-30 12:16 | ANES.PREANE2 ---
Pre-Anesthetic Assessment Height/Weight: Height 1.65 m Weight 58.967 kg Temp Pulse Resp BP Pulse Ox O2 Del Method 98.1 F 68 20 H 178/79 93 04/30/22 11:34 04/30/22 11:34 04/30/22 11:34 04/30/22 11:34 04/30/22 11:34 04/30/22 11:34 Preop Diagnosis: DBL Operation Date: 04/30/22 12:00 Proposed Procedures p EGD(Not Applicable) - Lane Kennedy MD Was Beta Laura taken within 24 hours: N/A Was Clonidine taken within 24 hours: N/A Social No alcohol and No tobacco Airway Submandibular: within normal limits Cervical ROM: within normal limits Mallampati: Class II Dentition: full History/ROS No significant history except as noted and No significant complaints CV/HEM Atrial Fibrillation and Murmur None reported Hepatic None reported GI Gastroesophageal Reflux Disease Metabolic Thyroid Disease Musc/skel None reported Neuropsych None reported Anesthetic Plan ASA status: 2 Anesthesia: MAC Risk of > 500 ml blood loss (7ml/kg in children): No Medications/Allergies Home Medications Medication Instructions Recorded Confirmed Last Taken Type acetaminophen 500 mg tablet 1,000 mg PO BID 09/07/20 04/29/22 04/29/22 History (Tylenol Extra Strength) vit C 250 mg-vit E 90 mg-zinc 40 1 tab PO BID 09/07/20 04/29/22 04/29/22 History mg-copper 1 [id number]-[id number] capsule (PreserVision AREDS-2) apixaban 2.5 mg tablet (Eliquis) 2.5 mg PO BID #180 tabs 08/22/21 04/29/22 04/26/22 Rx simvastatin 10 mg tablet 10 mg PO DAILY #90 tabs 08/22/21 04/29/22 04/28/22 Rx nitroglycerin 0.4 mg sublingual 0.4 mg sublingual Q5M PRN chest 08/28/21 04/29/22 01/02/22 Rx tablet (Nitrostat) pain #25 tabs lisinopril 40 mg tablet 40 mg PO DAILY #90 tabs 11/12/21 04/29/22 04/29/22 Rx amiodarone 200 mg tablet 200 mg PO DAILY #138 tabs 06/02/1404/29/22 04/29/22 Rx diltiazem HCl 180 mg capsule,24 180 mg PO DAILY #90 caps 01/07/22 04/29/22 04/29/22 Rx hr,extended release venlafaxine 37.5 mg See Rx Instructions .Route 02/10/22 04/29/22 04/29/22 Rx capsule,extended release 24 hr .COMPLEX #270 caps pantoprazole 40 mg tablet,delayed 40 mg PO BID #60 tabs 04/01/22 04/29/22 04/29/22 Rx release fluticasone propionate 50 1 spray intranasal BID PRN Nasal 04/16/22 04/29/22 Unknown History mcg/actuation nasal Congestion spray,suspension levothyroxine 88 mcg tablet 88 mcg PO DAILY #90 tabs 04/21/22 04/29/22 04/29/22 Rx calcium carbonate 500 mg calcium 500 mg PO DAILY 04/29/22 04/29/22 04/29/22 History (1,250 mg) tablet eplerenone 25 mg tablet (Inspra) 25 mg PO QPM 04/29/22 04/29/22 04/28/22 History tolterodine 4 mg capsule,extended 4 mg PO QPM 04/29/22 04/29/22 04/28/22 History release 24 hr (Detrol LA) Allergies Allergy/AdvReac Type Severity Reaction Status Date / Time nifedipine Allergy ADR-Dizzine Verified 04/21/22 13:11 ss Current Medications Generic Name Dose Route Start Last Admin Trade Name Freq PRN Reason Stop Dose Admin Amiodarone HCl 200 mg 04/30/22 09:00 04/30/22 09:43 Amiodarone 200 Mg Tablet PO 200 mg DAILY ERIKA Administration Atorvastatin Calcium 20 mg 04/30/22 09:00 04/30/22 10:39 Atorvastatin 40 Mg Tablet PO Not Given DAILY ERIKA Diltiazem HCl 180 mg 04/30/22 09:00 04/30/22 09:42 Diltiazem Er (24hr) 180 Mg Capsule PO 180 mg DAILY ERIKA Administration Sodium Chloride 1,000 mls @ 75 mls/hr 04/29/22 19:14 04/29/22 19:57 Sodium Chloride 0.9% IV 75 mls/hr .[id number] ERIKA Administration Levothyroxine Sodium 88 mcg 04/30/22 09:00 04/30/22 09:43 Levothyroxine 88 Mcg Tablet PO 88 mcg DAILY ERIKA Administration Lisinopril 40 mg 04/30/22 09:00 04/30/22 09:42 Lisinopril 20 Mg Tablet PO 40 mg DAILY ERIKA Administration Pantoprazole Sodium 40 mg 04/29/22 19:14 04/30/22 06:17 Pantoprazole 40 Mg Sdv IVP 40 mg Q12H ERIKA Administration Sucralfate 1 gm 04/29/22 20:00 04/30/22 09:43 Sucralfate 1 Gm Tablet PO 1 gm Q12H ERIKA Administration Venlafaxine HCl 112.5 mg 04/30/22 06:00 04/30/22 05:46 Venlafaxine Er (24hr) 37.5 Mg Capsule PO 112.5 mg QAM ERIKA Administration PFSH Anesthesia Medical History Atrial fibrillation, chronic Chronic nasal congestion Essential hypertension Hyperlipidemia 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 Mitral valve regurgitation New onset a-fib Palpitation Recurrent depressive disorder Tricuspid regurgitation Surgical History History of colonoscopy History of hemiarthroplasty of left hip History of hemorrhoidectomy History of hysterectomy History of oophorectomy History of tonsillectomy and adenoidectomy Status post hip hemiarthroplasty Family History Other CAD (coronary artery disease) Diabetes Heart disease Hypertension Social History Smoking and tobacco status: never smoked Alcohol intake: current Alcohol intake frequency: few times a month Alcohol type: wine Household members: spouse Marital status: History of recent travel: No Data Anesthesia : 04/30/22 10:50 04/30/22 01:37 Short CBC 04/29/22 04/29/22 04/30/22 Range/Units 16:28 21:13 01:37 WBC 6.9 6.4 6.9 (4.0-10.0) 10^3/uL Hgb 8.6 L 7.8 L 7.9 L (11.5-15.3) g/dL Hct 27.7 L 25.0 L 26.0 L (37.0-47.0) % MCV 103.4 H 102.5 H 103.2 H (81-99) fl Plt Count 237 206 217 (130-400) 10^3/cmm Neut % (Auto) 56.1 60.8 64.3 % Neut # (Auto) 3.87 3.91 4.43 (1.8-7.7) 10^3/uL 04/30/22 Range/Units 10:50 WBC 6.1 (4.0-10.0) 10^3/uL Hgb 8.2 L (11.5-15.3) g/dL Hct 26.2 L (37.0-47.0) % MCV 101.6 H (81-99) fl Plt Count 214 (130-400) 10^3/cmm Neut % (Auto) 67.1 % Neut # (Auto) 4.12 (1.8-7.7) 10^3/uL BMP 04/29/22 04/30/22 16:28 01:37 Sodium 139 139 Potassium 4.8 4.2 Chloride 105 104 Carbon Dioxide 26 26 BUN 24 H 21 Creatinine 1.0 H 0.9 Glucose 95 86 Calcium 9.3 8.9 Cardiac Enzymes 04/29/22 04/29/22 04/30/22 Range/Units 16:28 21:13 01:37 Troponin T Baseline 19 H (0-10) ng/L Troponin T 120 Minute 17.99 H (0-10) ng/L Delta Troponin T -1.01 L (0-10) ABS# Troponin T Hi Sens 6Hr 19.59 H (0-10) ng/L Troponin T Hi Sens 6Hr Delta 0.59 (0-12) ng/L Liver Function 04/29/22 Range/Units 16:28 Total Bilirubin 0.2 (0.15-1.2) mg/dL AST 19 (0-32) U/L ALT 14 (0-33) U/L Alkaline Phosphatase 87 (35-105) U/L Albumin 3.8 (3.5-5.2) g/dL Urine 04/29/22 Range/Units 18:52 Urine Color Yellow (Yellow) Urine Appearance Clear (CLEAR) Urine pH 6 (5-7) Ur Specific [place] 1.010 (1.005-1.030) Urine Protein Neg (Negative) Urine Glucose (UA) Norm (Normal) Urine Ketones Negative (Negative) Urine Nitrate Negative (Negative) Urine Bilirubin Neg (Negative) Ur Leukocyte Esterase Negative (Negative) Coags 04/29/22 16:28 PT 13.40 INR 0.99 APTT 31.4 Cardiac Studies: Echocardiogram 03/25/22 Echocardiogram Ultrasound 09/19/19 Cardiac Event Monitor 07/08/21
--- NOTE | 2022-04-30 13:37 | ANE.PACU2 ---
Inpatient post-anesthesia follow up: Airway intact: Yes Vital signs: Temperature 97.2 F Pulse Rate 59 Respiratory Rate 18 Blood Pressure 171/75 Pulse Oximetry 98 Oxygen Delivery Me thod Room Air Fraction of Inspir ed Oxygen Hydration adequate: Yes Nausea and vomiting: No Pain level: 1 Mental status: Baseline
--- NOTE | 2022-04-30 14:26 | PM.DCS ---
Discharge Providers Date of Admission: 04/29/22 19:14 Date of Discharge: April 30, 2022 Attending Provider at Admission: Edil Cornejo MD Attending Provider at Discharge: Edil Cornejo MD Primary Care Provider: Lane Kennedy MD Diagnoses at Discharge Discharge Diagnosis (1) GI bleed: Status: Acute Reason for Visit Reason for Visit: dizzy Hospital Course Hospital Course Jaylin Clemens is a 86 year old female with a past medical history of hypothyroidism, hyperlipidemia, atrial fibrillation recently on Eliquis stopped due to concerns for black stools and anemia.? Who presents [facility] due to lightheadedness and dizziness, and concerns for dark tarry stools. Patient presented to [facility] for concerns for GI bleed, with anemia, hemoglobin is low at 7.8, no hemodynamic compromise, no active bleeding during hospitalization, underwent EGD by Dr. Kennedy, no significant findings, no significant evidence of iron deficiency anemia or macrocytic anemia. I had a detailed discussion with patient, and family at bedside, she takes Eliquis for atrial fibrillation, to decrease her risk of strokes. I in detail discussed with her that currently we are between a rock and a hard place and is a really difficult decision on the one has she has an increased risk of strokes, but currently she is suffering one of the consequences of anticoagulation and that anemia and dark tarry stools. Currently I feel that her risk of GI bleed and anemia and complications associated is higher than her risk of a stroke. However she does have a risk of stroke nonetheless. Thus, for now I would advise holding anticoagulation, and monitoring her hemoglobin, but we would have to accept her risk of a stroke. What I would advise for this time is to stop anticoagulation indefinitely and to reassess after further studies are done. Dr. Kennedy will refer her to GI in [place] for a capsule endoscopy. However it is certainly her decision in their shared decision making. She tells me that she is 86 and she is turning 87 in a month, she is let a good life, and she does not want to suffer the consequences of anemia, she tells me that her tiredness has her have left energy to garden which she loves, and she wants to emphasize her quality of life. Thus after discussing the risks and benefits of anticoagulation, she and her family voiced understanding, all questions answered, for now we will discontinue anticoagulation. She will be referred to [facility] for a capsule endoscopy. We will have to monitor hemoglobin as outpatient, patient was advised that if she were to have any strokelike symptoms call 911 immediately Physical Exam Const: COMMON NORMALS: no acute distress and patient oriented x3 Resp: COMMON NORMALS: normal respiratory effort, No retractions, No use of accessory muscles and clear to auscultation bilaterally AUSCULTATION: clear to auscultation bilaterally Cardio: COMMON NORMALS: regular rate, regular rhythm, S1 normal heart sound present and S2 normal heart sound present RATE: regular rate RHYTHM: regular rhythm HEART SOUNDS: S1 normal heart sound present and S2 normal heart sound present GI: COMMON NORMALS: Normal to inspection, nondistended, normoactive bowel sounds present and non-tender Extremity: COMMON NORMALS: no pedal edema Neuro: COMMON NORMALS: patient oriented x3 Psych: COMMON NORMALS: mental status grossly normal Discharge Data Studies Completed and Pending Completed Studies During Hospitalization Category Date Time Status XR chest 1V portable [id number] Stat Exams 04/29/22 18:25 Completed Pending at discharge Category Date Time Status CBC Auto Diff [Complete Blood Count w/Auto] Stat Lab 04/30/22 16:00 Ordered Radiology Impressions Chest X-Ray 04/29/22 18:25 IMPRESSION: No acute findings. Laboratory Results WBC 6.1 10^3/uL (4.0-10.0) 04/30/22 10:50 RBC 2.58 10^6/uL (4.1-5.3) L 04/30/22 10:50 Hgb 8.2 g/dL (11.5-15.3) L 04/30/22 10:50 Hct 26.2 % (37.0-47.0) L 04/30/22 10:50 MCV 101.6 fl (81-99) H 04/30/22 10:50 MCH 31.8 pg (28.0-34.0) 04/30/22 10:50 MCHC 31.3 g/dL (30.0-36.0) 04/30/22 10:50 RDW 13.6 % (12.1-15.1) 04/30/22 10:50 Plt Count 214 10^3/cmm (130-400) 04/30/22 10:50 MPV 9.4 fL (7.4-10.4) 04/30/22 10:50 Neut % (Auto) 67.1 % 04/30/22 10:50 Lymph % (Auto) 22.3 % 04/30/22 10:50 Mobile % (Auto) 7.8 % 04/30/22 10:50 Eos % (Auto) 2.3 % 04/30/22 10:50 Baso % (Auto) 0.3 % 04/30/22 10:50 Neut # (Auto) 4.12 10^3/uL (1.8-7.7) 04/30/22 10:50 Lymph # (Auto) 1.4 10^3/uL (0.8-4.8) 04/30/22 10:50 Mobile # (Auto) 0.5 10^3/uL (0.2-0.9) 04/30/22 10:50 Eos # (Auto) 0.1 10^3/uL (0.0-0.8) 04/30/22 10:50 Baso # (Auto) 0.0 10^3/uL (0.0-0.1) 04/30/22 10:50 Nucleated RBC % (auto) 0 % 04/30/22 10:50 Nucleated RBCs # 0.0 /100WBC 04/30/22 10:50 PT 13.40 SECONDS (12.1-14.9) 04/29/22 16:28 INR 0.99 (0.8-1.2) 04/29/22 16:28 APTT 31.4 SECONDS (23.9-36.7) 04/29/22 16:28 Sodium 139 mmol/L (136-145) 04/30/22 01:37 Potassium 4.2 mmol/L (3.5-5.1) 04/30/22 01:37 Chloride 104 mmol/L (98-107) 04/30/22 01:37 Carbon Dioxide 26 mmol/L (22-29) 04/30/22 01:37 Anion Gap 13.2 (5-19) 04/30/22 01:37 BUN 21 mg/dL (8-23) 04/30/22 01:37 Creatinine 0.9 mg/dL (0.5-0.9) 04/30/22 01:37 GFR Calculation Not Reportable 04/30/22 01:37 Glucose 86 mg/dL (65-115) 04/30/22 01:37 Calculated Osmolality 290 mOsm/kg (285-295) 04/30/22 01:37 Lactic Acid 1.1 mmol/L (0.5-2.2) 04/29/22 16:28 Calcium 8.9 mg/dL (8.5-10.5) 04/30/22 01:37 Phosphorus 3.2 mg/dL (2.5-4.5) 04/30/22 01:37 Magnesium 2.1 mg/dL (1.7-2.3) 04/30/22 01:37 Iron 46 ug/dL (37-145) 04/29/22 16:28 TIBC 226 mcg/dl 04/29/22 16:28 % Saturation 20.3 % (20-50) 04/29/22 16:28 Unsat Iron Binding 180 ug/dL (112-347) 04/29/22 16:28 Ferritin 364 ng/mL (15-150) H 04/29/22 16:28 Total Bilirubin 0.2 mg/dL (0.15-1.2) 04/29/22 16:28 AST 19 U/L (0-32) 04/29/22 16:28 ALT 14 U/L (0-33) 04/29/22 16:28 Alkaline Phosphatase 87 U/L (35-105) 04/29/22 16:28 Troponin T Baseline 19 ng/L (0-10) H 04/29/22 16:28 Troponin T 120 Minute 17.99 ng/L (0-10) H 04/29/22 21:13 Delta Troponin T -1.01 ABS# (0-10) L 04/29/22 21:13 Troponin T Hi Sens 6Hr 19.59 ng/L (0-10) H 04/30/22 01:37 Troponin T Hi Sens 6Hr Delta 0.59 ng/L (0-12) 04/30/22 01:37 Total Protein 6.2 g/dL (6.6-8.7) L 04/29/22 16:28 Albumin 3.8 g/dL (3.5-5.2) 04/29/22 16:28 Globulin 2.4 g/dL (1.3-4.6) 04/29/22 16:28 Lipase 46 U/L (13-60) 04/29/22 18:31 Vitamin B12 355 pg/mL (232-1245) 04/29/22 16:28 Folate 8.7 ng/mL (4.8-37.3) 04/29/22 16:28 Urine Color Yellow (Yellow) 04/29/22 18:52 Urine Appearance Clear (CLEAR) 04/29/22 18:52 Urine pH 6 (5-7) 04/29/22 18:52 Ur Specific [place] 1.010 (1.005-1.030) 04/29/22 18:52 Urine Protein Neg (Negative) 04/29/22 18:52 Urine Glucose (UA) Norm (Normal) 04/29/22 18:52 Urine Ketones Negative (Negative) 04/29/22 18:52 Urine Blood Neg (Negative) 04/29/22 18:52 Urine Nitrate Negative (Negative) 04/29/22 18:52 Urine Bilirubin Neg (Negative) 04/29/22 18:52 Urine Urobilinogen Norm mg/dL (Negative) 04/29/22 18:52 Ur Leukocyte Esterase Negative (Negative) 04/29/22 18:52 Vitals Last Vital Signs Temp 97.2 F L 04/30/22 12:41 Pulse 59 L 04/30/22 12:55 Resp 18 04/30/22 12:55 BP 171/75 04/30/22 12:55 Pulse Ox 98 04/30/22 12:55 O2 Del Method 04/30/22 12:55 O2 Flow Rate 2 04/30/22 12:41 Discharge Plan Discharge Patient Disposition: Home Condition: Stable Prescriptions: Continued lisinopril 40 mg tablet 40 mg PO DAILY Qty: 90 3RF simvastatin 10 mg tablet 10 mg PO DAILY Qty: 90 3RF fluticasone propionate 50 mcg/actuation spray,suspension 1 spray intranasal BID PRN (Reason: Nasal Congestion) Rx Instructions: administer into each nostril levothyroxine 88 mcg tablet 88 mcg PO DAILY Qty: 90 1RF nitroglycerin [Nitrostat] 0.4 mg tablet, sublingual 0.4 mg sublingual Q5M PRN (Reason: chest pain) Qty: 25 3RF Rx Instructions: do not exceed 3 doses per episode amiodarone 200 mg tablet 200 mg PO DAILY Qty: 138 3RF diltiazem HCl 180 mg capsule,extended release 24 hr 180 mg PO DAILY Qty: 90 3RF venlafaxine 37.5 mg capsule,extended release 24hr See Rx Instructions .ROUTE .COMPLEX Qty: 270 1RF Dose Instruction: TAKE 3 CAPSULES BY MOUTH DAILY AT 6AM Rx Instructions: TAKE 3 CAPSULES BY MOUTH DAILY AT 6AM pantoprazole 40 mg tablet,delayed release (DR/EC) 40 mg PO BID Qty: 60 3RF PreserVision AREDS-2 [id number] ng-nbmd-vs-mg Capsule 1 tab PO BID acetaminophen [Tylenol Extra Strength] 500 mg Tablet 1,000 mg PO BID Detrol LA 4 mg capsule,extended release 24hr 4 mg PO QPM Calcium 500 500 mg calcium (1,250 mg) Tablet 500 mg PO DAILY Inspra 25 mg tablet 25 mg PO QPM Discontinued Eliquis 2.5 mg tablet 2.5 mg PO BID Qty: 180 3RF Discharge Orders: Discharge Order (Routine); Ordered 04/30/22 Ordered By: Edil Cornejo Referrals: Lane Kennedy MD [Primary Care Provider] - 05/08/22 9:30 am Discharge Diet: Cardiac Discharge Activity: Resume usual activity Patient Instructions: Gastrointestinal Bleeding (GEN), GI Discharge Instructions, Opioid Safety Activity Restrictions/Additional Instructions: - If you develop bloody or black stools please go to the emergency room Discharge Attestations Time Spent in Discharge Care*: less than 30 min Quality Metrics Clinical Quality Measures [ No reported AMI, CVA or VTE this stay] Coding Level of Care Code Acute [facility] note Diagnoses GI bleed K92.2
[2022-04-30 16:22] LABS: Basophils % 0.3 %; Eosinophils # 0.1 10^3/uL (0.0-0.8); Eosinophils % 1.2 %; Hematocrit 26.2 % (37.0-47.0); Hemoglobin 8.1 g/dL (11.5-15.3); Lymphocytes # 1.5 10^3/uL (0.8-4.8); Lymphocytes % 14.6 %; Mean Corpuscular HGB Conc 30.9 g/dL (30.0-36.0); Mean Corpuscular Hemoglobin 31.4 pg (28.0-34.0); Mean Corpuscular Volume 101.6 fl (81-99); Mean Platelet Volume 9.5 fL (7.4-10.4); Monocytes # 0.9 10^3/uL (0.2-0.9); Monocytes % 8.2 %; Neutrophils # 7.85 10^3/uL (1.8-7.7); Neutrophils % 75.4 %; Nucleated Red Blood Cells % 0 %; Platelet Count 239 10^3/cmm (130-400); Red Blood Count 2.58 10^6/uL (4.1-5.3); Red Cell Distribution Width 13.6 % (12.1-15.1); White Blood Count 10.4 10^3/uL (4.0-10.0)
== END 2022-04-30 16:59 | disposition home or self-care (01) ==
LOC: ER 17:53 → MEDSURG 18:46
PROVIDERS: Family Medicine; Admitting Provider Family Medicine; Emergency Provider Emergency Medicine; PCP Internal Medicine; Visit Provider Family Medicine
PROC: 0DJ08ZZ Inspection of Upper Intestinal Tract, Via Natural or Artificial Opening Endoscopic (ICD-10-PCS; CPT 43235; principal; 2022-04-30 12:00)
DX: K92.2 Gastrointestinal hemorrhage, unspecified (principal); E03.9 Hypothyroidism, unspecified; E78.5 Hyperlipidemia, unspecified; I48.91 Unspecified atrial fibrillation; Z79.01 Long term (current) use of anticoagulants; K21.9 Gastro-esophageal reflux disease without esophagitis; I48.20 Chronic atrial fibrillation, unspecified
CPT/HCPCS: 36415; 43235; 71045; 80048; 80053; 81003; 82607; 82728; 82746; 83540; 83550; 83605; 83690; 83735; 84100; 84484; 85025; 85610; 85730; 93005; 94664; 96374; 99285; C9113; G0378; J2704; J7030

== ENCOUNTER → 2022-05-22 15:51 | Outpatient (BNVA) | payer MEDICARE, SELFPAY | PROVIDERS: PCP Internal Medicine; Visit Provider Internal Medicine | DX: Z09 Encounter for follow-up examination after completed treatment for conditions other than malignant neoplasm (principal); D50.0 Iron deficiency anemia secondary to blood loss (chronic); K90.9 Intestinal malabsorption, unspecified; I10 Essential (primary) hypertension; R53.83 Other fatigue; I48.20 Chronic atrial fibrillation, unspecified; E03.8 Other specified hypothyroidism; E06.3 Autoimmune thyroiditis; E78.00 Pure hypercholesterolemia, unspecified; I34.0 Nonrheumatic mitral (valve) insufficiency; I36.1 Nonrheumatic tricuspid (valve) insufficiency | CPT/HCPCS: 80053; 82270; 83550; 84439; 84443; 84481; 85025 ==

== ENCOUNTER → 2022-08-14 13:44 | Outpatient (BNVA) | payer MEDICARE, SELFPAY | PROVIDERS: PCP Internal Medicine; Visit Provider Internal Medicine Cardiovascular Disease | DX: R06.02 Shortness of breath (principal); I48.20 Chronic atrial fibrillation, unspecified; E78.00 Pure hypercholesterolemia, unspecified; I10 Essential (primary) hypertension; I34.0 Nonrheumatic mitral (valve) insufficiency | CPT/HCPCS: 93005; 99214; Q3014 ==

== ENCOUNTER 2022-09-24 06:37 | Outpatient (CLI) | payer MEDICARE, SELFPAY ==
--- NOTE | 2022-09-24 | ECG_ITS ---
[facility] Test Date: 2022-09-24 Pat Name: Jaylin Clemens Department: Room: Gender: Female Crossing Guard: : 1935 Requested By: Jenny Gutiérrez Order Number: [id number] Rebeka MD: Patt Zapata M.D. Interpretive Statements NAME OF STUDY: LEXISCAN SESTAMIBI STRESS TEST INDICATION: Shortness of Breath, PROCEDURE: At the baseline, the EKG revealed sinus bradycardia with a rate of 59 bpm. Poor R wave progression. Diffuse nonspecific T wave changes. Features of possible old septal NM. The baseline heart was 59 bpm with a blood pressue of 162/105 mm of Hg Lexiscan was infused over a period of 20 seconds. A total of 0.4 milligrams of Lexiscan was infused. The stress phase was continued for a total of 5 minutes. Heart rate at the end of the stress phase was 66 bpm with a blood pressure 189/90 mm of Hg. The EKG at the peak infusion revealed no significant changes. Sestamibi was injected 20 seconds after the Lexiscan infusion. Heart rate at the end of the recovery phase was 65 bpm with a blood pressure of 193/75 mm of Hg. CONCLUSION: 1. No significant EKG changes with the LexiScan infusion 2. No LexiScan induced chest pain or cardiac arrhythmia 3. Normal blood pressure and heart rate response 4. Sestamibi/sestamibi perfusion scan pending; see separate report. Electronically Signed On 09-27-2022 16:18:13 [employer]ITER [employer]ASH[employer] by Patt Zapata M.D. [email or web address]
[2022-09-24 07:18] VITALS: BMI 20.7
--- NOTE | 2022-09-24 07:21 | NMCV_ITS ---
NM michael perf SPECT r/s* [id number] Jaylin Clemens Age: 87 Gender: F : 1935 Exam Date: 09/24/2022 07:47 Ordering Phys: Jenny Gutiérrez MD ([email or web address]) Technologist: KENDALL Lucas Exam Location: [facility] Indications: SHORTNESS OF BREATH STRESS TEST [facility] IMAGE PROTOCOL Rest/Stress 1 Lexiscan Day Radiopharmaceutical Dose (mCi) Administration Site Administered by Rest: Tc-99m 10.7 IV KENDALL Nunez Sestamibi Stress:Tc-99m 32.6 IV KENDALL Nunez Sestamibi Rest: 24-Sep-2022 60 Discovery 630 Stress: 24-Sep-2022 30 Discovery 630 0.4mg Lexiscan. Images obtained in supine and prone position. SPECT RESULTS Technical Quality: Excellent Raw Data Analysis: Normal Image Corrections: No attenuation or motion correction applied Summed Stress Score: 0 Summed Rest Score: 0 Summed Difference Score: 0 PERFUSION FINDINGS Fairly uniform myocardial tracer uptake. No significant perfusion normalities were noted FUNCTIONAL RESULTS (calculated via Gated SPECT) Stress Image LV EF (%): 84 Stress EDV (mL):69 TID: 1.13 Stress ESV (mL):11 FUNCTIONAL FINDINGS: Segmental wall motion analysis revealing no gross wall motion abnormalities IMPRESSIONS 1. Unremarkable Myocardial perfusion imaging 2. Normal LV ejection fraction of 84% 3. LV wall motion analysis revealing no gross wall motion abnormalities. 4. Normal LV volume Low probability for coronary ischemia, based on the above findings Dr Patt Zapata MD [facility] (Electronically Signed) Final Date: 26 September 2022 08:32 S
[2022-09-24 08:00] VITALS: BP 193/75; PULSE 63
[2022-09-24] MEDS: regadenoson 0.4 Mg/5 ml Syringe IVP (08:33)
== END 2022-09-24 06:38 | disposition home or self-care (01) ==
PROVIDERS: PCP Internal Medicine; Visit Provider Internal Medicine Cardiovascular Disease
DX: R06.02 Shortness of breath (principal)
CPT/HCPCS: 36415; 78452; 93017; 96374; 99214; A9500; J2785

== ENCOUNTER → 2023-02-12 13:29 | Outpatient (BNVA) | payer MEDICARE, SELFPAY | PROVIDERS: PCP Internal Medicine; Visit Provider Internal Medicine Cardiovascular Disease | DX: I48.20 Chronic atrial fibrillation, unspecified (principal); R06.02 Shortness of breath; I10 Essential (primary) hypertension; I34.0 Nonrheumatic mitral (valve) insufficiency; E78.00 Pure hypercholesterolemia, unspecified | CPT/HCPCS: 93242; 99214 ==

== ENCOUNTER 2023-03-09 09:23 | Outpatient (CLI) | payer MEDICARE, SELFPAY ==
[2023-03-09 10:03] LABS: Anion Gap 14.1 (5-19); Blood Urea Nitrogen 21 mg/dL (8-23); Calcium 9.7 mg/dL (8.5-10.5); Carbon Dioxide 25 mmol/L (22-29); Chloride 102 mmol/L (98-107); Glucose 79 mg/dL (65-115); Magnesium 2.2 mg/dL (1.7-2.3); Osmolality Calculated 284 mOsm/kg (285-295); Potassium 5.1 mmol/L (3.5-5.1); Sodium 136 mmol/L (136-145)
== END 2023-03-09 09:24 | disposition home or self-care (01) ==
PROVIDERS: PCP Internal Medicine; Visit Provider Internal Medicine Cardiovascular Disease
DX: I48.20 Chronic atrial fibrillation, unspecified (principal); R06.02 Shortness of breath
CPT/HCPCS: 36415; 80048; 83735

== ENCOUNTER → 2023-06-03 14:12 | Outpatient (BNVA) | payer MEDICARE, SELFPAY | PROVIDERS: PCP Internal Medicine; Visit Provider Podiatrist Foot & Ankle Surgery | DX: M20.42 Other hammer toe(s) (acquired), left foot (principal) | CPT/HCPCS: 28010 ==

== ENCOUNTER → 2023-06-09 06:53 | Outpatient (BNVA) | payer MEDICARE, SELFPAY | PROVIDERS: PCP Internal Medicine; Visit Provider Podiatrist Foot & Ankle Surgery | DX: M20.41 Other hammer toe(s) (acquired), right foot (principal); M20.42 Other hammer toe(s) (acquired), left foot | CPT/HCPCS: 28010 ==

== ENCOUNTER 2023-11-19 07:53 | Emergency (ER) | payer MEDICARE, SELFPAY ==
[2023-11-19 08:04] VITALS: BP 239/89; PULSE 56; RESP 15; TEMP 36.4; O2SAT 100; BMI 21.4
--- NOTE | 2023-11-19 08:04 | XRR_ITS ---
PROCEDURE INFORMATION: Exam: XR Left Wrist Exam date and time: 11/19/2023 8:14 AM Age: 88 years old Clinical indication: Injury or trauma; Fall; Blunt trauma (contusions or hematomas); Wrist; Left; Additional info: Fall, wrist pain and swelling TECHNIQUE: Imaging protocol: Radiologic exam of the left wrist. Views: 3 or more views. COMPARISON: No relevant prior studies available. FINDINGS: Bones/joints: Minimally displaced mildly comminuted fracture of the distal radius. Degenerative changes at the 1st carpometacarpal joint and at the radiocarpal articulations. Soft tissues: Normal. XR/XR wrist LT min 3V* [id number] IMPRESSION: Fracture of the distal radius.
--- NOTE | 2023-11-19 08:09 | ED_ITS ---
HPI - Extremity Problem General: Chief complaint: Extremity Injury, Upper Stated complaint: fall, wrist and hand pain Time Seen by Provider: 11/19/23 07:59 History of Present Illness: 88-year-old female who presents the [facility] room with left wrist pain. She says she had a fall 2020 4 hours ago and caught herself with her left hand. She has had swelling in her forearm and her hand and her wrist. Pain is in her wrist. Family and family member talked her into coming into the emergency room. She had no other injury. No head injury. No loss of consciousness. No altered mental status. No chest pain. No shortness of breath. No abdominal pain. No nausea or vomiting. Review of Systems Narrative: Constitutional symptoms: Negative except as documented in HPI. Skin symptoms: Negative except as documented in HPI. Eye symptoms: Negative except as documented in HPI. ENMT symptoms: Negative except as documented in HPI. Respiratory symptoms: Negative except as documented in HPI. Cardiovascular symptoms: Negative except as documented in HPI. Gastrointestinal symptoms: Negative except as documented in HPI. Genitourinary symptoms: Negative except as documented in HPI. Musculoskeletal symptoms: Negative except as documented in HPI. Neurologic symptoms: Negative except as documented in HPI. Psychiatric symptoms: Negative except as documented in HPI. Endocrine symptoms: Negative except as documented in HPI. 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 Mitral valve regurgitation New onset a-fib Palpitation Recurrent depressive disorder Tricuspid regurgitation Surgical History History of colonoscopy History of hemiarthroplasty of left hip History of hemorrhoidectomy History of hysterectomy History of oophorectomy History of tonsillectomy and adenoidectomy Status post hip hemiarthroplasty Family History Other CAD (coronary artery disease) Diabetes Heart disease Hypertension Social History Smoking and tobacco/nicotine status: never used tobacco/nicotine Alcohol intake: current Alcohol intake frequency: few times a month Alcohol type: wine Substance/Drug Use: never Household members: spouse Marital status: Physical Exam Narrative: EXAM NARRATIVE: General: Alert, no acute distress. Skin: warm and dry Head: Normocephalic Neck: Trachea midline Eye: Extraocular movements are intact. Ears, nose, mouth and throat: Oral mucosa moist Respiratory: Respirations are non-labored Musculoskeletal: Some mild limitation range of motion secondary to pain. She has diffuse swelling of her hand wrist and forearm. Some redness. No warmth. Some bruising. Neurovascularly intact. Neurological: Alert and oriented to person, place, time, and situation, No focal neurological deficit observed. Psychiatric: Cooperative, appropriate mood & affect. Course Vital Signs: Vital signs: Vital Signs Temperature 97.5 F L 11/19/23 08:04 Pulse Rate 53 L 11/19/23 08:13 Respiratory Rate 18 11/19/23 08:13 Blood Pressure 194/90 11/19/23 08:13 Pulse Oximetry 96 11/19/23 08:13 Oxygen Delivery Me thod Room Air 11/19/23 08:13 MDM - Extremity (Nontraumatic) Medical Decision Making Medical decision making: Differential diagnosis including but not limited to and based on the above HPI, review of systems and physical exam: Concern for wrist fracture versus bruising and strain. X-ray ordered to evaluate Orders placed to evaluate differential diagnosis based on the above differenti al, HPI and physical exam X-ray of the left wrist. Distal radial fracture with slight dorsal angulation. I reviewed the patient's medical record. Reexamination: Splint placed by nursing. I have examined personally. Neurovascularly intact. Patient has no altered mental status. No increased work of breathing. No focal motor deficits. All radiology interpretation(s) finalized by discharge Other Data Assessment and plan: Distal radius fracture - Discharged home - Discussed plan with patient. Answered any questions. - Evaluation and treatment of this problem were appropriate in the emergency setting. Discharge Plan Discharge Patient Disposition: Home Clinical Impression: Fracture of wrist Condition: Stable Prescriptions: No Action fluticasone propionate 50 mcg/actuation spray,suspension 1 spray intranasal BID PRN (Reason: Nasal Congestion) Rx Instructions: administer into each nostril pantoprazole 40 mg tablet,delayed release (DR/EC) 40 mg PO DAILY venlafaxine 37.5 mg capsule,extended release 24hr 37.5 mg PO DAILY zinc gluconate 50 mg tablet 50 mg PO DAILY ferrous sulfate 325 mg (65 mg iron) tablet,delayed release (DR/EC) 325 mg PO DAILY ascorbic acid (vitamin C) 1,000 mg tablet 1 g PO DAILY nitroglycerin [Nitrostat] 0.4 mg tablet, sublingual 0.4 mg sublingual Q5M PRN (Reason: chest pain) Qty: 25 3RF Rx Instructions: do not exceed 3 doses per episode levothyroxine 100 mcg tablet 100 mcg PO DAILY Qty: 90 0RF diltiazem HCl 120 mg capsule,extended release 24 hr 120 mg PO DAILY Qty: 90 3RF Inspra 50 mg tablet 50 mg PO QPM Qty: 90 3RF amiodarone 100 mg tablet 100 mg PO DAILY Qty: 90 3RF PreserVision AREDS-2 [id number]-mg Capsule 1 tab PO BID acetaminophen [Tylenol Extra Strength] 500 mg Tablet 1,000 mg PO BID tolterodine [Detrol LA] 4 mg capsule,extended release 24hr 4 mg PO QPM calcium carbonate 500 mg calcium (1,250 mg) Tablet 500 mg PO DAILY mirtazapine 15 mg tablet 15 - 30 mg PO BEDTIME lisinopril 40 mg tablet 40 mg PO DAILY aripiprazole 5 mg tablet 5 mg PO QPM simvastatin 10 mg tablet 10 mg PO QPM Discharge Orders: Discharge ED (Routine); Ordered 11/19/23 Ordered By: Jesusita Riley Referrals: Erich Bernabe DO [Physician] - 4-7 days (Call for appointment) Lane Kennedy MD [Primary Care Provider] - (You have been screened and evaluated and felt safe for discharge. Health conditions do change or evolve sometimes and as such it is important that you follow up with your Primary Doctor to be re checked, 3-5 days is a general good time frame for follow up. You are always welcome to return to the ED for re assessment if your symptoms are worsening or you have new concerns) Discharge Diet: Usual diet Discharge Activity: Increase activity as tolerated Patient Instructions: Splint Care (ED) Coding Level of Care Code ED Touch Up Carver for [place] Rush
[2023-11-19 08:13] VITALS: BP 194/90; PULSE 53; RESP 18; O2SAT 96
[2023-11-19 09:04] VITALS: BP 189/77; PULSE 53; RESP 18; O2SAT 96
== END 2023-11-19 09:10 | disposition home or self-care (01) ==
PROVIDERS: Emergency Provider Emergency Medicine; PCP Internal Medicine
DX: S52.502A Unspecified fracture of the lower end of left radius, initial encounter for closed fracture (principal); I10 Essential (primary) hypertension; E78.5 Hyperlipidemia, unspecified; W19.XXXA Unspecified fall, initial encounter
CPT/HCPCS: 29125; 73110; 99283

== ENCOUNTER 2023-11-24 15:40 | Outpatient (CLI) | payer MEDICARE, SELFPAY | END 2023-11-24 15:41 | disposition home or self-care (01) | LOC: SPT 15:40 | PROVIDERS: PCP Internal Medicine; Visit Provider Orthopaedic Surgery | DX: Z46.89 Encounter for fitting and adjustment of other specified devices (principal); S52.592D Other fractures of lower end of left radius, subsequent encounter for closed fracture with routine healing; X58.XXXD Exposure to other specified factors, subsequent encounter | CPT/HCPCS: 97760; L3982 ==

== ENCOUNTER → 2023-12-01 08:21 | Outpatient (BNVA) | payer MEDICARE, SELFPAY | PROVIDERS: PCP Internal Medicine; Visit Provider Orthopaedic Surgery | DX: S52.532A Colles' fracture of left radius, initial encounter for closed fracture (principal); W19.XXXA Unspecified fall, initial encounter; S62.102A Fracture of unspecified carpal bone, left wrist, initial encounter for closed fracture | CPT/HCPCS: 73110; 99203 ==

== ENCOUNTER → 2023-12-29 07:57 | Outpatient (BNVA) | payer MEDICARE, SELFPAY | PROVIDERS: PCP Internal Medicine; Visit Provider Orthopaedic Surgery | DX: S52.532A Colles' fracture of left radius, initial encounter for closed fracture (principal); W19.XXXA Unspecified fall, initial encounter | CPT/HCPCS: 73110; 99213 ==

== ENCOUNTER 2024-02-18 09:30 | Oncology outpatient (recurring) (ONCR) | payer MEDICARE, SELFPAY ==
[2024-02-11 09:30] VITALS: BP 182/88; PULSE 80; RESP 16; TEMP 35.6; O2SAT 98
--- NOTE | 2024-02-11 09:33 | PC.NURSE ---
patient states BP has been running high and PCP is aware and is treating, she did take her medication this morning.
[2024-02-11] MEDS: iron sucrose 200 MG in sodium chloride 0.9% (100 ml) 100 ML 220 MG IV (09:49)
[2024-02-11 10:25] VITALS: BP 176/88; PULSE 49; RESP 16; TEMP 36.9; O2SAT 99
[2024-02-18 09:39] VITALS: BP 182/66; PULSE 80; RESP 17; TEMP 36.3
[2024-02-18] MEDS: iron sucrose 200 MG in sodium chloride 0.9% (100 ml) 100 ML 220 MG IV (10:01)
[2024-02-18 10:35] VITALS: BP 191/78; PULSE 49; TEMP 36.4
== END 2024-02-24 23:59 | disposition home or self-care (01) ==
PROVIDERS: PCP Internal Medicine; Visit Provider Internal Medicine
DX: Z53.9 Procedure and treatment not carried out, unspecified reason (principal); K90.9 Intestinal malabsorption, unspecified; Z79.899 Other long term (current) drug therapy
CPT/HCPCS: 96365; J1756

== ENCOUNTER 2024-04-02 15:41 | Emergency (ER) | payer MEDICARE, SELFPAY ==
[2024-04-02 15:56] VITALS: BP 218/72; PULSE 66; RESP 18; TEMP 36.7; O2SAT 99; BMI 22.3
--- NOTE | 2024-04-02 16:11 | W.ED.WOUNDLC ---
Documented by User: Jesusita Riley MD 04/02/24 21:05 HPI - Wound/Laceration General: Chief Complaint: Wound/Laceration Stated Complaint: right leg cut Time Seen by Provider: 04/02/24 16:06 History of Present Illness: 88-year-old woman who has a history of atrial fibrillation, tricuspid and mitral regurgitation, hypertension and hyperlipidemia who presents to the emergency room after she cut her right leg. She has a laceration on the right leg with some bruising of the skin on 1 side. She could not get the bleeding controlled initially. It is now controlled. She is on Plavix. Related Data Home Medications Medication Instructions Recorded Confirmed acetaminophen 500 mg tablet 1,000 mg PO BID 09/07/20 02/09/24 (Tylenol Extra Strength) vit C 250 mg-vit E 90 mg-zinc 40 1 tab PO BID 09/07/20 02/09/24 mg-copper 1 [id number] capsule (PreserVision AREDS-2) fluticasone propionate 50 1 spray intranasal BID PRN Nasal 04/16/22 02/09/24 mcg/actuation nasal Congestion spray,suspension calcium carbonate 500 mg PO DAILY 04/29/22 02/09/24 tolterodine 4 mg capsule,extended 4 mg PO QPM 04/29/22 02/09/24 release 24 hr (Detrol LA) ascorbic acid (vitamin C) 1,000 mg 1 g PO DAILY 02/12/23 02/09/24 tablet ferrous sulfate 325 mg (65 mg 325 mg PO DAILY 02/12/23 02/09/24 iron) tablet,delayed release pantoprazole 40 mg tablet,delayed 40 mg PO DAILY 02/12/23 02/09/24 release venlafaxine 37.5 mg 37.5 mg PO DAILY 02/12/23 02/09/24 capsule,extended release 24 hr zinc gluconate 50 mg tablet 50 mg PO DAILY 02/12/23 02/09/24 lisinopril 40 mg tablet 40 mg PO DAILY 11/19/23 02/09/24 mirtazapine 15 mg tablet 15 - 30 mg PO BEDTIME 11/19/23 02/09/24 simvastatin 10 mg tablet 10 mg PO QPM 11/19/23 02/09/24 Previous Rx's Medication Instructions Recorded nitroglycerin 0.4 mg sublingual 0.4 mg sublingual Q5M PRN chest 08/28/21 tablet (Nitrostat) pain #25 tabs levothyroxine 100 mcg tablet 100 mcg PO DAILY #90 tabs 06/09/22 diltiazem HCl 120 mg capsule,24 120 mg PO DAILY #90 caps 03/04/23 hr,extended release eplerenone 50 mg tablet 50 mg PO QPM #90 tabs 03/04/23 Fastform brace #1 ea 11/24/23 amiodarone 100 mg tablet 100 mg PO DAILY #30 tabs 03/21/24 Allergies Allergy/AdvReac Type Severity Reaction Status Date / Time nifedipine Allergy ADR-Dizzine Verified 04/02/24 15:59 ss Review of Systems Narrative: Constitutional symptoms: Negative except as documented in HPI. Skin symptoms: Negative except as documented in HPI. Eye symptoms: Negative except as documented in HPI. ENMT symptoms: Negative except as documented in HPI. Respiratory symptoms: Negative except as documented in HPI. Cardiovascular symptoms: Negative except as documented in HPI. Gastrointestinal symptoms: Negative except as documented in HPI. Genitourinary symptoms: Negative except as documented in HPI. Musculoskeletal symptoms: Negative except as documented in HPI. Neurologic symptoms: Negative except as documented in HPI. Psychiatric symptoms: Negative except as documented in HPI. Endocrine symptoms: Negative except as documented in HPI. 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 Surgical History Status post hip hemiarthroplasty History of hysterectomy History of oophorectomy History of tonsillectomy and adenoidectomy History of hemorrhoidectomy History of hemiarthroplasty of left hip History of colonoscopy Family History Other CAD (coronary artery disease) Diabetes Heart disease Hypertension Social History Smoking and tobacco/nicotine status: never used tobacco/nicotine Alcohol intake: current Alcohol intake frequency: few times a month Alcohol type: wine Substance/Drug Use: never Household members: spouse Marital status: Physical Exam Narrative: EXAM NARRATIVE: General: Alert, no acute distress. Skin: warm and dry. Laceration in the subcutaneous tissue on the right mid mccain laterally. Bleeding is now controlled. There is some subcutaneous tissue viewable. She has some bruise of macerated skin to the right of the laceration. It is running horizontal. Head: Normocephalic Neck: Trachea midline Eye: Extraocular movements are intact. Ears, nose, mouth and throat: Oral mucosa moist Respiratory: Respirations are non-labored Musculoskeletal: Normal ROM Neurological: Alert and oriented, No focal neurological deficit observed. Psychiatric: Cooperative, appropriate mood & affect. Course Vital Signs: Vital signs: Vital Signs Temperature 98.1 F 04/02/24 15:56 Pulse Rate 62 04/02/24 17:30 Respiratory Rate 18 04/02/24 15:56 Blood Pressure 203/98 04/02/24 17:30 Pulse Oximetry 97 04/02/24 17:30 Oxygen Delivery Me thod Room Air 04/02/24 15:56 MDM - Wound/Laceration Medical Decision Making Assessment and plan: Leg laceration - Discharged home - Discussed plan with patient. Answered any questions. - Evaluation and treatment of this problem were appropriate in the emergency setting. No radiology studies performed this visit Discharge Plan Discharge Patient Disposition: Home Clinical Impression: Laceration Condition: Stable Prescriptions: No Action fluticasone propionate 50 mcg/actuation spray,suspension 1 spray intranasal BID PRN (Reason: Nasal Congestion) Rx Instructions: administer into each nostril pantoprazole 40 mg tablet,delayed release (DR/EC) 40 mg PO DAILY venlafaxine 37.5 mg capsule,extended release 24hr 37.5 mg PO DAILY zinc gluconate 50 mg tablet 50 mg PO DAILY ferrous sulfate 325 mg (65 mg iron) tablet,delayed release (DR/EC) 325 mg PO DAILY ascorbic acid (vitamin C) 1,000 mg tablet 1 g PO DAILY (DME) Fastform brace See Rx Instructions .Route .MEDSUPPLY Qty: 1 0RF Rx Instructions: As directed nitroglycerin [Nitrostat] 0.4 mg tablet, sublingual 0.4 mg sublingual Q5M PRN (Reason: chest pain) Qty: 25 3RF Rx Instructions: do not exceed 3 doses per episode levothyroxine 100 mcg tablet 100 mcg PO DAILY Qty: 90 0RF diltiazem HCl 120 mg capsule,extended release 24 hr 120 mg PO DAILY Qty: 90 3RF Inspra 50 mg tablet 50 mg PO QPM Qty: 90 3RF amiodarone 100 mg tablet 100 mg PO DAILY Qty: 30 0RF PreserVision AREDS-2 [id number]-armf-[id number]-mg Capsule 1 tab PO BID acetaminophen [Tylenol Extra Strength] 500 mg Tablet 1,000 mg PO BID tolterodine [Detrol LA] 4 mg capsule,extended release 24hr 4 mg PO QPM calcium carbonate 500 mg calcium (1,250 mg) Tablet 500 mg PO DAILY mirtazapine 15 mg tablet 15 - 30 mg PO BEDTIME lisinopril 40 mg tablet 40 mg PO DAILY simvastatin 10 mg tablet 10 mg PO QPM Discharge Orders: Discharge ED (Routine); Ordered 04/02/24 Ordered By: Jesusita Riley Referrals: Lane Kennedy MD [Primary Care Provider] - Discharge Diet: Usual diet Discharge Activity: Increase activity as tolerated Patient Instructions: Care For Your Stitches (ED), Laceration (ED) Activity Restrictions/Additional Instructions: Keep the area clean and dry, wash twice per day with antibacterial soap and water. Return to your primary provider or the emergency room in 10 days for suture removal. Avoid any prolonged submersion in water. Avoid all caab water, pond water, streams or other untreated water. Thank you for choosing [facility] for your healthcare needs today. Please realize this is an emergency room and that we are providing you with a medical screening exam and this may not be complete and all inclusive of all the testing and or work up that you may need to determine your ailment or severity of your illness. You have been screened and evaluated and felt safe for discharge. Health conditions do change or evolve sometimes and as such it is important that you follow up with your Primary Doctor to be re checked, 3-5 days is a general good time frame for follow up. 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 [place] Fwd Documented by User: ESPERANZA Andrade 04/02/24 20:50 HPI - Wound/Laceration General: Chief Complaint: Wound/Laceration Stated Complaint: right leg cut Time Seen by Provider: 04/02/24 16:06 Related Data Home Medications Medication Instructions Recorded Confirmed acetaminophen 500 mg tablet 1,000 mg PO BID 09/07/20 02/09/24 (Tylenol Extra Strength) vit C 250 mg-vit E 90 mg-zinc 40 1 tab PO BID 09/07/20 02/09/24 mg-copper 1 [id number] capsule (PreserVision AREDS-2) fluticasone propionate 50 1 spray intranasal BID PRN Nasal 04/16/22 02/09/24 mcg/actuation nasal Congestion spray,suspension calcium carbonate 500 mg PO DAILY 04/29/22 02/09/24 tolterodine 4 mg capsule,extended 4 mg PO QPM 04/29/22 02/09/24 release 24 hr (Detrol LA) ascorbic acid (vitamin C) 1,000 mg 1 g PO DAILY 02/12/23 02/09/24 tablet ferrous sulfate 325 mg (65 mg 325 mg PO DAILY 02/12/23 02/09/24 iron) tablet,delayed release pantoprazole 40 mg tablet,delayed 40 mg PO DAILY 02/12/23 02/09/24 release venlafaxine 37.5 mg 37.5 mg PO DAILY 02/12/23 02/09/24 capsule,extended release 24 hr zinc gluconate 50 mg tablet 50 mg PO DAILY 02/12/23 02/09/24 lisinopril 40 mg tablet 40 mg PO DAILY 11/19/23 02/09/24 mirtazapine 15 mg tablet 15 - 30 mg PO BEDTIME 11/19/23 02/09/24 simvastatin 10 mg tablet 10 mg PO QPM 11/19/23 02/09/24 Previous Rx's Medication Instructions Recorded nitroglycerin 0.4 mg sublingual 0.4 mg sublingual Q5M PRN chest 08/28/21 tablet (Nitrostat) pain #25 tabs levothyroxine 100 mcg tablet 100 mcg PO DAILY #90 tabs 06/09/22 diltiazem HCl 120 mg capsule,24 120 mg PO DAILY #90 caps 03/04/23 hr,extended release eplerenone 50 mg tablet 50 mg PO QPM #90 tabs 03/04/23 Fastform brace #1 ea 11/24/23 amiodarone 100 mg tablet 100 mg PO DAILY #30 tabs 03/21/24 Allergies Allergy/AdvReac Type Severity Reaction Status Date / Time nifedipine Allergy ADR-Dizzine Verified 04/02/24 15:59 ss 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 Surgical History Status post hip hemiarthroplasty History of hysterectomy History of oophorectomy History of tonsillectomy and adenoidectomy History of hemorrhoidectomy History of hemiarthroplasty of left hip History of colonoscopy Family History Other CAD (coronary artery disease) Diabetes Heart disease Hypertension Social History Smoking and tobacco/nicotine status: never used tobacco/nicotine Alcohol intake: current Alcohol intake frequency: few times a month Alcohol type: wine Substance/Drug Use: never Household members: spouse Marital status: Procedures Laceration Laceration 1: Site: lower extremity Side (If applicable): right Size (cm): 6 Description: linear and clean Depth: simple, single layer Local Anesthetic: lidocaine 2% and with epi Amount of anesthesia used (mL): 7 Pre-repair: wound explored, irrigated extensively and deep structures intact Skin layer closed with: other (prolene) Size (cm): 4-0 Number of sutures: 8 Technique: simple, interrupted Course Vital Signs: Vital signs: Vital Signs Temperature 98.1 F 04/02/24 15:56 Pulse Rate 62 04/02/24 17:30 Respiratory Rate 18 04/02/24 15:56 Blood Pressure 203/98 04/02/24 17:30 Pulse Oximetry 97 04/02/24 17:30 Oxygen Delivery Me thod Room Air 04/02/24 15:56 Discharge Plan Discharge Patient Disposition: Home Clinical Impression: Laceration Condition: Stable Prescriptions: No Action fluticasone propionate 50 mcg/actuation spray,suspension 1 spray intranasal BID PRN (Reason: Nasal Congestion) Rx Instructions: administer into each nostril pantoprazole 40 mg tablet,delayed release (DR/EC) 40 mg PO DAILY venlafaxine 37.5 mg capsule,extended release 24hr 37.5 mg PO DAILY zinc gluconate 50 mg tablet 50 mg PO DAILY ferrous sulfate 325 mg (65 mg iron) tablet,delayed release (DR/EC) 325 mg PO DAILY ascorbic acid (vitamin C) 1,000 mg tablet 1 g PO DAILY (DME) Fastform brace See Rx Instructions .Route .MEDSUPPLY Qty: 1 0RF Rx Instructions: As directed nitroglycerin [Nitrostat] 0.4 mg tablet, sublingual 0.4 mg sublingual Q5M PRN (Reason: chest pain) Qty: 25 3RF Rx Instructions: do not exceed 3 doses per episode levothyroxine 100 mcg tablet 100 mcg PO DAILY Qty: 90 0RF diltiazem HCl 120 mg capsule,extended release 24 hr 120 mg PO DAILY Qty: 90 3RF Inspra 50 mg tablet 50 mg PO QPM Qty: 90 3RF amiodarone 100 mg tablet 100 mg PO DAILY Qty: 30 0RF PreserVision AREDS-2 [id number] hu-[id number]-[id number]-mg Capsule 1 tab PO BID acetaminophen [Tylenol Extra Strength] 500 mg Tablet 1,000 mg PO BID tolterodine [Detrol LA] 4 mg capsule,extended release 24hr 4 mg PO QPM calcium carbonate 500 mg calcium (1,250 mg) Tablet 500 mg PO DAILY mirtazapine 15 mg tablet 15 - 30 mg PO BEDTIME lisinopril 40 mg tablet 40 mg PO DAILY simvastatin 10 mg tablet 10 mg PO QPM Discharge Orders: Discharge ED (Routine); Ordered 04/02/24 Ordered By: Jesusita Riley Referrals: Lane Kennedy MD [Primary Care Provider] - Discharge Diet: Usual diet Discharge Activity: Increase activity as tolerated Patient Instructions: Care For Your Stitches (ED), Laceration (ED) Activity Restrictions/Additional Instructions: Keep the area clean and dry, wash twice per day with antibacterial soap and water. Return to your primary provider or the emergency room in 10 days for suture removal. Avoid any prolonged submersion in water. Avoid all caba water, pond water, streams or other untreated water. Thank you for choosing [facility] for your healthcare needs today. Please realize this is an emergency room and that we are providing you with a medical screening exam and this may not be complete and all inclusive of all the testing and or work up that you may need to determine your ailment or severity of your illness. You have been screened and evaluated and felt safe for discharge. Health conditions do change or evolve sometimes and as such it is important that you follow up with your Primary Doctor to be re checked, 3-5 days is a general good time frame for follow up. 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 [place] Rush
[2024-04-02] MEDS: lidocaine-epi 1% 20 mL INJ INJECTION (16:54)
[2024-04-02 17:30] VITALS: BP 203/98; PULSE 62; O2SAT 97
== END 2024-04-02 17:33 | disposition home or self-care (01) ==
PROVIDERS: Emergency Provider Emergency Medicine; PCP Internal Medicine
DX: S81.811A Laceration without foreign body, right lower leg, initial encounter (principal); I10 Essential (primary) hypertension; E78.5 Hyperlipidemia, unspecified; X58.XXXA Exposure to other specified factors, initial encounter
CPT/HCPCS: 99282

== ENCOUNTER 2024-04-20 07:04 | Emergency (ER) | payer MEDICARE, SELFPAY ==
[2024-04-20 07:09] VITALS: BP 200/106; PULSE 76; RESP 18; TEMP 36.7; O2SAT 98; BMI 22.3
--- NOTE | 2024-04-20 07:16 | W.ED.WOUNDLC ---
HPI - Wound/Laceration General: Chief Complaint: Wound/Laceration Stated Complaint: R. leg stich is bleeding nonstop Time Seen by Provider: 04/20/24 07:13 History of Present Illness: -year-old female presents emergency room with bleeding from previous wound that was sutured about a week ago for her right lower leg. She got multiple varicosities. She is on Plavix began this morning while she was standing she has quite a bit of dried blood about her foot from what was bleeding when she arrived pressure bandage applied by nursing staff and I removed to evaluate there is slight pulsation improved with direct pressure but recurs even while she is lying down. Sutures in place from previous skin tear that was tacked down appears the majority of the tissue has been devascularized and sutures are in place but not really holding any pain at this time. Associated symptoms: Denies chills or fever(s) Related Data Home Medications Medication Instructions Recorded Confirmed acetaminophen 500 mg tablet 1,000 mg PO BID 09/07/20 02/09/24 (Tylenol Extra Strength) vit C 250 mg-vit E 90 mg-zinc 40 1 tab PO BID 09/07/20 02/09/24 mg-copper 1 [id number] capsule (PreserVision AREDS-2) fluticasone propionate 50 1 spray intranasal BID PRN Nasal 04/16/22 02/09/24 mcg/actuation nasal Congestion spray,suspension calcium carbonate 500 mg PO DAILY 04/29/22 02/09/24 tolterodine 4 mg capsule,extended 4 mg PO QPM 04/29/22 02/09/24 release 24 hr (Detrol LA) ascorbic acid (vitamin C) 1,000 mg 1 g PO DAILY 02/12/23 02/09/24 tablet ferrous sulfate 325 mg (65 mg 325 mg PO DAILY 02/12/23 02/09/24 iron) tablet,delayed release pantoprazole 40 mg tablet,delayed 40 mg PO DAILY 02/12/23 02/09/24 release venlafaxine 37.5 mg 37.5 mg PO DAILY 02/12/23 02/09/24 capsule,extended release 24 hr zinc gluconate 50 mg tablet 50 mg PO DAILY 02/12/23 02/09/24 lisinopril 40 mg tablet 40 mg PO DAILY 11/19/23 02/09/24 mirtazapine 15 mg tablet 15 - 30 mg PO BEDTIME 11/19/23 02/09/24 simvastatin 10 mg tablet 10 mg PO QPM 11/19/23 02/09/24 Previous Rx's Medication Instructions Recorded nitroglycerin 0.4 mg sublingual 0.4 mg sublingual Q5M PRN chest 08/28/21 tablet (Nitrostat) pain #25 tabs levothyroxine 100 mcg tablet 100 mcg PO DAILY #90 tabs 06/09/22 diltiazem HCl 120 mg capsule,24 120 mg PO DAILY #90 caps 03/04/23 hr,extended release eplerenone 50 mg tablet 50 mg PO QPM #90 tabs 03/04/23 Fastform brace #1 ea 11/24/23 amiodarone 100 mg tablet See Rx Instructions .Route 04/18/24 .COMPLEX #30 tabs mupirocin 2 % topical ointment 1 applic topical DAILY #15 grams 04/20/24 Allergies Allergy/AdvReac Type Severity Reaction Status Date / Time nifedipine Allergy ADR-Dizzine Verified 04/02/24 15:59 ss Review of Systems Const: Denies: fever(s) or chills Card: Denies: chest pain Resp: Denies: dyspnea GI: Denies: abdominal pain : Denies: dysuria, urinary frequency or urinary urgency Musc: Denies: neck pain or back pain Skin/Breast: Denies: rash 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 Surgical History Status post hip hemiarthroplasty History of hysterectomy History of oophorectomy History of tonsillectomy and adenoidectomy History of hemorrhoidectomy History of hemiarthroplasty of left hip History of colonoscopy Family History Other CAD (coronary artery disease) Diabetes Heart disease Hypertension Social History Smoking and tobacco/nicotine status: never used tobacco/nicotine Alcohol intake: current Alcohol intake frequency: few times a month Alcohol type: wine Substance/Drug Use: never Household members: spouse Marital status: Physical Exam Const: COMMON NORMALS: no acute distress GENERAL APPEARANCE: cooperative and comfortable ORIENTATION/CONSCIOUSNESS: Yes awake, Yes oriented to person, Yes oriented to place and Yes oriented to time HENMT: COMMON NORMALS: normocephalic, atraumatic and hearing grossly normal bilaterally HEAD & SCALP: normocephalic and atraumatic Resp: COMMON NORMALS: normal respiratory effort, No retractions, No use of accessory muscles and clear to auscultation bilaterally AUSCULTATION: clear to auscultation bilaterally Cardio: COMMON NORMALS: regular rate, regular rhythm and No murmurs present (Cardio) RATE: regular rate RHYTHM: regular rhythm Extremity: COMMON NORMALS: normal to inspection, capillary refill normal, no clubbing, cyanosis or edema, no calf tenderness and no pedal edema OTHER: Healing laceration distal right lower leg laterally. Prolene sutures in place not appear to be holding any tension. The inferior aspect of the wound there is a varicose vein that is pulsatile bleeding easily controlled with direct pressure but recurs when pressure is released. Neuro: SENSORIUM/ORIENTATION: Yes oriented to person, Yes oriented to place and Yes oriented to time Skin: COMMON NORMALS: no rashes or lesions noted GENERAL SKIN EXAM: no rashes or lesions noted Procedures Laceration Laceration 1: Site: lower extremity Side (If applicable): right Description: other (Bleeding varicose vein) Local Anesthetic: lidocaine 1% and with epi Amount of anesthesia used (mL): 2 Skin layer closed with: vicryl Size (cm): 4-0 Number of sutures: 1 Technique: other (Single [id number] suture applied) Course Vital Signs: Vital signs: Vital Signs Temperature 98.1 F 04/20/24 07:09 Pulse Rate 64 04/20/24 08:26 Respiratory Rate 15 04/20/24 08:25 Blood Pressure 174/88 04/20/24 08:26 Pulse Oximetry 97 04/20/24 08:26 Oxygen Delivery Me thod Room Air 04/20/24 08:25 MDM - Wound/Laceration Medical Decision Making Initial sutures from previous wound removed [id number] suture placed good hemostasis. Apply topical antibiotic to the wound once daily suture to be removed in approximately 1 week return if has further problems Medical Records I reviewed the patient's medical records. 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 Condition: Stable Prescriptions: New mupirocin 2 % ointment 1 applic topical DAILY Qty: 15 0RF No Action fluticasone propionate 50 mcg/actuation spray,suspension 1 spray intranasal BID PRN (Reason: Nasal Congestion) Rx Instructions: administer into each nostril pantoprazole 40 mg tablet,delayed release (DR/EC) 40 mg PO DAILY venlafaxine 37.5 mg capsule,extended release 24hr 37.5 mg PO DAILY zinc gluconate 50 mg tablet 50 mg PO DAILY ferrous sulfate 325 mg (65 mg iron) tablet,delayed release (DR/EC) 325 mg PO DAILY ascorbic acid (vitamin C) 1,000 mg tablet 1 g PO DAILY (DME) Fastform brace See Rx Instructions .Route .MEDSUPPLY Qty: 1 0RF Rx Instructions: As directed nitroglycerin [Nitrostat] 0.4 mg tablet, sublingual 0.4 mg sublingual Q5M PRN (Reason: chest pain) Qty: 25 3RF Rx Instructions: do not exceed 3 doses per episode levothyroxine 100 mcg tablet 100 mcg PO DAILY Qty: 90 0RF diltiazem HCl 120 mg capsule,extended release 24 hr 120 mg PO DAILY Qty: 90 3RF Inspra 50 mg tablet 50 mg PO QPM Qty: 90 3RF amiodarone 100 mg tablet See Rx Instructions .ROUTE .COMPLEX Qty: 30 1RF Dose Instruction: TAKE 1 TABLET BY MOUTH EVERY DAY Rx Instructions: TAKE 1 TABLET BY MOUTH EVERY DAY PreserVision AREDS-2 [id number]-mg Capsule 1 tab PO BID acetaminophen [Tylenol Extra Strength] 500 mg Tablet 1,000 mg PO BID tolterodine [Detrol LA] 4 mg capsule,extended release 24hr 4 mg PO QPM calcium carbonate 500 mg calcium (1,250 mg) Tablet 500 mg PO DAILY mirtazapine 15 mg tablet 15 - 30 mg PO BEDTIME lisinopril 40 mg tablet 40 mg PO DAILY simvastatin 10 mg tablet 10 mg PO QPM Discharge Orders: Discharge ED (Routine); Ordered 04/20/24 Ordered By: Denilson Schaffer Referrals: Lane Kennedy MD [Primary Care Provider] - Discharge Diet: Usual diet Discharge Activity: Increase activity as tolerated Patient Instructions: Opioid Safety, Pain Management Activity Restrictions/Additional Instructions: Thank you for choosing [facility] for your healthcare needs today. It is very important that you follow up as instructed or that you return to the Emergency Department should you have concerns or if your condition changes or worsens in any way. You were seen for a bleeding varicose vein on your right lower leg. The previous stitches were removed and a single stitch was placed. This stitch should be removed in approximately 1 week. Apply topical antibiotic to the wound nad the stich on the right leg. 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
[2024-04-20 08:25] VITALS: BP 174/88; PULSE 64; RESP 15; O2SAT 97
[2024-04-20 08:26] VITALS: BP 174/88; PULSE 64; O2SAT 97
== END 2024-04-20 08:27 | disposition home or self-care (01) ==
PROVIDERS: Emergency Provider Family Medicine; PCP Internal Medicine
DX: I83.891 Varicose veins of right lower extremity with other complications (principal); I10 Essential (primary) hypertension; E78.5 Hyperlipidemia, unspecified
CPT/HCPCS: 12001; 99283

== ENCOUNTER → 2024-05-25 15:41 | Outpatient (BNVA) | payer MEDICARE, SELFPAY | PROVIDERS: PCP Internal Medicine; Visit Provider Internal Medicine Cardiovascular Disease | DX: I48.20 Chronic atrial fibrillation, unspecified (principal); I10 Essential (primary) hypertension | CPT/HCPCS: 99204 ==

== ENCOUNTER 2024-05-29 12:08 | Emergency (ER) | payer MEDICARE, SELFPAY ==
[2024-05-29 12:22] VITALS: TEMP 36.4
[2024-05-29 12:25] VITALS: BP 197/93; PULSE 67; O2SAT 99
[2024-05-29] MEDS: lidocaine 1% 10 ML INJ 20 ML SUBCUT (12:41)
--- NOTE | 2024-05-29 12:42 | W.ED.WOUNDLC ---
HPI - Wound/Laceration General: Chief Complaint: Wound/Laceration Stated Complaint: Bleeding and wont stop Time Seen by Provider: 05/29/24 12:23 Source: patient Mode of arrival: ambulatory Limitations: no limitations History of Present Illness: 88-year-old female states she has a small area on her left lower leg states been bleeding since last night states has slowly ooze but is unable to get it to stop bleeding she is on blood thinners she denies any pain denies any worse improved factors Associated symptoms: Denies chills, fever(s), nausea or vomiting Related Data Home Medications Medication Instructions Recorded Confirmed acetaminophen 500 mg tablet 1,000 mg PO BID 09/07/20 05/25/24 (Tylenol Extra Strength) vit C 250 mg-vit E 90 mg-zinc 40 1 tab PO BID 09/07/20 05/25/24 mg-copper 1 ue-milcxc-ealesd capsule (PreserVision AREDS-2) fluticasone propionate 50 1 spray intranasal BID PRN Nasal 04/16/22 05/25/24 mcg/actuation nasal Congestion spray,suspension calcium carbonate 500 mg PO DAILY 04/29/22 05/25/24 tolterodine 4 mg capsule,extended 4 mg PO QPM 04/29/22 05/25/24 release 24 hr (Detrol LA) ferrous sulfate 325 mg (65 mg 325 mg PO DAILY 02/12/23 05/25/24 iron) tablet,delayed release pantoprazole 40 mg tablet,delayed 40 mg PO DAILY 02/12/23 05/25/24 release venlafaxine 37.5 mg 37.5 mg PO DAILY 02/12/23 05/25/24 capsule,extended release 24 hr zinc gluconate 50 mg tablet 50 mg PO DAILY 02/12/23 05/25/24 lisinopril 40 mg tablet 40 mg PO DAILY 11/19/23 05/25/24 mirtazapine 15 mg tablet 15 - 30 mg PO BEDTIME 11/19/23 05/25/24 simvastatin 10 mg tablet 10 mg PO QPM 11/19/23 05/25/24 Previous Rx's Medication Instructions Recorded nitroglycerin 0.4 mg sublingual 0.4 mg sublingual Q5M PRN chest 08/28/21 tablet (Nitrostat) pain #25 tabs levothyroxine 100 mcg tablet 100 mcg PO DAILY #90 tabs 06/09/22 Fastform brace #1 ea 11/24/23 amiodarone 100 mg tablet See Rx Instructions .Route 04/18/24 .COMPLEX #30 tabs amlodipine 5 mg tablet 5 mg PO DAILY #90 tabs 05/25/24 Allergies Allergy/AdvReac Type Severity Reaction Status Date / Time nifedipine Allergy ADR-Dizzine Verified 05/25/24 15:59 ss Review of Systems Const: Denies: fever(s), chills, body aches or change in appetite ENMT: Denies: throat pain or dental pain Card: Denies: chest pain Resp: Denies: dyspnea GI: Denies: abdominal pain, nausea, vomiting or diarrhea Musc: Denies: neck pain or back pain Neuro: Denies: headache(s) 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 Surgical History Status post hip hemiarthroplasty History of hysterectomy History of oophorectomy History of tonsillectomy and adenoidectomy History of hemorrhoidectomy History of hemiarthroplasty of left hip History of colonoscopy Family History Other CAD (coronary artery disease) Diabetes Heart disease Hypertension Social History Smoking and tobacco/nicotine status: never used tobacco/nicotine Alcohol intake: current Alcohol intake frequency: few times a month Alcohol type: wine Substance/Drug Use: never Household members: spouse Marital status: Physical Exam Const: COMMON NORMALS: no acute distress, patient oriented x3 and healthy appearing HENMT: COMMON NORMALS: normocephalic and atraumatic HEAD & SCALP: normocephalic and atraumatic Neck/C-Spine: COMMON NORMALS: full ROM and supple Chest: COMMONS NORMALS: normal inspection of the chest Resp: COMMON NORMALS: normal respiratory effort Extremity: COMMON NORMALS: full ROM NARRATIVE EXTREMITY EXAM: Puncture wound to left leg less than 1 cm actively oozing Neuro: COMMON NORMALS: patient oriented x3, moves all extremities and no focal motor deficits Psych: COMMON NORMALS: mental status grossly normal, Normal thought process present and cooperative THOUGHT PROCESS: Normal thought process present Skin: COMMON NORMALS: no rashes or lesions noted and no wounds GENERAL SKIN EXAM: no rashes or lesions noted Procedures Laceration Laceration 1: Site: lower extremity Side (If applicable): left Size (cm): 0.5 Description: linear Depth: simple, single layer Local Anesthetic: lidocaine 1% Amount of anesthesia used (mL): 6 Pre-repair: wound explored Skin layer closed with: vicryl Size (cm): 4-0 Number of sutures: 1 Technique: other (figure of 8) Course Vital Signs: Vital signs: Vital Signs Temperature 97.6 F 05/29/24 12:22 Pulse Rate 67 05/29/24 12:25 Blood Pressure 197/93 05/29/24 12:25 Pulse Oximetry 99 05/29/24 12:25 Oxygen Delivery Me thod Room Air 05/29/24 12:25 MDM - Wound/Laceration Medical Decision Making Patient presents here with bleeding from left leg wound has a small wound that has some active oozing did place a byaayv-dk-mwwlh stitch bleeding is stopped she is stable for discharge return if worsening Medical Records I reviewed the patient's medical records. No radiology studies performed this visit Discharge Plan Discharge Patient Disposition: Home Clinical Impression: Leg wound, left Condition: Stable Prescriptions: No Action fluticasone propionate 50 mcg/actuation spray,suspension 1 spray intranasal BID PRN (Reason: Nasal Congestion) Rx Instructions: administer into each nostril pantoprazole 40 mg tablet,delayed release (DR/EC) 40 mg PO DAILY venlafaxine 37.5 mg capsule,extended release 24hr 37.5 mg PO DAILY zinc gluconate 50 mg tablet 50 mg PO DAILY ferrous sulfate 325 mg (65 mg iron) tablet,delayed release (DR/EC) 325 mg PO DAILY (DME) Fastform brace See Rx Instructions .Route .MEDSUPPLY Qty: 1 0RF Rx Instructions: As directed amlodipine 5 mg tablet 5 mg PO DAILY Qty: 90 3RF nitroglycerin [Nitrostat] 0.4 mg tablet, sublingual 0.4 mg sublingual Q5M PRN (Reason: chest pain) Qty: 25 3RF Rx Instructions: do not exceed 3 doses per episode levothyroxine 100 mcg tablet 100 mcg PO DAILY Qty: 90 0RF amiodarone 100 mg tablet See Rx Instructions .ROUTE .COMPLEX Qty: 30 1RF Dose Instruction: TAKE 1 TABLET BY MOUTH EVERY DAY Rx Instructions: TAKE 1 TABLET BY MOUTH EVERY DAY PreserVision AREDS-2 [id number] wx-ukut-jf-mg Capsule 1 tab PO BID acetaminophen [Tylenol Extra Strength] 500 mg Tablet 1,000 mg PO BID tolterodine [Detrol LA] 4 mg capsule,extended release 24hr 4 mg PO QPM calcium carbonate 500 mg calcium (1,250 mg) Tablet 500 mg PO DAILY mirtazapine 15 mg tablet 15 - 30 mg PO BEDTIME lisinopril 40 mg tablet 40 mg PO DAILY simvastatin 10 mg tablet 10 mg PO QPM Discharge Orders: Discharge ED (Routine); Ordered 05/29/24 Ordered By: Naila Lowery Referrals: Lane Kennedy MD [Primary Care Provider] - 4-7 days Discharge Diet: Advance as tolerated Discharge Activity: Resume usual activity Patient Instructions: Puncture Wound (ED), Care For Your Absorbable Stitches (ED) Coding Level of Care Code 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
[2024-05-29 13:05] VITALS: BP 149/73; PULSE 64; O2SAT 96
== END 2024-05-29 13:17 | disposition home or self-care (01) ==
PROVIDERS: Emergency Provider Emergency Medicine; PCP Internal Medicine
DX: S81.812A Laceration without foreign body, left lower leg, initial encounter (principal); X58.XXXA Exposure to other specified factors, initial encounter
CPT/HCPCS: 12001; 99282

== ENCOUNTER 2024-08-03 08:00 | Outpatient (CLI) | payer MEDICARE, SELFPAY ==
--- NOTE | 2024-08-03 08:07 | MM_ITS ---
WS: [id number] SCREENING DIGITAL BREAST TOMOSYNTHESIS MAMMOGRAM WITH CAD HISTORY: SCREENING COMPARISON: 04/18/2021, 04/11/2020 Bilateral CC and MLO with tomosynthesis and synthetic mammography submitted. Computer aided detection analyzed. Breast composition: There are scattered areas of fibroglandular density. Subtle asymmetry in the cent ral LEFT breast, retroareolar. This is ill-defined and irregular shape with slight increased density. There are few additional scattered calcifications and arterial calcifications in each breast. MM/MM scr BI tomosynthesis [id number] IMPRESSION: BI-RADS: 0 - Incomplete: Need additional imaging evaluation. FOLLOW UP: Need Additional Imaging LEFT breast: Spot compression views (CC and MLO). True ML. Ultrasound to follow if abnormality persists.
== END 2024-08-03 08:01 | disposition home or self-care (01) ==
LOC: RAD 08:02
PROVIDERS: PCP Internal Medicine; Visit Provider Internal Medicine
DX: Z12.31 Encounter for screening mammogram for malignant neoplasm of breast (principal); R92.323 Mammographic fibroglandular density, bilateral breasts; N64.89 Other specified disorders of breast; R92.1 Mammographic calcification found on diagnostic imaging of breast
CPT/HCPCS: 77063; 77067

== ENCOUNTER 2024-08-29 08:23 | Outpatient (CLI) | payer MEDICARE, SELFPAY ==
--- NOTE | 2024-08-29 08:29 | MM_ITS ---
WS: [id number] ADDITIONAL VIEWS LEFT MAMMOGRAM with tomosynthesis. LEFT BREAST ULTRASOUND HISTORY: ABNORMAL MAMMO COMPARISON: 08/03/2024, 04/18/2021, 04/11/2020 LEFT MAMMOGRAM: Spot compression views and true ML with tomosynthesis and sympathetic mammography. Mass persists in the lateral LEFT breast at the nipple line after spot compression views. Mass is of increased density measuring 5 x 8 x 5 mm. Mass is slightly irregular and spiculated on the lateral pr ojection. There are additional benign calcifications within the breast these are scattered and not cl umped. LEFT BREAST ULTRASOUND 2-D and color Doppler imaging submitted. Ultrasound LEFT breast at 3:00, 1 cm from the nipple demonstrates a cystic mass measuring 0.8 x 0.6 x 0.5 cm. The wall is thickened and echogenic and asymmetric. Mild increased vascularity within the wa ll. This is not a simple cyst. There is a small amount of through-transmission. MM/MM diag LT tomosynthesis [id number] IMPRESSION: BI-RADS: 4- Suspicious Finding - Biopsy Should be Considered FOLLOW UP: Biopsy Recommended Notified Lane Kennedy MD at 08/29/2024 9:02 AM. Message left with Mesha.
== END 2024-08-29 08:24 | disposition home or self-care (01) ==
LOC: RAD 08:27
PROVIDERS: PCP Internal Medicine; Visit Provider Internal Medicine
DX: R92.8 Other abnormal and inconclusive findings on diagnostic imaging of breast (principal); N63.25 Unspecified lump in the left breast, overlapping quadrants; R92.1 Mammographic calcification found on diagnostic imaging of breast; N64.89 Other specified disorders of breast
CPT/HCPCS: 76642; 77061; G0279

== ENCOUNTER → 2024-09-09 10:36 | Outpatient (BNVA) | payer MEDICARE, SELFPAY | PROVIDERS: PCP Internal Medicine; Visit Provider Student in an Organized Health Care Education/Training Program | DX: N64.4 Mastodynia (principal); N63.20 Unspecified lump in the left breast, unspecified quadrant | CPT/HCPCS: 99204 ==

== ENCOUNTER 2024-09-14 10:44 | Outpatient (CLI) | payer MEDICARE, SELFPAY ==
--- NOTE | 2024-09-14 10:53 | US_ITS ---
WS: [id number] ULTRASOUND-GUIDED LEFT BREAST BIOPSY CLINICAL INFORMATION: LEFT BREAST MASS FINDINGS: The procedure including risks, benefits, and complications were discussed with the patient who agreed to proceed. Using sterile technique patient was prepped and draped in the usual sterile fashion. After 1% lidocaine utilizing real-time ultrasound guidance 3 14-gauge cores were obtained of the LEFT breast lesion at the 3 o'clock position 1 cm from the nipple. Subsequently a titanium clip was placed in the biopsy cavity. No immediate complications. The cystic lesion collapsed after the initial samples. Pathology demonstrates benign breast parenchyma with apocrine duct cyst. No evidence of malignancy. US/[place] [id number] IMPRESSION: 1. Uncomplicated ultrasound-guided LEFT breast biopsy. 2. The pathology demonstrates benign breast parenchyma. No evidence of maligna ncy. DENSITY: There are scattered areas of fibroglandular density. BI-RADS: 2 - Benign. FOLLOW UP: 1 Year Follow-up
== END 2024-09-14 10:45 | disposition home or self-care (01) ==
PROVIDERS: PCP Internal Medicine; Visit Provider Internal Medicine
DX: N63.21 Unspecified lump in the left breast, upper outer quadrant (principal); N60.32 Fibrosclerosis of left breast; N60.02 Solitary cyst of left breast
CPT/HCPCS: 19083; 88305

== ENCOUNTER 2024-09-27 12:52 | Outpatient (CLI) | payer MEDICARE, SELFPAY ==
--- NOTE | 2024-09-27 13:00 | MM_ITS ---
WS: [id number] ADDITIONAL VIEWS RIGHT MAMMOGRAM WITH DIGITAL BREAST TOMOSYNTHESIS. RIGHT BREAST ULTRASOUND HISTORY: right breast pain breast lump COMPARISON: 08/03/2024, 04/18/2021 RIGHT MAMMOGRAM: Spot compression views and true ML with digital breast tomosynthesis and SM. Breast composition: There are scattered areas of fibroglandular density. Additional spot compression views and true ML of the RIGHT breast are obtained today to supplement prior screening mammogram of 08/03/2024. Vascular calcifications and a few scattered punctate benign calcifications along the medial RIGHT breast. There is no mass identified. There is no distortion or soft tissue asymmetry. RIGHT BREAST ULTRASOUND 2-D and color Doppler imaging submitted. Ultrasound is obtained in the area of RIGHT breast pain which includes from 12:00 to 6:00. No soft tissue mass or shadowing identified. No cystic or solid mass. MM/MM diag RT tomosynthesis [id number] IMPRESSION: BI-RADS: 2 - Benign. FOLLOW UP: 1 Year Follow-up
--- NOTE | 2024-09-27 13:33 | US_ITS ---
WS: [id number] ADDITIONAL VIEWS RIGHT MAMMOGRAM WITH DIGITAL BREAST TOMOSYNTHESIS. RIGHT BREAST ULTRASOUND HISTORY: right breast pain breast lump COMPARISON: 08/03/2024, 04/18/2021 RIGHT MAMMOGRAM: Spot compression views and true ML with digital breast tomosynthesis and SM. Breast composition: There are scattered areas of fibroglandular density. Additional spot compression views and true ML of the RIGHT breast are obtained today to supplement prior screening mammogram of 08/03/2024. Vascular calcifications and a few scattered punctate benign calcifications along the medial RIGHT breast. There is no mass identified. There is no distortion or soft tissue asymmetry. RIGHT BREAST ULTRASOUND 2-D and color Doppler imaging submitted. Ultrasound is obtained in the area of RIGHT breast pain which includes from 12:00 to 6:00. No soft tissue mass or shadowing identified. No cystic or solid mass. US/US breast RT limited* [id number] IMPRESSION: BI-RADS: 2 - Benign. FOLLOW UP: 1 Year Follow-up
== END 2024-09-27 12:53 | disposition home or self-care (01) ==
LOC: RAD 12:54
PROVIDERS: PCP Internal Medicine; Visit Provider Student in an Organized Health Care Education/Training Program
DX: N63.0 Unspecified lump in unspecified breast (principal); N64.4 Mastodynia; R92.321 Mammographic fibroglandular density, right breast; R92.1 Mammographic calcification found on diagnostic imaging of breast
CPT/HCPCS: 76642; 77061; G0279

== ENCOUNTER → 2024-09-29 08:52 | Outpatient (BNVA) | payer MEDICARE, SELFPAY | PROVIDERS: PCP Internal Medicine; Visit Provider Student in an Organized Health Care Education/Training Program | DX: Z09 Encounter for follow-up examination after completed treatment for conditions other than malignant neoplasm (principal) | CPT/HCPCS: 99213 ==

== ENCOUNTER 2024-10-03 13:15 | Emergency (ER) | payer MEDICARE, SELFPAY ==
[2024-10-03] VITALS (10 sets, daily range): BP systolic 139–185; BP diastolic 81–114; PULSE 77–99; RESP 12–32; TEMP 36.6; O2SAT 96–99
--- NOTE | 2024-10-03 13:18 | XRR_ITS ---
PROCEDURE INFORMATION: Exam: XR Chest Exam date and time: 10/03/2024 1:56 PM Age: 89 years old Clinical indication: Pain; Angina pectoris; Additional info: Cp TECHNIQUE: Imaging protocol: Radiologic exam of the chest. Views: 1 view. COMPARISON: CR XR chest 1V portable [id number] 04/29/2022 6:31 PM FINDINGS: Lungs: Unremarkable. No consolidation. Pleural spaces: Unremarkable. No pleural effusion. No pneumothorax. Heart/Mediastinum: Unremarkable. No cardiomegaly. Bones/joints: Unremarkable. XR/XR chest 1V portable [id number] IMPRESSION: No acute findings.
--- NOTE | 2024-10-03 13:23 | ECG_ITS ---
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
--- NOTE | 2024-10-03 14:08 | W.ED.CHESTPA ---
HPI - Chest Pain General: Chief Complaint: Chest Pain Stated Complaint: chest pain, left arm pain, tingling Time Seen by Provider: 10/03/24 13:32 Source: patient Mode of arrival: ambulatory Limitations: no limitations History of Present Illness: 89-year-old female states that she has been having some chest pain that started this morning states it started early's morning as a pressure in her chest. She states that had lasted for a while and then since she came to the ER it is improving still having some slight pain but states is very minor she denies any shortness of breath denies any headaches denies any fevers. Associated symptoms: Deny abdominal pain, dyspnea, fever(s), nausea or vomiting Related Data Home Medications ?Medication ?Instructions ?Recorded ?Confirmed acetaminophen 500 mg tablet 1,000 mg PO BID 09/07/20 10/03/24 (Tylenol Extra Strength) vit C 250 mg-vit E 90 mg-zinc 40 1 tab PO BID 09/07/20 10/03/24 mg-copper 1 ep-lcymut-xbqisz capsule (PreserVision AREDS-2) fluticasone propionate 50 1 spray intranasal BID PRN Nasal 04/16/22 10/03/24 mcg/actuation nasal Congestion spray,suspension calcium carbonate 500 mg PO DAILY 04/29/22 10/03/24 tolterodine 4 mg capsule,extended 4 mg PO QPM 04/29/22 10/03/24 release 24 hr (Detrol LA) ferrous sulfate 325 mg (65 mg 325 mg PO DAILY 02/12/23 10/03/24 iron) tablet,delayed release pantoprazole 40 mg tablet,delayed 40 mg PO DAILY 02/12/23 10/03/24 release venlafaxine 37.5 mg 37.5 mg PO DAILY 02/12/23 10/03/24 capsule,extended release 24 hr zinc gluconate 50 mg tablet 50 mg PO DAILY 02/12/23 10/03/24 lisinopril 40 mg tablet 40 mg PO DAILY 11/19/23 10/03/24 simvastatin 10 mg tablet 10 mg PO QPM 11/19/23 10/03/24 amiodarone 100 mg tablet 100 mg PO DAILY 10/03/24 10/03/24 clopidogrel 75 mg tablet 75 mg PO DAILY 10/03/24 10/03/24 nifedipine 30 mg tablet,extended 30 mg PO DAILY 10/03/24 10/03/24 release Previous Rx's ?Medication ?Instructions ?Recorded nitroglycerin 0.4 mg sublingual 0.4 mg sublingual Q5M PRN chest 08/28/21 tablet (Nitrostat) pain #25 tabs levothyroxine 100 mcg tablet 100 mcg PO DAILY #90 tabs 06/09/22 Allergies Allergy/AdvReac Type Severity Reaction Status Date / Time No Known Allergies Allergy Verified 10/03/24 13:30 Review of Systems Const: Denies: fever(s), chills, body aches or change in appetite ENMT: Denies: throat pain or dental pain Card: Reports: chest pain Resp: Denies: dyspnea GI: Denies: abdominal pain, nausea, vomiting or diarrhea Musc: Denies: neck pain or back pain Skin/Breast: Denies: rash Neuro: Denies: headache(s) 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 Surgical History Status post hip hemiarthroplasty History of hysterectomy History of oophorectomy History of tonsillectomy and adenoidectomy History of hemorrhoidectomy History of hemiarthroplasty of left hip History of colonoscopy Family History Other CAD (coronary artery disease) Diabetes Heart disease Hypertension Social History Smoking and tobacco/nicotine status: never used tobacco/nicotine Alcohol intake: current Alcohol intake frequency: few times a month Alcohol type: wine Substance/Drug Use: never Household members: spouse Marital status: Physical Exam Const: COMMON NORMALS: no acute distress, patient oriented x3 and healthy appearing HENMT: COMMON NORMALS: normocephalic and atraumatic HEAD & SCALP: normocephalic and atraumatic Eye: COMMON NORMALS: conjunctivae normal CONJUNCTIVA: Yes conjunctivae normal Neck/C-Spine: COMMON NORMALS: full ROM and supple Chest: COMMONS NORMALS: normal inspection of the chest Resp: COMMON NORMALS: normal respiratory effort Cardio: COMMON NORMALS: regular rate, regular rhythm and No murmurs present (Cardio) RATE: regular rate RHYTHM: regular rhythm GI: COMMON NORMALS: Normal to inspection, nondistended, normoactive bowel sounds present, Soft to palpation, non-tender and no masses PALPATION: Yes Soft to palpation Extremity: COMMON NORMALS: normal to inspection and full ROM Neuro: COMMON NORMALS: patient oriented x3, moves all extremities and no focal motor deficits Psych: COMMON NORMALS: mental status grossly normal, Normal thought process present and cooperative THOUGHT PROCESS: Normal thought process present Skin: COMMON NORMALS: no rashes or lesions noted and no wounds GENERAL SKIN EXAM: no rashes or lesions noted Course Vital Signs: Vital signs: Vital Signs Temperature 97.8 F 10/03/24 13:20 Pulse Rate 85 10/03/24 15:30 Respiratory Rate 14 10/03/24 15:30 Blood Pressure 139/89 10/03/24 16:00 Pulse Oximetry 96 10/03/24 14:01 MDM - Chest Pain Medical Decision Making Patient presents for chest pain that has resolved troponins here negative no signs of ACS no signs of dissection or pulm embolism patient stable for discharge follow-up PCP return if worsening. Medical Records I reviewed the patient's medical records. Lab Data I reviewed the patient's lab results. 10/03/24 14:03 10/03/24 14:03 Radiology Impressions Chest X-Ray 10/03/24 13:18 IMPRESSION: No acute findings. Laboratory Results WBC 6.71 10^3/uL (3.29-11.43) 10/03/24 14:03 RBC 4.48 10^6/uL (3.85-5.65) 10/03/24 14:03 Hgb 12.50 g/dL (11.27-16.99) 10/03/24 14:03 Hct 40.5 % (36-47) 10/03/24 14:03 MCV 90.4 fl (85-98) 10/03/24 14:03 MCH 27.9 pg (27-33) 10/03/24 14:03 MCHC 30.9 g/dL (30-55) 10/03/24 14:03 RDW 14.1 % (12.1-15.1) 10/03/24 14:03 Plt Count 231 10^3/cmm (157-399) 10/03/24 14:03 MPV 9.4 fL (7.4-10.4) 10/03/24 14:03 Neut % (Auto) 65.1 % 10/03/24 14:03 Lymph % (Auto) 21.8 % 10/03/24 14:03 [place] % (Auto) 11.5 % 10/03/24 14:03 Eos % (Auto) 0.9 % 10/03/24 14:03 Baso % (Auto) 0.4 % 10/03/24 14:03 Neut # (Auto) 4.37 10^3/uL (1.8-7.7) 10/03/24 14:03 Lymph # (Auto) 1.5 10^3/uL (0.8-4.8) 10/03/24 14:03 [place] # (Auto) 0.8 10^3/uL (0.2-0.9) 10/03/24 14:03 Eos # (Auto) 0.1 10^3/uL (0.0-0.8) 10/03/24 14:03 Baso # (Auto) 0.0 10^3/uL (0.0-0.1) 10/03/24 14:03 Nucleated RBC % (auto) 0 % 10/03/24 14:03 Nucleated RBCs # 0.0 /100WBC 10/03/24 14:03 PT 13.10 SECONDS (12.1-14.9) 10/03/24 14:03 INR 0.92 (0.8-1.2) 10/03/24 14:03 Sodium 140 mmol/L (136-145) 10/03/24 14:03 Potassium 4.7 mmol/L (3.5-5.1) 10/03/24 14:03 Chloride 102 mmol/L (98-107) 10/03/24 14:03 Carbon Dioxide 27 mmol/L (22-29) 10/03/24 14:03 Anion Gap 15.7 (5-19) 10/03/24 14:03 BUN 32 mg/dL (8-23) H 10/03/24 14:03 Creatinine 1.3 mg/dL (0.5-0.9) H 10/03/24 14:03 GFR Calculation Not Reportable 10/03/24 14:03 Glucose 113 mg/dL (65-115) 10/03/24 14:03 Calculated Osmolality 298 mOsm/kg (285-295) H 10/03/24 14:03 Calcium 9.9 mg/dL (8.5-10.5) 10/03/24 14:03 Total Bilirubin 0.2 mg/dL (0.15-1.2) 10/03/24 14:03 AST 27 U/L (0-32) 10/03/24 14:03 ALT 16 U/L (0-33) 10/03/24 14:03 Alkaline Phosphatase 139 U/L (35-105) H 10/03/24 14:03 Troponin T Baseline 38 ng/L (0-10) H 10/03/24 14:03 Troponin T 120 Minute 38.51 ng/L (0-10) H 10/03/24 16:16 Delta Troponin T 0.51 ABS# (0-10) 10/03/24 16:16 Total Protein 7.0 g/dL (6.6-8.7) 10/03/24 14:03 Albumin 4.5 g/dL (3.5-5.2) 10/03/24 14:03 Globulin 2.5 g/dL (1.3-4.6) 10/03/24 14:03 All radiology interpretation(s) finalized by discharge EKG Data EKG 1: I personally reviewed and interpreted this EKG as follows: EKG interpretation date: 10/03/24 EKG interpretation time: 13:23 Interpretation: afib hr [address] or t wave bnormalities qrs 89 qtc 404 Discharge Plan Discharge Patient Disposition: Home Clinical Impression: Chest pain Condition: Stable Prescriptions: No Action fluticasone propionate 50 mcg/actuation spray,suspension 1 spray intranasal BID PRN (Reason: Nasal Congestion) Rx Instructions: administer into each nostril pantoprazole 40 mg tablet,delayed release (DR/EC) 40 mg PO DAILY venlafaxine 37.5 mg capsule,extended release 24hr 37.5 mg PO DAILY zinc gluconate 50 mg tablet 50 mg PO DAILY ferrous sulfate 325 mg (65 mg iron) tablet,delayed release (DR/EC) 325 mg PO DAILY nitroglycerin [Nitrostat] 0.4 mg tablet, sublingual 0.4 mg sublingual Q5M PRN (Reason: chest pain) Qty: 25 3RF Rx Instructions: do not exceed 3 doses per episode levothyroxine 100 mcg tablet 100 mcg PO DAILY Qty: 90 0RF PreserVision AREDS-2 [phone] dq-vfzm-af-mg Capsule 1 tab PO BID acetaminophen [Tylenol Extra Strength] 500 mg Tablet 1,000 mg PO BID tolterodine [Detrol LA] 4 mg capsule,extended release 24hr 4 mg PO QPM calcium carbonate 500 mg calcium (1,250 mg) Tablet 500 mg PO DAILY lisinopril 40 mg tablet 40 mg PO DAILY simvastatin 10 mg tablet 10 mg PO QPM nifedipine 30 mg tablet extended release 30 mg PO DAILY clopidogrel 75 mg tablet 75 mg PO DAILY amiodarone 100 mg tablet 100 mg PO DAILY Rx Instructions: TAKE 1 TABLET BY MOUTH EVERY DAY Discharge Orders: Discharge ED (Routine); Ordered 10/03/24 Ordered By: Naila Lowery Referrals: Lane Kennedy MD [Primary Care Provider] - Discharge Diet: Advance as tolerated Discharge Activity: Resume usual activity Patient Instructions: Chest Pain (ED) Print Language: Kyrgyz Coding Level of Care Code 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
[2024-10-03 14:17] LABS: Basophils % 0.4 %; Eosinophils # 0.1 10^3/uL (0.0-0.8); Eosinophils % 0.9 %; Hematocrit 40.5 % (36-47); Lymphocytes # 1.5 10^3/uL (0.8-4.8); Lymphocytes % 21.8 %; Mean Corpuscular HGB Conc 30.9 g/dL (30-55); Mean Corpuscular Hemoglobin 27.9 pg (27-33); Mean Corpuscular Volume 90.4 fl (85-98); Mean Platelet Volume 9.4 fL (7.4-10.4); Monocytes # 0.8 10^3/uL (0.2-0.9); Monocytes % 11.5 %; Neutrophils # 4.37 10^3/uL (1.8-7.7); Neutrophils % 65.1 %; Nucleated Red Blood Cells % 0 %; Platelet Count 231 10^3/cmm (157-399); Red Blood Count 4.48 10^6/uL (3.85-5.65); Red Cell Distribution Width 14.1 % (12.1-15.1); White Blood Count 6.71 10^3/uL (3.29-11.43)
[2024-10-03] MEDS: aspirin 81 mg Chew Tablet 324 MG PO (14:35)
[2024-10-03 14:37] LABS: Alanine Aminotransferase 16 U/L (0-33); Albumin Level 4.5 g/dL (3.5-5.2); Alkaline Phosphatase 139 U/L (35-105); Anion Gap 15.7 (5-19); Aspartate Amino Transferase 27 U/L (0-32); Blood Urea Nitrogen 32 mg/dL (8-23); Calcium 9.9 mg/dL (8.5-10.5); Carbon Dioxide 27 mmol/L (22-29); Chloride 102 mmol/L (98-107); Creatinine Clr Calc Pharmacy 25.1281; Globulin 2.5 g/dL (1.3-4.6); Glucose 113 mg/dL (65-115); Osmolality Calculated 298 mOsm/kg (285-295); Potassium 4.7 mmol/L (3.5-5.1); Sodium 140 mmol/L (136-145); Total Bilirubin 0.2 mg/dL (0.15-1.2); Troponin(5th) Baseline 38 ng/L (0-10)
[2024-10-03 14:40] LABS: INR 0.92 (0.8-1.2)
--- NOTE | 2024-10-03 15:18 | ECG_ITS ---
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
[2024-10-03 16:56] LABS: Troponin 5 2HR 38.51 ng/L (0-10); Troponin 5 2HR Delta 0.51 ABS# (0-10)
== END 2024-10-03 17:23 | disposition home or self-care (01) ==
PROVIDERS: Emergency Provider Emergency Medicine; PCP Internal Medicine
DX: R07.9 Chest pain, unspecified (principal); Z79.02 Long term (current) use of antithrombotics/antiplatelets; E78.5 Hyperlipidemia, unspecified; I10 Essential (primary) hypertension
CPT/HCPCS: 36415; 71045; 80053; 84484; 85025; 85610; 93005; 99285

== ENCOUNTER → 2024-10-20 14:50 | Outpatient (BNVA) | payer MEDICARE, SELFPAY | PROVIDERS: PCP Internal Medicine; Visit Provider Dermatology | DX: D69.2 Other nonthrombocytopenic purpura (principal); L73.8 Other specified follicular disorders; L82.1 Other seborrheic keratosis; D18.01 Hemangioma of skin and subcutaneous tissue; H61.031 Chondritis of right external ear; D48.5 Neoplasm of uncertain behavior of skin; L57.0 Actinic keratosis | CPT/HCPCS: 11102; 17000; 99203 ==

== ENCOUNTER → 2025-01-17 13:05 | Outpatient (BNVA) | payer MEDICARE, SELFPAY | PROVIDERS: PCP Internal Medicine; Visit Provider Dermatology | DX: L30.0 Nummular dermatitis (principal); D69.2 Other nonthrombocytopenic purpura; L82.1 Other seborrheic keratosis; Z08 Encounter for follow-up examination after completed treatment for malignant neoplasm; Z85.828 Personal history of other malignant neoplasm of skin; H61.031 Chondritis of right external ear; R20.8 Other disturbances of skin sensation; L53.8 Other specified erythematous conditions; L57.0 Actinic keratosis | CPT/HCPCS: 17000; 17110; 99214 ==

== ENCOUNTER 2025-02-17 10:40 | Outpatient (CLI) | payer MEDICARE, SELFPAY ==
--- NOTE | 2025-02-17 10:52 | XR_ITS ---
WS: [id number] Lumbar spine, 5 views including both obliques, 02/17/2025 Clinical Data: lumbago w/ sciatica, right side Comparison: Lumbar spine, 11/16/2017. Findings: No compression fractures or subluxation is seen. There is a dextroscoliosis. There is degenerative disc narrowing at all levels with osteoarthritis of all the lumbar vertebral bodies. No spondylolysis is seen on the oblique images. The transverse processes and SI joints are normal. There is a left hip arthroplasty. There is a large amount of fecal material in the colon. XR/XR lumbar spine min 4V [id number] Impression: 1. Dextroscoliosis. 2. 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 3. No spondylolysis on oblique images.
== END 2025-02-17 10:41 | disposition home or self-care (01) ==
LOC: RAD 10:45
PROVIDERS: PCP Internal Medicine; Visit Provider Internal Medicine
DX: M54.41 Lumbago with sciatica, right side (principal); M48.061 Spinal stenosis, lumbar region without neurogenic claudication; M41.86 Other forms of scoliosis, lumbar region; M15.9 Polyosteoarthritis, unspecified; Z96.642 Presence of left artificial hip joint; K56.41 Fecal impaction
CPT/HCPCS: 72110

== ENCOUNTER 2025-04-09 17:57 | Emergency (ER) | payer MEDICARE, SELFPAY ==
[2025-04-09 18:04] VITALS: BP 170/80; PULSE 65; RESP 17; TEMP 36.7; O2SAT 99; BMI 21.2
--- OUTSIDE RECORDS SUMMARY | 2025-04-09 18:05 | XMS_ITS | Patient Health Record ---
Author Organization [facility] Address [address] [place] [address] Care Team Providers Care Flatwork Finisher Name Role Phone Ryan Kennedy Primary Care Provider [phone] Leila Angelica Macias [phone] Allergies Allergen (clinical drug ingredient) Drug/Non Drug Allergy documented on EMR Reaction Allergy Type Onset Date Status nifedipine Nifedipine dizziness Drug Allergy Activ e Results Component Value Reference Range Notes Lumbosacral Spine Comp AP/La t w/ [id number] Reviewed date:02/20/2025 09:41:47 AM Interpretation: Performing Lab: Notes/Report: Reason For Referral Reason Mass detected L [facility] Diagnosis 1 Mass of left breast, unspecified quadrant (N63.20) Referral Organization [facility] Referring Provider First Name J Carlos seha Referring Provider Last Name Brent Referring Provider Speciality Internal M edicine Referred Provider Jhon Holder Referred Provider Specialty General Surg mitali General Notes Karen Watts 03:25:32 PM >faxed Stefanie Shrestha Lorrie 08/30/2024 04:06:07 PM >Verbal to [facility] to order biopsy - Dr Holder would not accept referral Referral Priority Routine Reason breast mass on US an d Mammo Diagnosis 1 Breast mass in femal e (N63.0) Referral Organization [facility] Referring Provider First Name J Carlos shea Referring Provider Last Name Brent Referring Provider Speciality Internal M edicine General Notes Karen Watts 04:38:24 PM >faxed Stefanie Shrestha Lorrie 09/07/2024 10:39:41 AM >Dr Holder not accepting pt for surgery - faxed to Dr Ta Quach - [phone] P - [phone] Heidi 10/06/2024 08:48:15 AM >PER CLINIC SUPPORT SHE WAS SCHEDULED 09/09 @ 10:30 SHE IS SENDING NOTE TO OFFICE TO SEE IF THEY CAN FAX US THE NOTES, Tara Verdugo 10/06/2024 09:09:24 AM >PROGRESS NOTES IN REFERRAL FILE Referral Priority Routine Referral Appointment Date 09/09/2024 Reason SUSPICIOUS SKIN LESI ON ABOUT RIGHT ANKLE Diagnosis 1 Neoplasm of uncertai n behavior of skin (D48.5) Referral Organization [facility] Referring Provider First Name J Carlos shea Referring Provider Last Name Brent Referring Provider Speciality Internal M edicine Referred Provider Marilu Spears Referred Provider Specialty Dermatology General Notes Tara Verdugo 025 08:16:13 AM >FAXED TO Kartik SMITH Heidi 10/04/2024 02:12:45 PM >PER AMANDA SHE IS SCHEDULED 10/20 @1Kartik Heidi 11/25/2024 10:40:48 AM >PER AMANDA SHE IS SENDING THE NOTESKartik Heidi 11/28/2024 09:55:53 AM >PROGRESS NOTES IN REFERRAL FILE Referral Priority Routine Referral Appointment Date 10/20/2024 Reason worsening lumbago Diagnosis 1 Lumbago with sciatic a, right side (M54.41) Referral Organization [facility] Referring Provider First Name J Carlos shea Referring Provider Last Name Brent Referring Provider Speciality Internal M edicine Referred Provider Baljit De Leon General Notes Karen Watts 09:50:50 AM CDT > faxed Kartik Cash Heidi 03/06/2025 08:28:39 AM CDT > PER FAX PT IS SCHEDULED 05/16 @ 3:20 Referral Priority Routine Referral Appointment Date 05/16/2025 Reason Eval and Treat Diagnosis 1 Lumbago with sciatic a, right side (M54.41) Referral Organization [facility] Referring Provider First Name J Carlos shea Referring Provider Last Name Kennedy Referring Provider Speciality Internal M edicine [facility] Referred Provider Baljit De Leon Referred Address [address] [facility],[place],[address],[place] Referred Provider Specialty Pain Medicin e General Notes Licha Alaniz 11:45:17 AM CDT > mailing npp, scheduled pt Referral Priority Routine Medications Medication SIG (Take, Route, Frequency, Duration) Notes Start Date End Date Status Calcium 500 MG Tablet 1 tablet with meal s Orally Once a day; Duration: 30 day(s) 06/23/2022 Active Venofer 20 MG/ML Solution as directed Intravenous Weekly; Duration: 1 days Venofer 750mg/15ml as directed Intravenous Patient needs dose weekly for weeks 01/25/2024 Not-Taking Iron 325 (65 Fe) MG Tablet 1 tablet Orally Every day Active Venofer 20 MG/ML Solution as directed Intravenous Weekly; Duration: 1 days Venofer 200 mg Intravenous patient needs dose weekly for 2 weeks 01/25/2024 Not-Taking Venofer 20 MG/ML Solution as directed Intravenous Weekly; Duration: 1 days Venofer 750mg/15ml 1 dose weekly for 2 weeks 01/25/2024 Not-Taki ng Amiodarone HCl 100 MG Tablet 1 tablet Orally Once a day; Duration: 30 days 06/23/2022 Active Tylenol Extra Strength 500 MG Tablet 2 tablets Orally two times daily 06/23/2022 Active Vitamin D3 Not-Takin g Mirtazapine 15 MG Tablet TAKE 1 OR 2 TAB LETS BY MOUTH AT BEDTIME; Duration: 90 Active Venlafaxine HCl ER 37.5 MG Capsule Extended Release 24 Hour TAKE 3 CAPSULES BY MOUTH DAILY AT 6AM; Duration: 90 Active Zinc Not-Taking NIFEdipine ER 30 MG Tablet Extended Release 24 Hour TAKE 1 TABLET BY MOUTH EVERY DAY ON EMPTY STOMACH; Duration: 30 Active Nitrostat 0.4 MG Tablet Sublingual 1 tab Sublingual as needed every 5 min 06/23/2022 Active Venofer 20 MG/ML Solution as directed Intravenous Weekly; Duration: 1 days Venofer 200 mg Intravenous patient needs dose weekly for 2 weeks, 1 days, 1, Start Date: 01/25/2024, Refills 1 01/25/2024 Not-Taking PreserVision AREDS 2 - Tablet Chewable 1 tab Orally twice a day 06/23/2022 Active Vitamin C Not-Taking Lisinopril 40 MG Tablet TAKE 1 TABLET BY MOUTH EVERY DAY; Duration: 90 Active Plavix 75 MG Tablet 1 tablet Orally Once a day Not-Taking Aspirin 81 MG Tablet Delayed Release 1 tablet Orally Once a day Active Tiadylt ER 120 MG Capsule Extended Release 24 Hour 1 capsule Orally Once a day Not-Taking Levothyroxine Sodium 100 MCG Tablet TAKE 1 TABLET BY MOUTH EVERY DAY FOR 90 DAYS; Duration: 90 Active Simvastatin 10 MG Tablet TAKE 1 TABLET B Y MOUTH EVERY DAY; Duration: 90 Not-Taki ng Tolterodine Tartrate ER 4 MG Capsule Extended Release 24 Hour TAKE 1 CAPSULE BY MOUTH EVERY DAY FOR 90 DAYS; Duration: 30 Active Pantoprazole Sodium 40 MG Tablet Delayed Release TAKE 1 TABLET BY MOUTH EVERY DAY; Duration: 30 Not-Taki ng Immunizations Vaccine Route Administration Date Status [facility] FLUAD, Trivalent, Syringe, 0.5mL, PF Unknown 05/20/2024 Administered During [facility] Mo nthly Call, patient reports flu shot administered at [facility] 2-3 weeks ago. Social History Tobacco Use: Social History Observation Description Date Details (start date - stop date) Never Smoker NA - NA Social History Depression Screening Social Info Question Answer Notes depression screening findings Findings Negative (0 -4) 10/21/24 PHQ-9 Little interest or p kirill in doing things Not at all Feeling down, depressed, or hopeless Not at all Trouble falling or staying asleep, or sleeping t oo much Not at all Feeling tired or having little energy Not at all Poor appetite or overeating Not at all Feeling bad about yourself, or that you are a failure, or have let yourself or your family down Not at all Trouble concentrating on thi ngs, such as reading the newspaper or watching television Not at all Moving or speaking so slowly that other people could have noticed. Or the opposite ? being so fidgety or restless that you have been moving around a lot more than usual Not at all Thoughts that you would be b sandra off , or of hurting yourself in some way Not at all Total Score 0 Drugs/Alcohol: Social Info Question Answer Notes Alcohol Screen (Audit-C) Did you have a drink containing alcohol in the past year? Yes How often did you have a drink containing alcohol in the past year? 2 to 4 times a month (2 points) How many drinks did you have on a typical day when you were drinking in the past year? 1 or 2 drinks (0 point) How often did you have 6 or more drinks on one occasion in the past year? Monthly (2 points) Points 4 Interpretation Positive Caffeine Intake: 1-2 cups per day Household: Social Info Question Answer Notes Household Private Home With spouse/life partner Marital status: Tobacco Use: Social Info Question Answer Notes Tobacco Control (Standard) Tobacco use: Nonsmoker Additional Details Category Social Info Options Details Drugs/Alcohol: Do you drink alcohol? Yes occassional wine Section Notes: 05/12/24 dep/tob - 05/12/24 dep/tob - 05/12/24 CIME Dep/tob- 10/21/24 dep/tob - 05/12/24 CIME Dep/tob- 10/21/24 dep/tob - 05/12/24 CIME Dep/tob- 10/21/24 05/12/24 05/12/24 05/12/24 dep/tob - 05/12/24 dep/tob - 05/12/24 CIME Dep/tob- 10/21/24 dep/tob - 05/12/24 CIME Dep/tob- 10/21/24 dep/tob - 05/12/24 CIME Dep/tob- 10/21/24 dep/tob - 05/12/24 CIME Dep/tob- 10/21/24 dep/tob - 05/12/24 CIME Dep/tob- 10/21/24 dep/tob - 05/12/24 05/12/24 05/12/24 Problems Problem Type SNOMED Code ICD Code Onset Dates Problem Status W/U Status Risk Notes Problem Hypothyroidism (50449039) Other specified hypothyroidism (E03.8) Active confirmed Problem Autoimmune thyroiditis (07167963) 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) Active confirmed Problem Chronic pain (72087111) Other chronic pain (G89.29) Active confirmed Problem Paroxysmal atrial fibrillation (137008741) Paroxysmal atrial fibrillation (I48.0) Active confirmed Problem Sciatica (57384475) Lumbago with sciatica, right side (M54.41) Active confirmed Problem Essential hypertension (95715708) Essential hypertension (I10) Active confirmed Problem Edema (838262898) Lower extremit y edema (R60.0) Active confirmed Problem Hyperlipidaemia (39630769) Hyperlipemia (E78.5) Active confirmed Problem Long-term current use of drug therapy (971238622) prison current use of amiodarone (Z79.899) Active confirmed Problem History of anemia (852423791) History of anemia (Z86.2) Active confirmed Problem Fall () Fall (W19.XXXA) Active confirmed Problem Generalized anxiety disorder (01191340) LUZ (generalized anxiety disorder) (F41.1) Active confirmed Problem Atrial fibrillation (22007228) PAF (paroxysmal atrial fibrillation) (I48.0) Active confirmed Problem Presence of Watc hman left atrial appendage closure device (Z95.818) Active confirmed Problem 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) Active confirmed Problem Breast lump (14588232) Breast mass in female (N63.0) Active confirmed Problem Frailty (finding) (675863973) Frailty syndrome in geriatric patient (R54) Active confirmed Problem Insomnia disorder related to another mental disorder (48954061) Psychophysiological insomnia (F51.04) Active confirmed Vital Signs Heart Rate 59 /min 02/17/2025 Temperature 98.3 degrees Fahrenheit 02/17/2025 Height-cm 165.1 cm 02/17/2025 Oximetry 96 % 02/17/2025 Blood pressure diastolic 63 mm Hg 02/17/2025 Weight-kg 54.89 kg 02/17/2025 Height 65 in 02/17/2025 Blood pressure systolic 130 mm Hg 02/17/2025 Weight 121 lbs 02/17/2025 BMI 20.13 kg/m2 02/17/2025 Encounters Encounter Location Date Provider Diagnosis [facility] [address] [place] [phone] 05/12/2024 Ryan Kennedy Autoimmune thyroiditis E06.3 ; PAF (paroxysmal atrial fibrillation) I48.0 ; Presence of Watchman left atrial appendage closure device Z95.818 ; Depression screen Z13.31 and Body mass index [BMI] 21.0-21.9, adult Z68.21 [facility] [address] [place] [phone] 06/13/2024 Ryan Kennedy Lower extremity edema R60.0 ; Hyperlipemia E78.5 ; Presence of Watchman left atrial appendage closure device Z95.818 and BMI 22.0-22.9, adult Z68.22 [facility] [address] [place] [phone] 09/05/2024 Ryan Kennedy Breast mass in female N63.0 ; Other specified hypothyroidism E03.8 ; Essential hypertension I10 ; Depression screen Z13.31 and Body mass index [BMI] 21.0-21.9, adult Z68.21 [facility] [address] [place] [phone] 10/21/2024 Ryan Kennedy Essential hypertension I10 ; Iron malabsorption K90.9 ; LUZ (generalized anxiety disorder) F41.1 ; PAF (paroxysmal atrial fibrillation) I48.0 and Depression screen Z13.31 [facility] [place] 01/04/2025 Ryan Kennedy Essential hypertension I10 and Hyperlipemia E78.5 [facility] [address] [place] [phone] 02/17/2025 Ryan Kennedy Autoimmune thyroiditis E06.3 ; Other chronic pain G89.29 ; Lumbago with sciatica, right side M54.41 ; Essential hypertension I10 and Presence of Watchman left atrial appendage closure device Z95.818 [facility] [place] 04/11/2024 Ryan Kennedy Essential hypertension I10 and LUZ (generalized anxiety disorder) F41.1 [facility] [place] 05/13/2024 Ryan Kennedy Essential hypertension I10 and Hyperlipemia E78.5 [facility] [place] 06/20/2024 Ryan Kennedy Hyperlipemia E78.5 and Essential hypertension I10 [facility] [place] 07/21/2024 Ryan Kennedy Essential hypertension I10 and Hyperlipemia E78.5 [facility] [address] [place] [phone] 08/03/2024 Ryan Kennedy [facility] [place] 08/23/2024 Christrayna Kennedy Essential hypertension I10 and Hyperlipemia E78.5 [facility] [address] [place] [address] 08/29/2024 Ryan Kennedy Mass of left breast, unspecified quadrant N63.20 [facility] [address] [phone] 09/07/2024 Ryan Kennedy [facility] [place] 09/22/2024 Christophruthie Gutierrezran Essential hypertension I10 and Hyperlipemia E78.5 [facility] [place] 10/17/2024 Christopher Kennedy Essential hypertension I10 and Hyperlipemia E78.5 [facility] [place] 10/28/2024 Christopher Kennedy Essential hypertension I10 and Hyperlipemia E78.5 [facility] [place] 12/05/2024 Christopher Kennedy Essential hypertension I10 and Paroxysmal atrial fibrillation I48.0 [facility] [place] 01/04/2025 Christrayna Gutierrezran Hyperlipemia E78.5 and Essential hypertension I10 [facility] [place] 02/02/2025 Christopher Kennedy Essential hypertension I10 and LUZ (generalized anxiety disorder) F41.1 [facility] [place] 03/10/2025 Christophruthie Gutierrezran Essential hypertension I10 and Other chronic pain G89.29 Assessments Encounter Date Diagnosis (ICD Code) Assessment Notes Treatment Notes Treatment Clinical Notes Section Notes 04/11/2024 Essential hypertension (ICD-10 - I10) 05/12/2024 Autoimmune thyroiditis (ICD-10 - E06.3) 05/12/2024 PAF (paroxysmal atrial fibrillation) (ICD-10 - I48.0) 06/13/2024 Lower extremity edema (ICD-10 - R60.0) 06/13/2024 Hyperlipemia (ICD-10 - E78.5) 05/13/2024 Essential hypertension (ICD-10 - I10) 06/20/2024 Hyperlipemia (ICD-10 - E78.5) 07/21/2024 Essential hypertension (ICD-10 - I10) 08/23/2024 Essential hypertension (ICD-10 - I10) 08/29/2024 Mass of left breast, unspecified quadrant (ICD-10 - N63.20) 09/05/2024 Breast mass in female (ICD-10 - N63.0) 09/05/2024 Other specified hypothyroidism (ICD-10 - E03.8) Good 09/22/2024 Essential hypertension (ICD-10 - I10) 10/17/2024 Essential hypertension (ICD-10 - I10) 10/21/2024 Essential hypertension (ICD-10 - I10) good control 10/28/2024 Essential hypertension (ICD-10 - I10) 12/05/2024 Essential hypertension (ICD-10 - I10) 01/04/2025 Hyperlipemia (ICD-10 - E78.5) 01/04/2025 Essential hypertension (ICD-10 - I10) 02/17/2025 Autoimmune thyroiditis (ICD-10 - E06.3) 02/17/2025 Other chronic pain (ICD-10 - G89.29) 02/02/2025 Essential hypertension (ICD-10 - I10) 03/10/2025 Essential hypertension (ICD-10 - I10) 03/10/2025 Other chronic pain (ICD-10 - G89.29) 02/02/2025 LUZ (generalized anxiety disorder) (ICD-10 - F41.1) 02/17/2025 Lumbago with sciatica, right side (ICD-10 - M54.41) 01/04/2025 Hyperlipemia (ICD-10 - E78.5) 01/04/2025 Essential hypertension (ICD-10 - I10) 12/05/2024 Paroxysmal atrial fibrillation (ICD-10 - I48.0) 10/28/2024 Hyperlipemia (ICD-10 - E78.5) 10/21/2024 Iron malabsorption (ICD-10 - K90.9) 10/17/2024 Hyperlipemia (ICD-10 - E78.5) Learning About High Cholesterol material was printed 09/22/2024 Hyperlipemia (ICD-10 - E78.5) 09/05/2024 Essential hypertension (ICD-10 - I10) Good 08/23/2024 Hyperlipemia (ICD-10 - E78.5) 07/21/2024 Hyperlipemia (ICD-10 - E78.5) 06/20/2024 Essential hypertension (ICD-10 - I10) 05/13/2024 Hyperlipemia (ICD-10 - E78.5) 06/13/2024 Presence of Watchman left atrial appendage closure device (ICD-10 - Z95.818) 05/12/2024 Presence of Watchman left atrial appendage closure device (ICD-10 - Z95.818) 04/11/2024 LUZ (generalized anxiety disorder) (ICD-10 - F41.1) 05/12/2024 Depression screen (ICD-10 - Z13.31) 06/13/2024 BMI 22.0-22.9, adult (ICD-10 - Z68.22) 09/05/2024 Depression screen (ICD-10 - Z13.31) 10/21/2024 LUZ (generalized anxiety disorder) (ICD-10 - F41.1) 02/17/2025 Essential hypertension (ICD-10 - I10) 02/17/2025 Presence of Watchman left atrial appendage closure device (ICD-10 - Z95.818) 10/21/2024 PAF (paroxysmal atrial fibrillation) (ICD-10 - I48.0) SR today. 09/05/2024 Body mass index [BMI] 21.0-21.9, adult (ICD-10 - Z68.21) 05/12/2024 Body mass index [BMI] 21.0-21.9, adult (ICD-10 - Z68.21) 10/21/2024 Depression screen (ICD-10 - Z13.31) Plan Of Treatment Pending Test Test Name Order Date Basic Metabolic Panel (BMP) 72015 2023 Cardiac Echo Transesophageal [id number] Carbon Monoxide Diffusing Capacity-37403 12/28/2023 PFT [id number] 12/28/2023 PFT Thoracic Gas Volume-[id number] 12/28/2023 Spirometry Without Bronchodilator-61150 12/28/2023 Next Appt Details Provider Name:Clover Harden, 05/16/2025 03:20:00 PM, [address] [place], [address], Provider Name:Ryan Kennedy, 06/20/2025 09:20:00 AM, [address] [place] [address], [phone], Insurance Providers Payer Name Payer Address Payer Phone Subscriber Number Group Number Insured Name Patient Relationship to Insured Coverage Start Date Coverage End Date [facility] Medicare Advantage - PPO [address] [address] [place] [address] [id number] JayleenJaylin khan Self - patient is the insured Medical (General) History Medical History History ICD Code atrial fibrillation, chronic chronic nasal congestion essential hypertension hyperlipidemia 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
--- OUTSIDE RECORDS SUMMARY | 2025-04-09 18:05 | XMS_ITS | Clinical Summary ---
Author Organization [facility] Address [address] 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
--- NOTE | 2025-04-09 18:25 | W.ED.WOUNDLC ---
HPI - Wound/Laceration General: Chief Complaint: Wound/Laceration Stated Complaint: Dog scatch left hand Time Seen by Provider: 04/09/25 17:59 Source: patient Mode of arrival: ambulatory Limitations: no limitations History of Present Illness: Patient is an 89-year-old female who presents to the emergency department With skin tear to her left hand caused by her dog. States that she was playing with the dog and it scratched her, tetanus is up-to-date and dog's vaccinations are up-to-date. Bleeding controlled on arrival, she is not on a blood thinner. No other symptoms reported at this time, is not reporting any pain. Onset (ago): minute(s) Extremity Location: Left: hand Place: home Patient tetanus UTD: Yes Context: accidental Associated symptoms: Denies chills, fever(s), nausea or vomiting Related Data Home Medications ?Medication ?Instructions ?Recorded ?Confirmed acetaminophen 500 mg tablet 1,000 mg PO BID 09/07/20 10/03/24 (Tylenol Extra Strength) vit C 250 mg-vit E 90 mg-zinc 40 1 tab PO BID 09/07/20 10/03/24 mg-copper 1 up-thdkkj-nnryeg capsule (PreserVision AREDS-2) fluticasone propionate 50 1 spray intranasal BID PRN Nasal 04/16/22 10/03/24 mcg/actuation nasal Congestion spray,suspension calcium carbonate 500 mg PO DAILY 04/29/22 10/03/24 tolterodine 4 mg capsule,extended 4 mg PO QPM 04/29/22 10/03/24 release 24 hr (Detrol LA) ferrous sulfate 325 mg (65 mg 325 mg PO DAILY 02/12/23 10/03/24 iron) tablet,delayed release pantoprazole 40 mg tablet,delayed 40 mg PO DAILY 02/12/23 10/03/24 release venlafaxine 37.5 mg 37.5 mg PO DAILY 02/12/23 10/03/24 capsule,extended release 24 hr zinc gluconate 50 mg tablet 50 mg PO DAILY 02/12/23 10/03/24 lisinopril 40 mg tablet 40 mg PO DAILY 11/19/23 10/03/24 simvastatin 10 mg tablet 10 mg PO QPM 11/19/23 10/03/24 clopidogrel 75 mg tablet 75 mg PO DAILY 10/03/24 10/03/24 nifedipine 30 mg tablet,extended 30 mg PO DAILY 10/03/24 10/03/24 release Previous Rx's ?Medication ?Instructions ?Recorded nitroglycerin 0.4 mg sublingual 0.4 mg sublingual Q5M PRN chest 08/28/21 tablet (Nitrostat) pain #25 tabs levothyroxine 100 mcg tablet 100 mcg PO DAILY #90 tabs 06/09/22 amiodarone 100 mg tablet 100 mg PO DAILY #90 tabs 10/06/24 amoxicillin 875 mg-potassium 1 tab PO BID 7 days #14 tabs 04/09/25 clavulanate 125 mg tablet Allergies Allergy/AdvReac Type Severity Reaction Status Date / Time No Known Allergies Allergy Verified 10/03/24 13:30 Review of Systems General: Reports: 10 or more systems reviewed and unremarkable except in HPI and below Const: Denies: fever(s) or chills Card: Denies: chest pain Resp: Denies: dyspnea GI: Denies: abdominal pain, nausea, vomiting or diarrhea Musc: Denies: extremity pain or joint pain Skin/Breast: Reports: new lesions (Skin tear to left hand); Denies: rash, skin pain or skin tenderness Neuro: Denies: headache(s) 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 Surgical History Status post hip hemiarthroplasty History of hysterectomy History of oophorectomy History of tonsillectomy and adenoidectomy History of hemorrhoidectomy History of hemiarthroplasty of left hip History of colonoscopy Family History Other CAD (coronary artery disease) Diabetes Heart disease Hypertension Social History Smoking and tobacco/nicotine status: never used tobacco/nicotine Alcohol intake: current Alcohol intake frequency: few times a month Alcohol type: wine Substance/Drug Use: never Household members: spouse Marital status: Physical Exam Const: COMMON NORMALS: no acute distress, average body habitus, patient oriented x3, no limitations, healthy appearing, alert and well nourished HENMT: COMMON NORMALS: normocephalic and atraumatic HEAD & SCALP: normocephalic and atraumatic Neck/C-Spine: COMMON NORMALS: full ROM, no lymphadenopathy, supple and no meningeal signs Resp: COMMON NORMALS: normal respiratory effort, No use of accessory muscles and clear to auscultation bilaterally AUSCULTATION: clear to auscultation bilaterally Cardio: COMMON NORMALS: regular rate and regular rhythm RATE: regular rate RHYTHM: regular rhythm Extremity: COMMON NORMALS: full ROM and capillary refill normal Neuro: COMMON NORMALS: patient oriented x3 SENSORIUM/ORIENTATION: Yes alert MENINGEAL SIGNS: Yes no meningeal signs Skin: COMMON NORMALS: turgor normal NARRATIVE SKIN EXAM: Large skin tear to left hand with no active bleeding. GENERAL SKIN EXAM: turgor normal Course Vital Signs: Vital signs: Vital Signs Temperature 98.1 F 04/09/25 18:04 Pulse Rate 65 04/09/25 18:04 Respiratory Rate 17 04/09/25 18:04 Blood Pressure 170/80 04/09/25 18:04 Pulse Oximetry 99 04/09/25 18:04 Oxygen Delivery Me thod Room Air 04/09/25 18:04 MDM - Wound/Laceration Medical Decision Making Patient presented after dog scratch top of her left hand, causing skin tear. There is no active bleeding on arrival, her tetanus is up-to-date and the dog's vaccinations are up-to-date. Irrigated here in the emergency department and she will have dry dressing placed with Kerlix, and educated on how to care for the wound at home and will be started on Augmentin. No further treatment or workup necessary in the ED at this time. No radiology studies performed this visit Discharge Plan Discharge Patient Disposition: Home Clinical Impression: Dog scratch, Skin tear Condition: Stable Prescriptions: New amoxicillin-pot clavulanate 875-125 mg tablet 1 tab PO BID 7 Days Qty: 14 0RF No Action fluticasone propionate 50 mcg/actuation spray,suspension 1 spray intranasal BID PRN (Reason: Nasal Congestion) Rx Instructions: administer into each nostril pantoprazole 40 mg tablet,delayed release (DR/EC) 40 mg PO DAILY venlafaxine 37.5 mg capsule,extended release 24hr 37.5 mg PO DAILY zinc gluconate 50 mg tablet 50 mg PO DAILY ferrous sulfate 325 mg (65 mg iron) tablet,delayed release (DR/EC) 325 mg PO DAILY nitroglycerin [Nitrostat] 0.4 mg tablet, sublingual 0.4 mg sublingual Q5M PRN (Reason: chest pain) Qty: 25 3RF Rx Instructions: do not exceed 3 doses per episode levothyroxine 100 mcg tablet 100 mcg PO DAILY Qty: 90 0RF amiodarone 100 mg tablet 100 mg PO DAILY Qty: 90 3RF Rx Instructions: TAKE 1 TABLET BY MOUTH EVERY DAY PreserVision AREDS-2 [id number] xa-biot-qh-mg Capsule 1 tab PO BID acetaminophen [Tylenol Extra Strength] 500 mg Tablet 1,000 mg PO BID tolterodine [Detrol LA] 4 mg capsule,extended release 24hr 4 mg PO QPM calcium carbonate 500 mg calcium (1,250 mg) Tablet 500 mg PO DAILY lisinopril 40 mg tablet 40 mg PO DAILY simvastatin 10 mg tablet 10 mg PO QPM nifedipine 30 mg tablet extended release 30 mg PO DAILY clopidogrel 75 mg tablet 75 mg PO DAILY Discharge Orders: Discharge ED (Routine); Ordered 04/09/25 Ordered By: Delfin Padron Referrals: Lane Kennedy MD [Primary Care Provider, Internal Medicine] Patient Instructions: Patient Portal & Lina Instructions Activity Restrictions/Additional Instructions: Dog Scratch Discharge Instructions Wound Care at Home - Keep the wound clean: Gently wash the area with mild soap and running water once daily. Pat dry with a clean towel. Avoid scrubbing, which can damage healing skin.[1]https://pubmed.ncbi.nlm.nih.gov/34722840[2]https://www.ahajournals.org/doi/abs/10.1161/CIR.1164781168032637?url_ver=Z39.88-2003&rfr_id=gregor:rid:crossref.org&rfr_dat=cr_pub%20%200pubmed[3]https://wwwnc.cdc.gov/travel/yellowbook/2023/environment dl-nacomug-sigwz/rwmvtuaa-rgllimxpy-vyimr-umequu-bpmlovnuo-erc-other-hazards - Dressing the wound: Cover the wound with a non-stick, sterile dressing (such as a film or petrolatum gauze). Change the dressing at least once daily, or sooner if it becomes wet or dirty. Occlusive dressings (those that keep the wound moist) help wounds heal better than dry dressings.[2]https://www.ahajournals.org/doi/abs/10.1161/CIR.7260405426601775?url_ver=Z39&rfr_id=gregor:rid:FlyClip.org&rfr_dat=cr_pub%20%200pubmed - Do not apply topical antibiotics or antiseptics unless specifically instructed, as these do not improve healing or reduce infection rates in clean wounds.[2]https://www.ahajournals.org/doi/abs/10.1161/CIR.8690316843860165?url_ver=Z39&rfr_id=gregor:rid:FlyClip.LoveThat[employer]&rfr_dat=cr_pub%20%200pubmed - Keep the hand elevated as much as possible to reduce swelling. Medication - Amoxicillin-clavulanate (Augmentin): Take as prescribed, twice daily for one week. This antibiotic helps prevent infection from bacteria commonly found in dog bites and scratches, especially in wounds to the hand.[1]https://pubmed.ncbi.nlm.nih.gov/02305355[4]https://[employer].com/luis f/article-lookup/doi/10.1093/luis f/azj788 - Finish the entire course even if the wound looks better. What to Watch For: Signs You Should Return for Medical Evaluation Return to the emergency department or contact your healthcare provider if you notice any of the following: - Increasing redness, warmth, or swelling around the wound - Pus or foul-smelling drainage from the wound - Fever or chills - Red streaks spreading from the wound - Severe pain or loss of movement in the hand or fingers - Numbness or tingling in the hand - The wound edges are opening up or the skin is turning dark - Any signs of allergic reaction to the medication (rash, swelling, difficulty breathing) Other Important Information - Your tetanus vaccination is up-to-date; no further action is needed for tetanus at this time.[1]https://pubmed.ncbi.nlm.nih.gov/31239234[5]https://pubmed.ncbi.nlm.nih.gov/90899957 - Rabies risk is extremely low for scratches that do not break the skin, especially from known, healthy dogs. If the dog becomes ill or behaves unusually, notify your healthcare provider.[1]https://pubmed.ncbi.nlm.nih.gov/06173891[4]https://[employer]/luis f/article-lookup/doi/10.1093/luis f/lom509 - If you have any underlying health conditions (such as diabetes, poor circulation, or immune system problems), monitor the wound closely and seek care promptly if any concerns arise.[4]https://[employer]/luis f/article-lookup/doi/10.1093/luis f/gys943 Follow-Up - If the wound is not improving after 48 hours, or if you have any concerns, contact your healthcare provider. Hand Hygiene - Wash your hands before and after touching the wound or changing the dressing. Activity - Avoid strenuous use of the affected hand until the wound has healed. These instructions are based on current guidelines and evidence for the management of dog bite and scratch wounds to the hand.[1]https://pubmed.ncbi.nlm.nih.gov/64776016[4]https://[employer]/luis f/article-lookup/doi/10.1093/luis f/phx386[2]https://www.ahajournals.org/doi/abs/10.1161/CIR.8395057794313494?url_ver=Z39.88-2003&rfr_id=gregor:rid:crossref.org&rfr_dat=cr_pub%20 %200pubmed References Dog and Cat Bites: Rapid Evidence Reviewhttps://pubmed.ncbi.nlm.nih.gov/59723005. Gerard PATEL, Jordon FO. [place] Family Physician. 2022;108(5):501-505. 2023 [place] Heart Association and [place] Guidelines for First Aidhttps://www.ahajournals.org/doi/abs/10.1161/CIR.4355677669247974?url_ver=Z39.88-2003&rfr_id=gregor:rid:crossref.org&rfr_dat=cr_pub%20%200pubmed. Sara Denton EK, Vandana MJ, Samir K, et al. Circulation. 2023;150(24):z173-c427. doi:10.1161/CIR.5226128346880267. Zoonotic Exposures: Bites, Stings, Scratches & Other Hazardshttps://wwwnc.cdc.gov/travel/yellowbook/2023/eangjjbubejeo-ruaprtu-ywczg/xquvgjvw-kvvseaeev-bupyh-ncwrfr-bmcfdvhyp-yzr-other-hazards. Kayla Red,?Mitch Piña,?Mariza Bansal,?Lazara Bravo. [facility] Yellow Book. Practice Guidelines for the Diagnosis and Management of Skin and Soft Tissue Infections: 2014 Update by the Infectious Diseases Society of Americahttps://[employer].Unsub[employer].com/luis f/article-lookup/doi/10.1093/luis f/qgf906. Kelechi DL, Kalee AL, Chambers HF, et al. Clinical Infectious Diseases : An Official Publication of the Infectious Diseases Society of [place]. 2014;59(2):147-59. doi:10.1093/luis f/zow093. Antibiotic Prophylaxis in Trauma: Global Gregory for Infection in Surgery, Surgical Infection Society Europe, World Surgical Infection Society, [place] Association for the Surgery of Trauma, and World Society of Emergency Surgery Guidelineshttps://pubmed.ncbi.nlm.nih.gov/87180560. Wili Locke, [place] M, Bernardo R, et al. The Journal of Trauma and Acute Care Surgery. 2023;96(4):674-682. doi:10.1097/TA.6600179215005216. Print Language: Maori Coding Level of Care Code ED Outboard Motor Tester for [place] Rush
== END 2025-04-09 18:41 | disposition home or self-care (01) ==
PROVIDERS: Emergency Provider Physician Assistant; PCP Internal Medicine
DX: S61.412A Laceration without foreign body of left hand, initial encounter (principal); W54.8XXA Other contact with dog, initial encounter; Z79.02 Long term (current) use of antithrombotics/antiplatelets; E78.5 Hyperlipidemia, unspecified; I10 Essential (primary) hypertension
CPT/HCPCS: 99283; J9999

== ENCOUNTER → 2025-06-30 08:54 | Outpatient (BNVA) | payer MEDICARE, SELFPAY | PROVIDERS: PCP Internal Medicine; Visit Provider Internal Medicine Cardiovascular Disease | DX: I48.20 Chronic atrial fibrillation, unspecified (principal); I10 Essential (primary) hypertension | CPT/HCPCS: 99214 ==